=== PATIENT | female | born 1950 | race Caucasian/White ===

== ENCOUNTER → 2017-03-29 09:12 | Outpatient (CLI) | payer BC, SELFPAY ==
--- NOTE | 2017-03-29 09:18 | VDLE_ITS ---
Reason For Study: LEG PAIN, SWELLING RIGHT LEFT CFV is compressible, spontaneous, phasic, CFV is compressible, spontaneous, phasic, competent and demonstrates normal competent, and demonstrates normal augmentation. augmentation. FV is compressible, spontaneous, phasic, FV is compressible, spontaneous, phasic, competent and demonstrates normal competent and demonstrates normal augmentation. augmentation. POP V is compressible, spontaneous, phasic, POP V is compressible, spontaneous, phasic, competent and demonstrates normal competent and demonstrates normal augmentation. augmentation. T/P Trunk is compressible. T/P Trunk is compressible. PTV is compressible. PTV is compressible. RT PerV is compressible. LT PerV is compressible. RT GSV is INCOMPETENT at the SFJ for greater Left GSV is competent. than .5 sec. Left SSV is competent. RT GSV is competent throughout the remainder of vessel. RT SSV is competent. Procedure Exam performed in department. Interpretation Summary Deep veins of the lower extremities are bilaterally patent and compressible segmentally. There is no evidence of deep vein thrombosis on either side. Valvular competence appears intact within the proximal deep venous systems bilaterally. The greater saphenous veins appear bilaterally patent and compressible segmentally. The right sapheno-femoral junction is incompetent . Valvular competence appears to be intact segmentally within the greater saphenous veins bilaterally. Small saphenous veins are patent and competent bilaterally. Ordering Physician: Klaus Cruz Referring Physician: SHARITA COPELAND Performed By: Vee Castillo, DAVID, RVT
--- NOTE | 2017-04-05 21:55 | LEAS_ITS ---
Arterial Study - Arterial Study Arterial Study: This is a 66-year-old female with a history of hyperlipidemia. Suspecting the presence of atherosclerotic peripheral arterial occlusive disease, the patient was brought to the noninvasive vascular laboratory at this time for the purpose of bilateral noninvasive lower extremity arterial assessment. Doppler signal assessment was used to evaluate the pulses at ankle level bilaterally. The posterior tibial and dorsalis pedis pulses were triphasic bilaterally. Segmental limb pressures were obtained at ankle level bilaterally. The right ankle pressure, as determined by posterior tibial pulse, was measured at 168 mmHg. The right ankle pressure, as determined by dorsalis pedis pulse, was measured at 179 mmHg. The left ankle pressure, as determined by posterior tibial pulse, was measured at 170 mmHg. The left ankle pressure, as determined by dorsalis pedis pulse, was measured at 162 mmHg. Resting ankle-brachial indices were calculated bilaterally. The resting right ankle-brachial index was calculated to be 1.27. The resting left ankle- brachial index was calculated to be 1.21. Impression: Based upon the findings of this resting noninvasive lower extremity arterial study, there is no evidence of significant atherosclerotic peripheral arterial occlusive disease in the lower extremities bilaterally. Triphasic waveforms were noted at ankle level bilaterally. Resting ankle-brachial indices were bilaterally normal. In summary, this represents a normal resting noninvasive lower extremity arterial study bilaterally.
== END ==
PROVIDERS: Family Provider Family Medicine; PCP Family Medicine; Visit Provider Surgery
DX: I73.9 Peripheral vascular disease, unspecified (principal); M79.89 Other specified soft tissue disorders; I87.2 Venous insufficiency (chronic) (peripheral)
CPT/HCPCS: 93922; 93970

== ENCOUNTER 2017-04-12 10:30 | Outpatient (RCR) | payer BC, SELFPAY ==
--- NOTE | 2017-04-04 09:59 | PCM.WC.HP ---
(1) Leg swelling Status: Chronic Current Visit: Yes Code(s): M79.89 - Other specified soft tissue disorders (2) Edema of both legs Status: Chronic Current Visit: Yes Code(s): R60.0 - Localized edema (3) Pain in left leg Status: Chronic Current Visit: Yes Code(s): M79.605 - Pain in left leg (4) Pain in right leg Status: Chronic Current Visit: Yes Code(s): M79.604 - Pain in right leg (5) Obesity (BMI 30-39.9) Status: Chronic Current Visit: No Code(s): E66.9 - Obesity, unspecified (6) Hyperlipidemia Status: Acute Current Visit: No Code(s): E78.5 - Hyperlipidemia, unspecified (7) Hallux valgus Status: Chronic Current Visit: No Qualifiers: Laterality: unspecified laterality Qualified Code(s): M20.10 - Hallux valgus (acquired), unspecified foot Code(s): M20.10 - Hallux valgus (acquired), unspecified foot (8) Arthritis Status: Chronic Current Visit: No Code(s): M19.90 - Unspecified osteoarthritis, unspecified site (9) Chronic venous insufficiency Status: Chronic Current Visit: Yes Code(s): I87.2 - Venous insufficiency (chronic) (peripheral) (10) Dependent edema Status: Chronic Current Visit: Yes Code(s): R60.9 - Edema, unspecified (11) GERD (gastroesophageal reflux disease) Status: Chronic Current Visit: No Code(s): K21.9 - Gastro-esophageal reflux disease without esophagitis History of Present Illness Date of Service: 04/04/17 Chief Complaint: Chronic swelling, edema, and discomfort in the lower extremities bilaterally. History of Wound: The patient presents complaining of pain, swelling, and edema in her lower extremities bilaterally. Her primary concern is that of the swelling and edema which has been present for over one year. It is associated with aching, discomfort, and pain. The symptoms and manifestations affect both lower extremities. The patient claims to sleep on a flat mattress at night. She denies a history of thrombophlebitis. She has undergone no vein procedures in the past. Since her initial office visit, several weeks ago, we have implemented leg elevation, avoidance of idle standing and sitting, enhanced activity, etc. Nonsteroidal anti-inflammatory medications have been recommended as necessary. Weight loss has been also advised. Patient was referred to the wound center setting for the initiation of compression by means of compression wraps to the lower extremities, as a prelude to anticipated graduated compression stockings of at least 20-30 mmHg compression. The patient states that her swelling is worse at the end of the day. The patient admits that her lifestyle is relatively inactive. She stands for long hours each day at work, and traditionally sits for long hours at home idlely. Past Medical History Past Medical History: Chronic Problems Leg swelling (Chronic) Edema of both legs (Chronic) Pain in left leg (Chronic) Pain in right leg (Chronic) Obesity (BMI 30-39.9) (Chronic) Hallux valgus (Chronic) Arthritis (Chronic) Chronic venous insufficiency (Chronic) Dependent edema (Chronic) GERD (gastroesophageal reflux disease) (Chronic) Past Medical History: Patient has a history of arthritis in her feet, hallux valgus deformity, and hyperlipidemia. She also suffers from gastroesophageal reflux disease. The patient's history is negative for myocardial infarction, congestive heart failure, hypertension, diabetes mellitus, cerebrovascular accident, cancer, renal disease, pulmonary disease, and thyroid disease. Surgical History: - - She underwent right total hip replacement in 2014. The patient is a Ab0. Allergies/Adverse Reactions: Allergies No Known Allergies Allergy (Verified 01/22/15 15:06) Home Medications: Ambulatory Orders Medication Instructions Recorded Cholecalciferol (VIT D3) [Vitamin 1,000 unit PO DAILY 01/22/15 D3] Meloxicam 15 mg PO DAILY 01/22/15 Pravastatin Sodium 40 mg PO QHS 01/22/15 Aspirin 325 mg PO BIDCM #60 tablet 02/11/15 Hydrocodone Bitart/Apap 5-325 1 - 2 tablet PO Q4H PRN PRN #120 02/11/15 [[place] 5/325] tablet - Family History Maternal - - The patient's father at the age of 65 with a history of heart disease. Patient's mother at the age of 81 with a history of heart disease, rheumatoid arthritis, and emphysema. Lives: Spouse/ Significant Other Smoking Status: Never smoker Tobacco Use: Non-smoker Alcohol: None Drugs: None Review of Systems Constitutional: Denies: Chills, Fever, Weight Change Eyes: Denies: Pain, Vision Change HEENT: Denies: Difficulty Hearing, Difficulty Swallowing, Sinus Congestion Cardiovascular: Denies: Chest Pain, Palpitations Respiratory: Denies: Cough, Shortness of Breath Gastrointestinal: Denies: Diarrhea, Nausea, Vomiting Genitourinary: Denies: Dysuria, Hematuria Endocrine: Denies: Heat/ Cold Intolerance, Polydipsia, Polyuria Hematologic/ Lymphatic: Denies: Easy Bruising, Easy Bleeding - Physical Exam General: Alert, Oriented x3, Cooperative, No apparent distress, Well developed, Well nourished, - - The patient appears morbidly obese. HEENT: Atraumatic, PERRLA, EOMI, Normocephalic Oral: Moist Mucosa, No Gingival or Mucosal Lesions/ Ulcerations Neck: Supple, No JVD, Negative Carotid Bruits, Negative Hepatojugular Reflux, No Nuchal Rigidity, Trachea Midline Lungs: Clear to auscultation, Normal air movement, No rhonchi, No wheeze, No rales Cardiovascular: Regular rate, Regular Rhythm, Normal S1, Normal S2, No murmurs, No Ectopic Activity Abdomen: Bowel Sounds Present, Soft, Non Tender, Non-Distended, Obese Extremities: No clubbing, No cyanosis, No Calf Tenderness, Edema, - - Bilateral lower extremity swelling and edema is noted. There are no significant skin changes in the lower extremities bilaterally. There are no open wounds or ulcerations. No sign of infection or cellulitis. Circumference measurements are documented elsewhere. Skin: No rashes, No breakdown Musculoskeletal: No Muscle Wasting Neurological: Cranial nerves II-XII grossly intact, Neuro grossly intact Psych/Mental Status: Normal Affect, Appropriate, Alert and oriented to time, place, person, mood and affect Debridement Note No debridement was completed today Assessment/Plan Active Problems Leg swelling (Chronic) Edema of both legs (Chronic) Pain in left leg (Chronic) Pain in right leg (Chronic) Chronic venous insufficiency (Chronic) Dependent edema (Chronic) Assessment: This is a 66-year-old female who presents with swelling, edema, and discomfort in her lower extremities. She is also morbidly obese. It appears as though the swelling and edema in her lower extremities is related to her lifestyle issues, including immobility, prolonged sitting and standing, failure of leg elevation, obesity, etc. The patient has undergone a recent venous duplex examination, revealing incompetence at the level of the right saphenofemoral junction. However, the great and small saphenous veins are otherwise bilaterally patent and competent. Noninvasive lower extremity arterial study is normal, with triphasic waveforms at ankle level bilaterally, and normal ankle-brachial indices bilaterally. Plan: The patient has been previously educated as to the appropriate conservative treatment measures relative to the swelling and edema in her lower extremities. These measures included leg elevation, avoidance of idle standing and sitting, enhanced activity, weight loss measures, etc. Nonsteroidal anti-inflammatory medications are to be used as necessary. We are to implement the use of compression wraps to the lower extremities at this time, using SurePress wraps, which will be applied by the patient on a daily basis. She is to be educated in the appropriate means of application. It is anticipated that we will ultimately transition to the use of graduated compression stockings within the next several weeks, of at least 20-30 mmHg compression, once the swelling and edema in the lower extremities has been minimized. The patient is return to the wound healing center in 1 week for reassessment. The patient is not a smoker. Influenza vaccine was not administered today. Patient weighs 185 pounds. She stands 5 feet 0 inches tall. Her BMI is 36.1, which places her in a class II category. Weight loss has been recommended, and the patient has been advised to collaborate with her primary care physician in this regard.
[2017-04-04 10:28] VITALS: BP 147/95; PULSE 87; RESP 18; TEMP 37.6; BMI 36.1
[2017-04-12 10:57] VITALS: BP 138/82; PULSE 80; RESP 16; TEMP 35; BMI 36.1
--- NOTE | 2017-04-12 17:28 | PCM.WC.PN ---
(1) Chronic venous insufficiency Status: Chronic Code(s): I87.2 - Venous insufficiency (chronic) (peripheral) (2) Dependent edema Status: Chronic Code(s): R60.9 - Edema, unspecified (3) Edema of both legs Status: Chronic Code(s): R60.0 - Localized edema Type of Wound Date of Service: 04/12/17 Chief Complaint: Chronic swelling, edema, and discomfort in the lower extremities bilaterally. History of Wound: The patient presents complaining of pain, swelling, and edema in her lower extremities bilaterally. Her primary concern is that of the swelling and edema which has been present for over one year. It is associated with aching, discomfort, and pain. The symptoms and manifestations affect both lower extremities. The patient claims to sleep on a flat mattress at night. She denies a history of thrombophlebitis. She has undergone no vein procedures in the past. Since her initial office visit, several weeks ago, we have implemented leg elevation, avoidance of idle standing and sitting, enhanced activity, etc. Nonsteroidal anti-inflammatory medications have been recommended as necessary. Weight loss has been also advised. Patient was referred to the wound center setting for the initiation of compression by means of compression wraps to the lower extremities, as a prelude to anticipated graduated compression stockings of at least 20-30 mmHg compression. The patient states that her swelling is worse at the end of the day. The patient admits that her lifestyle is relatively inactive. She stands for long hours each day at work, and traditionally sits for long hours at home idlely. Progress of Wound: Ms. Campos was previously seen by Dr. Cruz for the management of her chronic lower extremity edema however would now like to transfer care due to her work schedule. She has had investigations done recently which were not suggestive of incompetence of the right saphenofemoral junction but otherwise normal venous and arterial problems. She has daily lower extremity compression with surepress with significant improvement of the swelling. Plan was for compression stocking subseqeuntly. She doing well today and is hoping she can be prescribed her compression stockings today. She denies any problems at this time. She is trying to increase her physical activity however, is limited due to the nature of her job. - Physical Exam Vital Signs Temp Pulse Resp BP 95.0 F L 80 16 138/82 H 04/12/17 10:57 04/12/17 10:57 04/12/17 10:57 04/12/17 10:57 General: Alert, Oriented x3, Cooperative, No apparent distress HEENT: Atraumatic, Normocephalic Oral: Moist Mucosa Neck: Supple Lungs: Normal air movement Cardiovascular: Regular rate Extremities: No clubbing, No cyanosis, Edema Wound Measurements and Assessment WC - Nurse 1 - General Ulcer Measurement Start: 04/04/17 09:43 Freq: Status: Active Protocol: Activity Type Activity Date Activity User E-Sign Co-Sign Detail Recorded Client Recorded Date Recorded By Document 04/12/17 10:57 MW [id number] 04/12/17 10:59 MW 04/12/17 10:57 Wound Center Nurse 1 [Ulcer Assessment] #1 Bilateral Edema -Combined with other wound No [Edema Assessment] -Lower Limb Edema Present Yes -Right Calf (cm) 40.5 -Right Ankle (cm) 22.6 -Left Calf (cm) 42.5 -Left Ankle (cm) 22.7 Musculoskeletal: No Muscle Wasting Neurological: Cranial nerves II-XII grossly intact Psych/Mental Status: Normal Affect Debridement Note No debridement was completed today Assessment/Plan Assessment: This is a 66-year-old female who presents with swelling, edema, and discomfort in her lower extremities. She is also morbidly obese. It appears as though the swelling and edema in her lower extremities is related to her lifestyle issues, including immobility, prolonged sitting and standing, failure of leg elevation, obesity, etc. The patient has undergone a recent venous duplex examination, revealing incompetence at the level of the right saphenofemoral junction. However, the great and small saphenous veins are otherwise bilaterally patent and competent. Noninvasive lower extremity arterial study is normal, with triphasic waveforms at ankle level bilaterally, and normal ankle-brachial indices bilaterally. Plan: Significant improvemnt of her bilateral lower extremity edema with Sure Press. I believe it is now okay to transition to compression stockings. Prescription for Knee high compression stockings 20 - 30 mmHg given. Advised to wear this daily. Continue exercise as tolerated. Avoid Idle standing. Elevate lower extremity when sitted. Follow up in 1 - 2 weeks and possibly discharge from the wound center then. Advised to call with any questions or concerns.
== END 2017-04-12 23:59 ==
LOC: WC 10:30
PROVIDERS: Family Provider Family Medicine; PCP Family Medicine; Visit Provider Internal Medicine
DX: I87.2 Venous insufficiency (chronic) (peripheral) (principal); R60.0 Localized edema; M79.89 Other specified soft tissue disorders; E66.01 Morbid (severe) obesity due to excess calories; Z68.36 Body mass index [BMI] 36.0-36.9, adult; Z71.3 Dietary counseling and surveillance; M79.604 Pain in right leg; M79.605 Pain in left leg; E78.5 Hyperlipidemia, unspecified; M20.10 Hallux valgus (acquired), unspecified foot; M19.90 Unspecified osteoarthritis, unspecified site; K21.9 Gastro-esophageal reflux disease without esophagitis; Z79.899 Other long term (current) drug therapy; Z79.82 Long term (current) use of aspirin
CPT/HCPCS: 99212; 99213; G0463

== ENCOUNTER 2017-04-26 08:25 | Outpatient (RCR) | payer BC, SELFPAY ==
[2017-04-13 01:13] VITALS: PULSE 80; RESP 16; TEMP 35
[2017-04-26 09:08] VITALS: BP 155/82; PULSE 93; RESP 18; TEMP 37.2
--- NOTE | 2017-04-26 10:34 | PN.PCM_ITS ---
(1) Chronic venous insufficiency Status: Chronic Current Visit: Yes Code(s): I87.2 - Venous insufficiency ( chronic) (peripheral) (2) Dependent edema Status: Chronic Current Visit: Yes Code(s): R60.9 - Edema, unspecified Type of Wound Date of Service: 04/26/17 Chief Complaint: Chronic swelling, edema, and discomfort in the lower extremities bilaterally. History of Wound: The patient presents complaining of pain, swelling, and edema in her lower extremities bilaterally. Her primary concern is that of the swelling and edema which has been present for over one year. It is associated with aching, discomfort, and pain. The symptoms and manifestations affect both lower extremities. The patient claims to sleep on a flat mattress at night. She denies a history of thrombophlebitis. She has undergone no vein procedures in the past. Since her initial office visit, several weeks ago, we have implemented leg elevation, avoidance of idle standing and sitting, enhanced activity, etc. Nonsteroidal anti-inflammatory medications have been recommended as necessary. Weight loss has been also advised. Patient was referred to the wound center setting for the initiation of compression by means of compression wraps to the lower extremities, as a prelude to anticipated graduated compression stockings of at least 20-30 mmHg compression. The patient states that her swelling is worse at the end of the day. The patient admits that her lifestyle is relatively inactive. She stands for long hours each day at work, and traditionally sits for long hours at home idlely. Progress of Wound: Stable. - Physical Exam Vital Signs Temp Pulse Resp BP 99 F 93 18 155/82 H 04/26/17 09:08 04/26/17 09:08 04/26/17 09:08 04/26/17 09:08 General: Alert, Oriented x3, Cooperative, No apparent distress HEENT: Atraumatic, Normocephalic Oral: Moist Mucosa Neck: Supple Lungs: Normal air movement Cardiovascular: Regular rate Extremities: Edema Wound Measurements and Assessment WC - Nurse 1 - General Ulcer Measurement Start: 04/26/17 09:08 Freq: Status: Active Protocol: Activity Type Activity Date Activity User E-Sign Co-Sign Detail Recorded Client Recorded Date Recorded By Document 04/26/17 09:08 RB [id number] 04/26/17 09:10 RB 04/26/17 09:08 Wound Center Nurse 1 [Edema Assessment] -Lower Limb Edema Present Yes -Right Calf (cm) 41 -Right Ankle (cm) 23.5 -Left Calf (cm) 41.8 -Left Ankle (cm) 24 Musculoskeletal: No Muscle Wasting Neurological: Cranial nerves II-XII grossly intact Psych/Mental Status: Normal Affect Debridement Note No debridement was completed today Assessment/Plan Active Problems Chronic venous insufficiency (Chronic) Dependent edema (Chronic) Assessment: This is a 66-year-old female who presents with swelling, edema, and discomfort in her lower extremities. She is also morbidly obese. It appears as though the swelling and edema in her lower extremities is related to her lifestyle issues, including immobility, prolonged sitting and standing, failure of leg elevation, obesity, etc. The patient has undergone a recent venous duplex examination, revealing incompetence at the level of the right saphenofemoral junction. However, the great and small saphenous veins are otherwise bilaterally patent and competent. Noninvasive lower extremity arterial study is normal, with triphasic waveforms at ankle level bilaterally, and normal ankle-brachial indices bilaterally. Plan: Patient is doing well. Tolerating the compression stocking well apart from some minor issues. Patient educated on appropriate use and readjusting. Avoid Idle standing. Elevate lower extremity when sitted. Discharged from the wound center. This note was generated with [employer] dictation software. It may contain incorrect words, spelling, and punctuation that were not noted in checking the note before signing.
== END 2017-05-13 23:59 ==
LOC: WC 08:25
PROVIDERS: Family Provider Family Medicine; PCP Family Medicine; Visit Provider Internal Medicine
DX: I87.2 Venous insufficiency (chronic) (peripheral) (principal); R60.0 Localized edema; M79.89 Other specified soft tissue disorders; E66.01 Morbid (severe) obesity due to excess calories; Z68.36 Body mass index [BMI] 36.0-36.9, adult; Z71.3 Dietary counseling and surveillance
CPT/HCPCS: 99212; G0463

== ENCOUNTER → 2020-04-06 13:02 | Outpatient (CLI) | payer BC, SELFPAY ==
--- NOTE | 2020-04-06 13:37 | EKG12_ITS ---
Test Reason : PREOP Blood Pressure : / mmHG Vent. Rate : 089 BPM Atrial Rate : 089 BPM P-R Int : 160 ms QRS Dur : 086 ms QT Int : 344 ms P-R-T Axes : 054 046 058 degrees QTc Int : 418 ms Normal sinus rhythm Normal ECG Confirmed by ABHIJIT OLMEDO, ALEK ([id number]), video effects editor PIETER BROWN ([id number]) on 04/07/2020 11:20:57 AM Referred By: Omari Gamez Confirmed By:ALEK LACEY MD
[2020-04-06 14:00] LABS: Hematocrit 37.8 % (37-47); Hemoglobin 11.4 g/dL (12.0-15.0); Mean Corp Hgb Conc 30.2 g/dL (32-36); Mean Corpuscular Hgb 29.2 pg (27.0-32.0); Mean Corpuscular Volume 96.9 fL (81-99); Mean Platelet Vol. 8.5 fl (6.2-12.0); Platelet Count 357 K/mm3 (150-450); RBC Distribution Width CV 14.4 % (11.6-14.6); RBC Distribution Width SD 51.8 fl (35.1-43.9); White Blood Count 5.3 K/mm3 (4.4-11.0)
[2020-04-06 14:23] LABS: Anion Gap 7 (5-15); BUN 17 mg/dL (7-18); BUN/Creat Ratio 20.2 RATIO (10-20); Calcium,Total 9.2 mg/dL (8.5-10.1); Chloride 103 mmol/L (98-107); Creatinine, Serum 0.84 mg/dL (0.55-1.02); EST Glomerular Filtration Rate 72 mL/min (>60); Est Glom Filt Rate - Afr Amer 87 mL/min (>60); Glucose 197 mg/dL (74-106); Potassium 3.6 mmol/L (3.5-5.1); Sodium Level 138 mmol/L (136-145)
== END ==
PROVIDERS: Physician Assistant; PCP Family Medicine; Referring Provider Orthopaedic Surgery; Visit Provider Orthopaedic Surgery
DX: Z11.59 Encounter for screening for other viral diseases (principal); Z01.818 Encounter for other preprocedural examination; Z01.810 Encounter for preprocedural cardiovascular examination
CPT/HCPCS: 36415; 80048; 85027; 87635; 93005; C9803; U0005; U0003

== ENCOUNTER → 2020-04-15 15:10 | Outpatient (CLI) | payer BC, SELFPAY ==
--- NOTE | 2020-04-15 08:30 | BON_PTH ---
PATIENT: INESSA SARAH LOC: [facility] U#:[id number] AGE/SX: 74/F ROOM: RE04/15/[address]: Dr. Omari Gamez DO : 1950 BED: DIS: SPEC #: [id number] RECD: 04/15/20 15:02 STATUS: SHAINA SHAISTA #: [id number] POLLO: 04/15/20 08:[address]: Omari Gamez DEPT: SURGICAL PATHOLOGY RECD BY: Jeannette Muñoz ENTERED: 04/16/20 08:09 SP TYPE: Bone OTHR DR: Dr. Gary Herrera MD [facility] Tissues: Hip, NOS Procedures: Decalcification bone/plaque Surgery Specimen Level IV HEADER OPERATION: Right total hip arthroplasty PRE-OP DIAGNOSIS: Primary osteoarthritis right hip TISSUE SUBMITTED: Bone right hip MICROSCOPIC DIAGNOSIS Bone right hip, total hip replacement/resection: Femoral head with degenerative osteoarthritic changes. Fragments of fibroadipose tissue, fibroconnective tissue and skeletal muscle tissue. SARAH:ron 04/22/2020 MICROSCOPIC DESCRIPTION Slides are reviewed. GROSS DESCRIPTION Received is one container labeled with the patient's name and designated bone right hip. The specimen consists of a kyle femoral head with portion of femoral neck. The femoral head measures 3.5 x 4 x 4.5 cm. A portion of femoral neck measures up to 2 cm in length. Also present in the container is a detached piece of bone measuring 1.5 x 1.5 x 1 cm. The articular surface displays prominent osteophyte formation, eburnation and bone erosion. Also present in the container are three variable sized pieces of soft tissue measuring in aggregate 4.5 x 4.5 x 1 cm. [employer] sections are submitted in two cassettes as follows: 1 - soft tissue, 2 - bone after decalcification. / SARAH:ron 04/16/2020 TC:5 CPT: 75843, [id number]
== END ==
PROVIDERS: PCP Family Medicine; Referring Provider Orthopaedic Surgery; Visit Provider Orthopaedic Surgery
DX: M16.11 Unilateral primary osteoarthritis, right hip (principal)
CPT/HCPCS: 88305; 88311

== ENCOUNTER 2020-08-26 21:46 | Inpatient (IN) | payer BC, MEDICARE, SELFPAY ==
[2020-08-26] VITALS (7 sets, daily range): BP systolic 118–157; BP diastolic 70–96; PULSE 114–129; RESP 21–31; TEMP 38.2–39.1; O2SAT 94–99; BMI 33.4
--- NOTE | 2020-08-26 22:07 | CT_ITS ---
STUDY: CT ABDOMEN AND PELVIS WITH CONTRAST REASON FOR EXAM: Female, 70 years old. Abd pain RADIATION DOSAGE (If Supplied By Facility): CTDIvol = ( 19.18 ) mGy, DLP = ( 2094.22 ) mGycm TECHNIQUE: Transaxial images were obtained from the dome of the diaphragm to the symphysis pubis without oral contrast. IV 100mL Isovue-370 was administered. Sagittal and coronal images were reconstructed. Individualized dose optimization techniques were used for this CT. COMPARISON: None. FINDINGS: The visualized lung bases are unremarkable. The visualized portions of the heart are within normal limits. Normal liver. Normal gallbladder and extrahepatic biliary system. Normal spleen. Normal pancreas. Normal bilateral adrenal glands. Normal right kidney. There is mild hydronephrosis with perinephric stranding of the left kidney. There is mild dilatation of the left ureter. Normal visualized stomach. Normal small intestine. There are multiple colonic diverticula consistent with diverticulosis. The appendix is visualized and appears normal. There is diffuse atherosclerotic calcification of the abdominal aorta, without a demonstrated aneurysm. Normal inferior vena cava. Normal retroperitoneum. There is wall thickening of the urinary bladder. There is atrophy of the uterus. There is no free fluid in the abdomen or pelvis. Normal abdominal wall. There is scoliosis and degenerative change of the spine. There is right hip replacement. CT/Abdomen/Pelvis W IV Cont ONLY IMPRESSION: Left hydroureteronephrosis. Wall thickening of the urinary bladder. No stones are seen. Colonic diverticulosis. No obstruction or abscess. Electronically Signed: Baudilio Travis MD at 23:20 EDT , Service support ,
--- NOTE | 2020-08-26 22:08 | EKG12_ITS ---
Test Reason : DYSRHYTHMIA Blood Pressure : / mmHG Vent. Rate : 131 BPM Atrial Rate : 131 BPM P-R Int : 132 ms QRS Dur : 072 ms QT Int : 284 ms P-R-T Axes : 081 057 044 degrees QTc Int : 419 ms Sinus tachycardia Nonspecific ST abnormality Abnormal ECG Confirmed by TREVON OLMEDO, CHRISTEN ([id number]), technical editor PIETER BROWN ([id number]) on 08/28/2020 9:25:52 AM Referred By: TERESE Confirmed By:JACQUELIN LESTER MD
--- NOTE | 2020-08-26 22:10 | EX.ED.DYSGE1 ---
HPI History of Present Illness Chief Complaint: Complaint Informant: patient and spouse/S.O. Limited: other Onset/Context/Timing Onset: Yesterday Context: Gradual Onset Timing: Continuous Current Severity: Mild Maximum Severity: Moderate Narrative Narrative: 70-year-old female. Limited past medical history per her . Prior knee and hip replacement. Patient is a limited informant due to her current medical condition. states yesterday she started not feeling well. Today she has had a fever with limited intake. Prior to that was complaining of dysuria and abdominal pain. He denies any vomiting or diarrhea. No cough or shortness of breath. She has been vaccinated for Covid. Prior similar symptoms: No Recent Illness/Hospitalization: No PFSH PFSH Medical History FH: total knee replacement Home Medications meloxicam 15 mg PO DAILY 01/22/15 [History Last Taken Unknown] aspirin 81 mg PO DAILY 08/26/20 [History Last Taken Unknown] ergocalciferol (vitamin D2) 50,000 unit PO QWEEK 08/26/20 [History Last Taken Unknown] sertraline 25 mg PO DAILY 08/26/20 [History Last Taken Unknown] Allergy/AdvReac Type Severity Reaction Status Date / Time latex Allergy PT UNABLE Verified 08/26/20 21:53 TO RESPOND-NEEDS F/U Surgical History S/P hip replacement Social History Smoking Status: Never smoker ROS ROS ED ROS Narrative Fever, dysuria and abdominal pain. Review of Systems ROS Unobtainable: due to mental status Constitutional Constitutional ED: Reports fever(s) Eyes Eyes: Denies change in vision ENT ENT ED: Denies ear pain or sore throat Cardiovascular Cardiovascular: Denies chest pain Respiratory/Chest Respiratory/Chest: Denies cough or dyspnea Gastrointestinal Gastrointestinal: Reports abdominal pain; Denies diarrhea, nausea or vomiting Genitourinary Genitourinary ED: Reports dysuria and urinary frequency; Denies hematuria Musculoskeletal Musculoskeletal: Denies myalgias Integumentary Denies rash Neurologic Neurologic: Denies headache(s) Psychiatric Psychiatric: Denies depression Endocrine Endocrinology: Denies polyuria Allergic/Immunologic Allergic/Immunologic ED: Denies urticaria EXAM Physical Exam Narrative Exam Narrative: Older female febrile. Initial blood pressure 118/70. Initial temperature 102.3. She does look septic. Most likely dehydrated. HEENT exam unremarkable except dry mucous membranes.. No trauma. Neck nontender no lymphadenopathy. No meningismus. Lungs clear to auscultation bilaterally. Heart tachycardic rate about 130 no murmur. Abdomen diffusely tender no peritoneal signs. Nondistended. Patient moving all 4 extremities. No cellulitis seen. No hot or swollen joints. Skin is warm to touch. Neurologically her eyes are open she is awake she is very limited informant. She has a decreased mental status. Const Vital Signs: 08/26/20 21:47 08/26/20 21:53 08/26/20 22:11 Temperature 102.3 F H 102.3 F H 102 F H Temperature Source Temporal Temporal Temporal Pulse Rate 129 H 129 H Respiratory Rate 30 H 30 H Blood Pressure 118/70 118/70 Blood Pressure Mean 86 86 Pulse Ox 94 94 99 Oxygen Delivery Method Room Air Room Air Room Air 08/26/20 22:17 Temperature Temperature Source Pulse Rate 126 H Respiratory Rate 31 H Blood Pressure 157/96 H Blood Pressure Mean 116 Pulse Ox 94 Oxygen Delivery Method Positive well nourished and well developed; Negative for unkempt General Appearance ED: well developed; Negative for unkempt HEENT Negative for trauma or tenderness Eyes PERRL Neck no lymphadenopathy, supple and no JVD General: Negative for tenderness Chest Wall inspection of chest normal and palpation of chest normal Resp normal respiratory effort and clear to auscultation bilaterally Cardio regular rhythm, S1 normal heart sound, S2 normal heart sound and no murmurs GI normal to inspection, nondistended, normoactive bowel sounds and no masses; Negative for non-tender or non-distended Auscultation: normoactive bowel sounds Palpation: soft and tender Back/Spine no CVA tenderness Neuro Neuro Narrative: Patient is awake and eyes are open she does not follow any commands. She is not interacting or speaking with me to give me much of any history. Sensorium / Orientation: alert, lethargic and stuporous Psych Appearance: Negative for unkempt Mood & Affect: depressed Skin no rashes or lesions noted and no wounds MDM MDM MDM Narrative Medical decision making narrative: Elderly female clinically appears ill. Vital signs are stable she is febrile and tachycardic. She will undergo a septic work-up. She will be treated with IV fluids and Tylenol. She will be admitted. I will get her started on empiric IV antibiotics. Labs are consistent with a UTI and concern for urosepsis with her fever and her presentation. She will be started on IV Rocephin. Hospitalist will be paged for admission. Repeat exam patient looks much better at 11:40 PM. After IV fluids she is looking much better. She is also already been started on IV Rocephin. I spoke to the hospitalist patient will be admitted to the PCU. Lab Data Attestation: I reviewed the patient's lab results. Lab results narrative: CBC shows a white count 1.5. Hemoglobin 10.9. Electrolytes unremarkable gap of 10. Creatinine is elevated at 1.82. Liver enzymes are normal. Lactic acid is 1.4. Urinalysis is consistent with an infection with greater than 100 red cells. Greater to 100 white cells 2+ bacteria. No nitrites. Blood and urine cultures are pending. Chest x-ray portable 1 view interpreted by myself no acute abnormality. CT as read by the radiologist and I reviewed. Labs: Laboratory Results - last 24 hr 08/26/20 08/26/20 08/26/20 21:50 21:50 21:50 WBC 11.5 H RBC 4.03 L Hgb 10.9 L Hct 36.2 L MCV 89.8 MCH 27.0 MCHC 30.1 L RDW Std Deviation 57.2 H RDW Coeff of Meka 17.5 H Plt Count 361 MPV 9.0 Immature Gran % (Auto) 1.200 H Neut % (Auto) 78.5 H Lymph % (Auto) 10.6 L [place] % (Auto) 8.9 Eos % (Auto) 0.2 Baso % (Auto) 0.6 Absolute Neuts (auto) 9.0 H Absolute Lymphs (auto) 1.22 Nucleated RBC % 0 PT INR APTT Sodium 135 L Potassium 4.1 Chloride 100 Carbon Dioxide 25.0 Anion Gap 10 BUN 23 H Creatinine 1.82 H Estim Creat Clear Calc 23.40 Est GFR (MDRD) Af Amer 36 L Est GFR (MDRD) Non-Af 29 L BUN/Creatinine Ratio 12.6 Glucose 153 H Lactic Acid 1.4 Calcium 8.6 Total Bilirubin 0.50 AST 21 ALT 18 Alkaline Phosphatase 97 Total Protein 8.2 Albumin 3.2 Globulin 5.0 H Albumin/Globulin Ratio 0.6 L Urine Color Urine Clarity Urine pH Ur Specific [place] Urine Protein Urine Glucose (UA) Urine Ketones Urine Occult Blood Urine Nitrite Urine Bilirubin Urine Urobilinogen Ur Leukocyte Esterase Urine RBC Urine WBC Ur Squamous Epith Cells Amorphous Sediment Urine Bacteria Urine Mucus 08/26/20 08/26/20 22:05 22:25 WBC RBC Hgb Hct MCV MCH MCHC RDW Std Deviation RDW Coeff of Meka Plt Count MPV Immature Gran % (Auto) Neut % (Auto) Lymph % (Auto) [place] % (Auto) Eos % (Auto) Baso % (Auto) Absolute Neuts (auto) Absolute Lymphs (auto) Nucleated RBC % PT 15.0 H INR 1.3 APTT 30.7 Sodium Potassium Chloride Carbon Dioxide Anion Gap BUN Creatinine Estim Creat Clear Calc Est GFR (MDRD) Af Amer Est GFR (MDRD) Non-Af BUN/Creatinine Ratio Glucose Lactic Acid Calcium Total Bilirubin AST ALT Alkaline Phosphatase Total Protein Albumin Globulin Albumin/Globulin Ratio Urine Color Yellow Urine Clarity Turbid Urine pH 6.0 Ur Specific [place] 1.010 Urine Protein 100 H Urine Glucose (UA) Normal Urine Ketones 5 H Urine Occult Blood 250 H Urine Nitrite Negative Urine Bilirubin Negative Urine Urobilinogen Normal Ur Leukocyte Esterase 500 H Urine RBC > 100 SEEN Urine WBC >100 SEEN Ur Squamous Epith Cells 0-5 SEEN Amorphous Sediment 1+ Urine Bacteria 2+ Urine Mucus 0 SEEN Radiography Chest X-Ray - ED: 1 View, Read by ED Physician, Read by Radiologist, Heart, Lungs, Mediastinum and Bony Structures Diagnostic Testing: Radiology Impression Abdomen/Pelvis CT 08/26/20 22:07 IMPRESSION: Left hydroureteronephrosis. Wall thickening of the urinary bladder. No stones are seen. Colonic diverticulosis. No obstruction or abscess. Electronically Signed: Baudilio Travis MD at 23:20 EDT , Service support , Chest X-Ray 08/26/20 22:29 IMPRESSION: Degenerative changes, as described above. No demonstrated acute cardiopulmonary process. Electronically Signed: Baudilio Travis MD at 23:07 EDT , Service support , Rhythm Strip Rhythm Strip: Sinus Rhythm Rate: 131 Ectopy: None EKG Initial EKG: Attestation: I personally reviewed and interpreted this EKG as follows: Interpretation: Sinus Rhythm, No Acute Injury Pattern and Sinus Tachycardia Comments: Sinus tachycardia rate of 131 with no acute signs of OH or ischemia. Currently no old EKG available for comparison. Critical Care Time Critical Care Time: Yes Critical care time (excluding procedures): 30-74 minutes, Including time spent:, Discussing w/Patient &/or Family/Colorer Machine, Discussing w/Consultants, Arranging Admission or Transfer and Performing Direct Patient Care at Bedside Discharge Plan Dx/Rx/DC Orders Clinical Impression: Sepsis, Acute UTI, Fever, Acute kidney injury Disposition Disposition: [facility]
--- NOTE | 2020-08-26 22:16 | ED.RN ---
Madiwick placed. Pt tolerated well.
[2020-08-26 22:19] LABS: Mucous, Urine 0 SEEN /hpf (<or=2+)
[2020-08-26] MEDS: 0.9% Normal Saline 1,000 ML 999 ML IV (22:20)
[2020-08-26] MEDS: Acetaminophen 500 MG Tablet 1000 MG PO (22:20)
--- NOTE | 2020-08-26 22:29 | RAD_ITS ---
STUDY: X-RAY CHEST REASON FOR EXAM: Female, 70 years old. fever TECHNIQUE: AP portable view of the chest. COMPARISON: None. FINDINGS: There are monitoring devices. There is lower lung atelectasis. There is no demonstrated pleural abnormality. There is mild cardiac enlargement. Normal mediastinum and dal[place]. Normal visualized pulmonary arteries. Normal visualized aortic arch and descending thoracic aorta. There are diffuse degenerative changes of the visualized thoracic spine. There is degenerative osteoarthritis of the bilateral shoulders. There is no demonstrated abnormality of the visualized soft tissue structures of the upper abdomen. RAD/Chest 1 View (Portable) IMPRESSION: Degenerative changes, as described above. No demonstrated acute cardiopulmonary process. Electronically Signed: Baudilio Travis MD at 23:07 EDT , Service support ,
[2020-08-26 22:33] LABS: ALB/GLOB Ratio 0.6 RATIO (0.9-2.4); AST(SGOT) 21 U/L (15-37); Absolute Lymphocyte Count 1.22 X10^3/uL (0.83-4.51); Alanine Aminotransfer ALT/SGPT 18 U/L (13-56); Albumin, Serum 3.2 g/dL (3.2-5.0); Alkaline Phosphatase 97 U/L (45-117); Anion Gap 10 (5-15); BUN 23 mg/dL (7-18); BUN/Creat Ratio 12.6 RATIO (10-20); Basophil# 0.07 X10^3/uL; Basophil% 0.6 % (0-1); Calcium,Total 8.6 mg/dL (8.5-10.1); Chloride 100 mmol/L (98-107); Creatinine, Serum 1.82 mg/dL (0.55-1.02); EST Glomerular Filtration Rate 29 mL/min (>60); Eosinophil# 0.02 X10^3/uL; Eosinophils% 0.2 % (0-5); Est Glom Filt Rate - Afr Amer 36 mL/min (>60); Glucose 153 mg/dL (74-106); Hematocrit 36.2 % (37-47); Hemoglobin 10.9 g/dL (12.0-15.0); Lactic Acid 1.4 mmol/L (0.4-1.9); Lymphocyte # 1.22 X10^3/ul (0.83-4.51); Lymphocyte % 10.6 % (19-41); Mean Corp Hgb Conc 30.1 g/dL (32-36); Mean Corpuscular Volume 89.8 fL (81-99); Monocyte# 1.02 X10^3/uL; Monocyte% 8.9 % (0-10); NRBC Flagged by Analyzer 0 % (0-5); Neutrophil # 8.99 X10^3/uL (2.7-7.7); Neutrophil % 78.5 % (47-70); Platelet Count 361 K/mm3 (150-450); Potassium 4.1 mmol/L (3.5-5.1); Protein, Total 8.2 g/dL (6.4-8.2); RBC Distribution Width CV 17.5 % (11.6-14.6); RBC Distribution Width SD 57.2 fl (35.1-43.9); Red Blood Count 4.03 M/mm3 (4.2-5.4); Sodium Level 135 mmol/L (136-145); White Blood Count 11.5 K/mm3 (4.4-11.0)
[2020-08-26 22:34] LABS: Color, Urine Yellow (Yellow); Glucose, Dipstick Normal (Normal); Ketone-Dipstick 5 mg/dl (Negative); Leukocyte Esterase-Dipstick 500 /ul (Negative); Nitrite-Dipstick Negative (Negative); Occult Blood-Urine 250 /ul (Negative); Protein-Dipstick 100 mg/dl (Negative); Urine Bilirubin Dipstick Negative (Negative); Urine Clarity Turbid (Clear); Urine Urobilinogen Normal (Normal)
[2020-08-26 22:41] LABS: International Normalized Ratio 1.3
[2020-08-26 22:41] LABS: Red Blood Cells-Urine > 100 SEEN /hpf (0-5); Squamous Epithelial Cells - UA 0-5 SEEN /hpf (5-10); White Blood Cells >100 SEEN /hpf (0-5)
[2020-08-26 22:42] LABS: Partial Thromboplast Time 30.7 Seconds (24.1-36.2)
[2020-08-26 22:42] LABS: Amorphous Sediment 1+; Bacteria 2+ /hpf (None Seen)
[2020-08-26] MEDS: Ceftriaxone 1 GM/50 ML BAG IV (23:32)
--- NOTE | 2020-08-26 23:48 | HP.PCM.HOS_ITS ---
HPI - General General Date of Admission: 08/27/20 HPI Narrative INESSA SARAH, is a 70 F with a PMH as outlined who presents via the ED on 08/26/2020 with a complaint of altered mental status and general malaise. She had an associated fever, abdominal pain and fever. She had not been eating and drinking well. Symptoms started 1-2 days ago. She had fever of 102F in the ED. Review of systems was otherwise negative. Vitals showed BP of 157/96, [place] of 126, RR of 31 and she was saturating at 94% on room air. CBC showed wnc of 11.5 and Hb of 10.9 as well as platelets of 361. Chemistry showed sodium of 135 with Cr of 1.[address] of 25. CT of the abdomen done o/a of complaints of abdominal pain showed left hydrouerteronephrosis with wall thickening of hte urinary bladder but no stones seen. Urinalysis showed evidence of UTI. SH eis being admitted to be managed for sepsis due to UTI PFSH Medical History Cataract FH: total knee replacement Hydronephrosis Home Medications meloxicam 15 mg PO DAILY 01/22/15 [History Last Taken Unknown] aspirin 81 mg PO DAILY 08/26/20 [History Last Taken Unknown] ergocalciferol (vitamin D2) 50,000 unit PO QWEEK 08/26/20 [History Last Taken Unknown] sertraline 25 mg PO DAILY 08/26/20 [History Last Taken Unknown] Allergy/AdvReac Type Severity Reaction Status Date / Time latex Allergy PT UNABLE Verified 08/26/20 21:53 TO RESPOND-NEEDS F/U Surgical History S/P hip replacement Social History Smoking Status: Never smoker ROS Constitutional Constitutional: Reports anorexia, chills, fatigue, fever(s), malaise and weakness; Denies change in weight Eyes Eyes: Reports double vision ENT HEENT: Denies headache(s), nasal congestion or nasal discharge Cardiovascular Cardiovascular: Reports palpitations and rapid heart rate; Denies chest pain, edema, lightheadedness, orthopnea or paroxysmal nocturnal dyspnea Respiratory/Chest Respiratory/Chest: Denies cough, dyspnea, productive cough, shortness of breath at rest, shortness of breath with exertion or wheezing Gastrointestinal Gastrointestinal: Reports abdominal pain; Denies constipation, diarrhea, dyspepsia, nausea or vomiting Genitourinary Genitourinary: Reports burning urination and urinary frequency; Denies difficulty urinating, dysuria, hematuria or urinary incontinence Musculoskeletal Musculoskeletal: Denies arthralgias, back pain or joint swelling Neurologic Neurologic: Denies dizziness, focal weakness, seizures or syncope Psychiatric Psychiatric: Denies anxiety or depression Hematologic/Lymphatic Hematologic/Lymphatic: Denies anemia Vital Signs Vital Signs Vital Signs: 08/26/20 21:47 08/26/20 21:53 08/26/20 22:11 Temperature 102.3 F H 102.3 F H 102 F H Temperature Source Temporal Temporal Temporal Pulse Rate 129 H 129 H Respiratory Rate 30 H 30 H Blood Pressure 118/70 118/70 Blood Pressure Mean 86 86 Pulse Ox 94 94 99 Oxygen Delivery Method Room Air Room Air Room Air 08/26/20 22:17 Temperature Temperature Source Pulse Rate 126 H Respiratory Rate 31 H Blood Pressure 157/96 H Blood Pressure Mean 116 Pulse Ox 94 Oxygen Delivery Method Weight Weight: 182 lb 12.211 oz Body Mass Index (BMI) 33.4 Physical Exam Const alert and oriented x3 General Appearance: cooperative Orientation / Consciousness: lethargic HEENT normocephalic, head/scalp atraumatic and hearing grossly normal bilaterally HEENT Narrative: dry mucous membranes Eyes PERRL, EOMs intact bilaterally and conjunctivae normal Neck no lymphadenopathy, supple, no JVD and no carotid bruits Resp normal respiratory effort, no retractions, no use of accessory muscles and clear to auscultation bilaterally Resp Narrative: tachypneic Cardio regular rhythm, S1 normal heart sound, S2 normal heart sound and no murmurs Cardio Narrative: tachycardic GI normal to inspection, nondistended, normoactive bowel sounds, soft to palpation, non-tender and non-distended Extremity normal to inspection, full ROM and no clubbing, cyanosis or edema Peripheral Pulses: Yes pulses 2+ throughout Skin no rashes or lesions noted Neuro oriented x3 and moves all extremities Sensorium / Orientation: awake and alert Psych affect normal Results Lab / Micro Data Result Diagrams: 08/27/20 06:10 08/27/20 06:10 Labs: Laboratory Results - last 24 hr 08/26/20 21:50: WBC 11.5 H, RBC 4.03 L, Hgb 10.9 L, Hct 36.2 L, MCV 89.8, MCH 27.0, MCHC 30.1 L, RDW Std Deviation 57.2 H, RDW Coeff of Meka 17.5 H, Plt Count 361, MPV 9.0, Immature Gran % (Auto) 1.200 H, Neut % (Auto) 78.5 H, Lymph % (Auto) 10.6 L, [place] % (Auto) 8.9, Eos % (Auto) 0.2, Baso % (Auto) 0.6, Absolute Neuts (auto) 9.0 H, Absolute Lymphs (auto) 1.22, Nucleated RBC % 0 08/26/20 21:50: Sodium 135 L, Potassium 4.1, Chloride 100, Carbon Dioxide 25.0, Anion Gap 10, BUN 23 H, Creatinine 1.82 H, Estim Creat Clear Calc 23.40, Est GFR (MDRD) Af Amer 36 L, Est GFR (MDRD) Non-Af 29 L, BUN/Creatinine Ratio 12.6, G lucose 153 H, Calcium 8.6, Total Bilirubin 0.50, AST 21, ALT 18, Alkaline Phosphatase 97, Total Protein 8.2, Albumin 3.2, Globulin 5.0 H, Albumin/Globulin Ratio 0.6 L 08/26/20 21:50: Lactic Acid 1.4 08/26/20 22:05: Urine Color Yellow, Urine Clarity Turbid, Urine pH 6.0, Ur Specific [place] 1.010, Urine Protein 100 H, Urine Glucose (UA) Normal, Urine Ketones 5 H, Urine Occult Blood 250 H, Urine Nitrite Negative, Urine Bilirubin Negative, Urine Urobilinogen Normal, Ur Leukocyte Esterase 500 H, Urine RBC > 100 SEEN, Urine WBC >100 SEEN, Ur Squamous Epith Cells 0-5 SEEN, Amorphous Sediment 1+, Urine Bacteria 2+, Urine Mucus 0 SEEN 08/26/20 22:25: PT 15.0 H, INR 1.3, APTT 30.7 Micro: Microbiology 08/26/20 22:14 Mucosa - Nose SARS-CoV-2 Antigen (Rapid) - Final Radiology Impression Abdomen/Pelvis CT 08/26/20 22:07 IMPRESSION: Left hydroureteronephrosis. Wall thickening of the urinary bladder. No stones are seen. Colonic diverticulosis. No obstruction or abscess. Electronically Signed: Baudilio Travis MD at 23:20 EDT , Service support , Chest X-Ray 08/26/20 22:29 IMPRESSION: Degenerative changes, as described above. No demonstrated acute cardiopulmonary process. Electronically Signed: Baudilio Travis MD at 23:07 EDT , Service support , Assessment & Plan Assessment/Plan (1) Sepsis: (2) Acute UTI: (3) Acute kidney injury: PLAN: #Sepsis due to UTI * admit to PCU with telemetry * hydrate with IVF * started on IV ceftriaxone, will continue * get blood and urine cultures * tylenol for fever and pain * CT of the abdomen showed left hydroureteronephrosis, but was negative for stones * #UTI: as above #Left hydroureteronephrosis * etiology is unclear as there were no stones seen on imaging. * CT showed wall thickening of urinary bladder * get urology consult * #Hyperlipidemia: on statin #ELÍAS * CR is 1.82, with baseline of 0.84 * likely due to reduced intake and dehydration * hydrate gently with IVF; expect that it will improve with hydration * #DVT prophylaxis: lovenox, renally dosed Charges/Coding Visit Charges Inpatient E&M: 23269 Init Hosp L3
[2020-08-27] VITALS (41 sets, daily range): BP systolic 76–148; BP diastolic 39–98; PULSE 72–141; RESP 19–117; TEMP 36.3–41; O2SAT 3–129; BMI 34.0
[2020-08-27] MEDS: Acetaminophen 325 MG Tablet 650 MG PO ×4 (00:47→17:36)
[2020-08-27] MEDS: 0.9% Normal Saline 1,000 ML 150 ML IV ×3 (00:47→11:33)
[2020-08-27] MEDS: Metoprolol Tartrate 5 MG/5 ML Vial IV (02:06)
--- NOTE | 2020-08-27 05:54 | EKG12_ITS ---
Test Reason : TACHY Blood Pressure : / mmHG Vent. Rate : 118 BPM Atrial Rate : 118 BPM P-R Int : 152 ms QRS Dur : 086 ms QT Int : 302 ms P-R-T Axes : 078 051 039 degrees QTc Int : 423 ms Sinus tachycardia Otherwise normal ECG When compared with ECG of 26-AUG-2020 22:21, MANUAL COMPARISON REQUIRED, DATA IS UNCONFIRMED Confirmed by TREVON OLMEDO, CHRISTEN ([id number]), news assignment editor PIETER BROWN ([id number]) on 08/28/2020 9:34:01 AM Referred By: KARISSA Confirmed By:JACQUELIN LESTER MD
[2020-08-27] MEDS: 0.9% Normal Saline 1,000 ML 999 ML IV ×4 (05:58→10:28)
[2020-08-27 06:56] LABS: Absolute Lymphocyte Count 0.91 X10^3/uL (0.83-4.51); Absolute Neutrophil Count 12.5 X10^3/uL (2.0-7.7); Basophil# 0.05 X10^3/uL; Basophil% 0.3 % (0-1); Eosinophil# 0.02 X10^3/uL; Eosinophils% 0.1 % (0-5); Hematocrit 32.7 % (37-47); Hemoglobin 9.4 g/dL (12.0-15.0); Lymphocyte # 0.91 X10^3/ul (0.83-4.51); Lymphocyte % 6.2 % (19-41); Mean Corp Hgb Conc 28.7 g/dL (32-36); Mean Corpuscular Hgb 26.6 pg (27.0-32.0); Mean Corpuscular Volume 92.6 fL (81-99); Mean Platelet Vol. 9.3 fl (6.2-12.0); Monocyte# 1.04 X10^3/uL; Monocyte% 7.1 % (0-10); NRBC Flagged by Analyzer 0 % (0-5); Neutrophil # 12.53 X10^3/uL (2.7-7.7); Neutrophil % 85.2 % (47-70); POSITIVE MORPHOLOGY YES; Platelet Count 287 K/mm3 (150-450); RBC Distribution Width CV 17.9 % (11.6-14.6); RBC Distribution Width SD 60.4 fl (35.1-43.9); Red Blood Count 3.53 M/mm3 (4.2-5.4); White Blood Count 14.7 K/mm3 (4.4-11.0)
[2020-08-27 06:57] LABS: Differential Indicated SCAN CRITERIA MET
[2020-08-27 07:19] LABS: Anion Gap 10 (5-15); BUN 20 mg/dL (7-18); Chloride 106 mmol/L (98-107); Creatinine, Serum 1.54 mg/dL (0.55-1.02); EST Glomerular Filtration Rate 36 mL/min (>60); Est Glom Filt Rate - Afr Amer 43 mL/min (>60); Estimated Creatinine Clearance 26.38 ml/min; Glucose 110 mg/dL (74-106); Potassium 3.4 mmol/L (3.5-5.1); Sodium Level 137 mmol/L (136-145)
--- NOTE | 2020-08-27 09:41 | EX.PCM.CONCC ---
Assessment & Plan Assessment/Plan (1) Severe sepsis: PLAN: RECOMMENDATIONS: 1. Fluid resuscitation at 30 cc/kg as ordered. 2. Check lactate. 3. Continue empiric antimicrobials. 4. Initiate vasopressor support, if the patient remains hemodynamically unstable despite fluid resuscitation. 5. Continue appropriate DVT prophylaxis. 6. Potassium repletion as ordered. 7. Urology consultation placed. IMPRESSIONS: 1. Severe sepsis The patient initially presented to the hospital with concerns for potential urinary tract source of infection. She was febrile, tachycardic and tachypneic. However, the patient was initially hemodynamically stable. Overnight, the patient has decompensated from a hemodynamic perspective. Given that her systolic blood pressures are now less than 90 mmHg, she would technically be considered severe sepsis. Plan to aggressively fluid resuscitate with 30 cc/kg. Repeat lactate is pending. Cultures have already been obtained. Antimicrobials will be continued. If the patient remains in a state of fluid refractory hypotension, will initiate vasopressor support. Given that the patient had evidence of left hydroureteronephrosis on CT imaging, will obtain urology consultation. 2. Acute kidney injury Likely prerenal in etiology in the setting of #1. Continue aggressive volume resuscitation as noted above. We will continue to monitor urine output for now. No current indication for renal replacement therapy. 3. Hypokalemia Electrolyte repletion as ordered. Recheck levels in the morning. This note was generated with [employer] dictation software. It may contain incorrect words, spelling, and punctuation that were not noted in checking the note before signing. HPI Consult Data Date of Consult: 08/27/20 HPI Narrative Reason for Consultation: Severe sepsis HPI Narrative: The patient is a 70-year-old female, with a history as outlined below, who presented to the emergency department on August 26 due to generalized malaise, decreased p.o. intake, fever, dysuria and abdominal pain. On presentation to the emergency department, the patient was noted to be febrile with a temperature of 102.3 ?F. She was also tachycardic and tachypneic. The patient was initially hemodynamically stable. Initial laboratory evaluation revealed a white blood cell count of 11,000. Coagulation profile revealed an INR of 1.3. Chemistry profile was notable for a creatinine of 1.82. Lactate was normal at 1.4. Urinalysis was positive for leukocyte esterase and 2+ urine bacteria. CT abdomen/pelvis revealed left hydroureteronephrosis and wall thickening of the urinary bladder. No stones were seen. Chest x-ray demonstrated no acute cardiopulmonary process. The patient was placed on antimicrobials and admitted to the progressive care unit. Overnight, the patient has continued to decompensate from a clinical perspective with high-grade fevers, rigors and hemodynamic instability. This morning, the patient was noted to be hypotensive, for which IV fluids were ordered. Despite initial fluid resuscitation, the patient remained hypotensive and therefore required transfer to the medical intensive care unit. [facility] Medical History Cataract FH: total knee replacement Hydronephrosis Home Medications meloxicam 15 mg PO DAILY 01/22/15 [History Last Taken Unknown] aspirin 81 mg PO DAILY 08/26/20 [History Last Taken Unknown] ergocalciferol (vitamin D2) 50,000 unit PO QWEEK 08/26/20 [History Last Taken Unknown] sertraline 25 mg PO DAILY 08/26/20 [History Last Taken Unknown] Allergy/AdvReac Type Severity Reaction Status Date / Time latex Allergy PT UNABLE Verified 08/26/20 21:53 TO RESPOND-NEEDS F/U Surgical History S/P hip replacement Social History Smoking Status: Never smoker ROS Constitutional Constitutional: Reports chills, fatigue, fever(s) and malaise Eyes Eyes: Denies blurry vision or change in vision ENT HEENT: Denies dizziness or headache(s) Cardiovascular Cardiovascular: Denies chest pain, dizziness or dyspnea Respiratory/Chest Respiratory/Chest: Denies cough, dyspnea or hemoptysis Gastrointestinal Gastrointestinal: Reports abdominal pain; Denies diarrhea, nausea or vomiting Genitourinary Genitourinary: Reports dysuria Musculoskeletal Musculoskeletal: Denies arthralgias or back pain Integumentary Integumentary: Denies lesions, rash or skin ulcer Neurologic Neurologic: Denies abnormal gait or abnormal speech Psychiatric Psychiatric: Reports depression Endocrine Endocrinology: Reports fatigue Hematologic/Lymphatic Hematologic/Lymphatic: Denies easy bleeding or easy bruising Physical Exam Narrative Rigors present Const alert General Appearance: cooperative and ill appearing Positive for acutely HEENT normocephalic and head/scalp atraumatic Eyes PERRL, EOMs intact bilaterally and conjunctivae normal Neck supple General: trachea midline Resp no use of accessory muscles Effort and Inspection: tachypneic Auscultation: Negative for rales, rhonchi or wheezes Cardio S1 normal heart sound and S2 normal heart sound Rate: tachycardic GI normal to inspection, nondistended, normoactive bowel sounds Extremity no clubbing, cyanosis or edema Skin no rashes or lesions noted Neuro CN's II-XII intact bilaterally, moves all extremities and no focal motor deficits Psych cooperative and affect normal Lab / Micro Data Result Diagrams: 08/27/20 06:10 08/27/20 06:10 Labs: Laboratory Results - last 24 hr 08/26/20 21:50: WBC 11.5 H, RBC 4.03 L, Hgb 10.9 L, Hct 36.2 L, MCV 89.8, MCH 27.0, MCHC 30.1 L, RDW Std Deviation 57.2 H, RDW Coeff of [place]ek[place] 17.5 H, Plt Count 361, MPV 9.0, Immature Gran % (Auto) 1.200 H, Neut % (Auto) 78.5 H, Lymph % (Auto) 10.6 L, [place] % (Auto) 8.9, Eos % (Auto) 0.2, Baso % (Auto) 0.6, Absolute Neuts (auto) 9.0 H, Absolute Lymphs (auto) 1.22, Nucleated RBC % 0 08/26/20 21:50: Sodium 135 L, Potassium 4.1, Chloride 100, Carbon Dioxide 25.0, Anion Gap 10, BUN 23 H, Creatinine 1.82 H, Estim Creat Clear Calc 23.40, Est GFR (MDRD) Af Amer 36 L, Est GFR (MDRD) Non-Af 29 L, BUN/Creatinine Ratio 12.6, Glucose 153 H, Calcium 8.6, Total Bilirubin 0.50, AST 21, ALT 18, Alkaline Phosphatase 97, Total Protein 8.2, Albumin 3.2, Globulin 5.0 H, Albumin/Globulin Ratio 0.6 L 08/26/20 21:50: Lactic Acid 1.4 08/26/20 22:05: Urine Color Yellow, Urine Clarity Turbid, Urine pH 6.0, Ur Specific [place] 1.010, Urine Protein 100 H, Urine Glucose (UA) Normal, Urine Ketones 5 H, Urine Occult Blood 250 H, Urine Nitrite Negative, Urine Bilirubin Negative, Urine Urobilinogen Normal, Ur Leukocyte Esterase 500 H, Urine RBC > 100 SEEN, Urine WBC >100 SEEN, Ur Squamous Epith Cells 0-5 SEEN, Amorphous Sediment 1+, Urine Bacteria 2+, Urine Mucus 0 SEEN 08/26/20 22:25: PT 15.0 H, INR 1.3, APTT 30.7 08/27/20 06:10: WBC 14.7 H, RBC 3.53 L, Hgb 9.4 L, Hct 32.7 L, MCV 92.6, MCH 26.6 L, MCHC 28.7 L, RDW Std Deviation 60.4 H, RDW Coeff of [place] 17.9 H, Plt Count 287, MPV 9.3, Immature Gran % (Auto) 1.100 H, Neut % (Auto) 85.2 H, Lymph % (Auto) 6.2 L, [place] % (Auto) 7.1, Eos % (Auto) 0.1, Baso % (Auto) 0.3, Absolute Neuts (auto) 12.5 H, Absolute Lymphs (auto) 0.91, Nucleated RBC % 0 08/27/20 06:10: Sodium 137, Potassium 3.4 L, Chloride 106, Carbon Dioxide 21.0, Anion Gap 10, BUN 20 H, Creatinine 1.54 H, Estim Creat Clear Calc 26.38, Est GFR (MDRD) Af Amer 43 L, Est GFR (MDRD) Non-Af 36 L, BUN/Creatinine Ratio 13.0, Glucose 110 H, Calcium 8.0 L Micro: Microbiology 08/26/20 22:14 Mucosa - Nose SARS-CoV-2 Antigen (Rapid) - Final Rhythm Strip Rhythm Strip: Sinus Rhythm Rate: 131 Ectopy: None Radiology Impression Abdomen/Pelvis CT 08/26/20 22:07 IMPRESSION: Left hydroureteronephrosis. Wall thickening of the urinary bladder. No stones are seen. Colonic diverticulosis. No obstruction or abscess. Electronically Signed: Baudilio Travis MD at 23:20 EDT , Service support , Chest X-Ray 08/26/20 22:29 IMPRESSION: Degenerative changes, as described above. No demonstrated acute cardiopulmonary process. Electronically Signed: Baudilio Travis MD at 23:07 EDT , Service support , Charges/Coding Visit Charges Inpatient E&M: 12234 Init Hosp L3
[2020-08-27 10:46] LABS: Lactic Acid 1.9 mmol/L (0.4-1.9)
--- NOTE | 2020-08-27 11:20 | PCM.CONS.GEN ---
Assessment & Plan Assessment/Plan (1) Severe sepsis: (2) Acute UTI: (3) Hydronephrosis: PLAN: to surgery for cystoscopy and left ureteral stent insertion. Informed consent was obtained from the Surendra on the phone. HPI Consult Data Date of Consult: 08/27/20 HPI Narrative HPI Narrative: INESSA SARAH, is a 70 F who was admitted with urinary tract infection and transferred to the ICU overnight with severe sepsis. CT scan shows left hydroureteronephrosis. Patient is confused, no family at bedside. I spoke with nurse and . [facility] Medical History Cataract FH: total knee replacement Hydronephrosis Home Medications meloxicam 15 mg PO DAILY 01/22/15 [History Last Taken Unknown] aspirin 81 mg PO DAILY 08/26/20 [History Last Taken Unknown] ergocalciferol (vitamin D2) 50,000 unit PO QWEEK 08/26/20 [History Last Taken Unknown] sertraline 25 mg PO DAILY 08/26/20 [History Last Taken Unknown] Allergy/AdvReac Type Severity Reaction Status Date / Time latex Allergy PT UNABLE Verified 08/26/20 21:53 TO RESPOND-NEEDS F/U Surgical History S/P hip replacement Social History Smoking Status: Never smoker ROS Review of Systems ROS Unobtainable: due to mental status Physical Exam Narrative Patient is not alert, not able to have a conversation and is breathing heavily. HEENT normocephalic, head/scalp atraumatic, external ears normal and external nose normal Eyes conjunctivae normal and no scleral icterus Neck supple General: trachea midline Lymph Lymphatic: no lymphedema noted Chest inspection of chest normal Chest: symmetrical chest wall rise Resp Effort and Inspection: tachypneic and labored Cardio Rate: tachycardic GI soft to palpation and non-distended Bimanual Exam - Adnexa, Other: cystocele Extremity normal to inspection Skin no rashes or lesions noted, no wounds, no jaundice, no petechiae and no mottling Neuro Sensorium / Orientation: awake Lab / Micro Data Result Diagrams: 08/27/20 06:10 07/15/21 06:10 Labs: Laboratory Results - last 24 hr 08/26/20 21:50: WBC 11.5 H, RBC 4.03 L, Hgb 10.9 L, Hct 36.2 L, MCV 89.8, MCH 27.0, MCHC 30.1 L, RDW Std Deviation 57.2 H, RDW Coeff of [place]ek[place] 17.5 H, Plt Count 361, MPV 9.0, Immature Gran % (Auto) 1.200 H, Neut % (Auto) 78.5 H, Lymph % (Auto) 10.6 L, [place] % (Auto) 8.9, Eos % (Auto) 0.2, Baso % (Auto) 0.6, Absolute Neuts (auto) 9.0 H, Absolute Lymphs (auto) 1.22, Nucleated RBC % 0 08/26/20 21:50: Sodium 135 L, Potassium 4.1, Chloride 100, Carbon Dioxide 25.0, Anion Gap 10, BUN 23 H, Creatinine 1.82 H, Estim Creat Clear Calc 23.40, Est GFR (MDRD) Af Amer 36 L, Est GFR (MDRD) Non-Af 29 L, BUN/Creatinine Ratio 12.6, Glucose 153 H, Calcium 8.6, Total Bilirubin 0.50, AST 21, ALT 18, Alkaline Phosphatase 97, Total Protein 8.2, Albumin 3.2, Globulin 5.0 H, Albumin/Globulin Ratio 0.6 L 08/26/20 21:50: Lactic Acid 1.4 08/26/20 22:05: Urine Color Yellow, Urine Clarity Turbid, Urine pH 6.0, Ur Specific [place] 1.010, Urine Protein 100 H, Urine Glucose (UA) Normal, Urine Ketones 5 H, Urine Occult Blood 250 H, Urine Nitrite Negative, Urine Bilirubin Negative, Urine Urobilinogen Normal, Ur Leukocyte Esterase 500 H, Urine RBC > 100 SEEN, Urine WBC >100 SEEN, Ur Squamous Epith Cells 0-5 SEEN, Amorphous Sediment 1+, Urine Bacteria 2+, Urine Mucus 0 SEEN 08/26/20 22:25: PT 15.0 H, INR 1.3, APTT 30.7 08/27/20 06:10: WBC 14.7 H, RBC 3.53 L, Hgb 9.4 L, Hct 32.7 L, MCV 92.6, MCH 26.6 L, MCHC 28.7 L, RDW Std Deviation 60.4 H, RDW Coeff of [place]ek[place] 17.9 H, Plt Count 287, MPV 9.3, Immature Gran % (Auto) 1.100 H, Neut % (Auto) 85.2 H, Lymph % (Auto) 6.2 L, [place] % (Auto) 7.1, Eos % (Auto) 0.1, Baso % (Auto) 0.3, Absolute Neuts (auto) 12.5 H, Absolute Lymphs (auto) 0.91, Nucleated RBC % 0 08/27/20 06:10: Sodium 137, Potassium 3.4 L, Chloride 106, Carbon Dioxide 21.0, Anion Gap 10, BUN 20 H, Creatinine 1.54 H, Estim Creat Clear Calc 26.38, Est GFR (MDRD) Af Amer 43 L, Est GFR (MDRD) Non-Af 36 L, BUN/Creatinine Ratio 13.0, Glucose 110 H, Calcium 8.0 L 08/27/20 10:05: Lactic Acid 1.9 Micro: Microbiology 08/26/20 22:05 Urine, Catheterized Urine Culture - Preliminary GNR lactose product coordinator 08/26/20 22:14 Mucosa - Nose SARS-CoV-2 Antigen (Rapid) - Final Rhythm Strip Rhythm Strip: Sinus Rhythm Rate: 131 Ectopy: None Radiology Impression Abdomen/Pelvis CT 08/26/20 22:07 IMPRESSION: Left hydroureteronephrosis. Wall thickening of the urinary bladder. No stones are seen. Colonic diverticulosis. No obstruction or abscess. Electronically Signed: Baudilio Travis MD at 23:20 EDT , Service support , Chest X-Ray 08/26/20 22:29 IMPRESSION: Degenerative changes, as described above. No demonstrated acute cardiopulmonary process. Electronically Signed: Baudilio Travis MD at 23:07 EDT , Service support ,
--- NOTE | 2020-08-27 12:14 | PCM.OPRPT ---
Problems Associated Problem List Diagnoses (1) Hydronephrosis: (2) Severe sepsis: (3) Acute UTI: Report of Operation Date of Procedure: 08/27/20 Pre-Operative Diagnosis: left hydronephrosis, urinary tract infection, severe sepsis Post-Operative Diagnosis: same Surgery/Procedure Performed:: cystoscopy with left ureteral stent insertion Surgeon: Tiesha Gandhi Type of Anesthesia: MAC Description of Procedure: The patient is a 70-year-old female who was admitted last night for urinary tract infection, over the night she was transferred to the ICU with severe sepsis. I was consulted for left hydronephrosis. I have discussed with the family and we will be proceeding with cystoscopy and left ureteral stent insertion. The patient was brought to the operating room and placed on the operating room table. Anesthesia monitored the head, neck, airway, IV access and vital signs throughout the case. Once anesthesia was appropriately ministered, the patient was placed into dorsal lithotomy position and was prepped and draped in usual sterile fashion. The patient was identified as having significant cystocele. The cystoscope was inserted through the urethra under direct visualization into the urinary bladder. At first I was unable to identify the ureteral orifices secondary to the degree of prolapse. The prolapse was then reduced using 4 x 4 gauze. At this time I used a 70 degree lens in order to locate the ureteral orifices. Under fluoroscopic visualization, a 0.035 Glidewire was inserted through the left ureteral orifice with difficulty and apparent J hooking of the left ureter. Eventually access to the renal pelvis was able to be obtained. A 6 [place] 22 cm double-J stent was inserted over the wire, and even with repositioning a curl was unable to be placed in the proximal portion of the stent. It did curl within the urinary bladder. A Kaur catheter was then inserted to straight drain and 10 cc was placed in the balloon. The patient was then awakened and taken to the recovery room in good condition. There were no complications during this procedure. Grafts/Implants Used: 6x22 JJ stent Complications none Admit VTE Documentation VTE Present on Admission: Yes VTE Mechan Device Prophylaxis: SCD's VTE Pharm Prophylaxis ordered?: Yes
[2020-08-27] MEDS: Enoxaparin 30 MG/0.3 ML Syringe SC (17:35)
[2020-08-27] MEDS: Aspirin 81 MG TAB.CHEW PO (17:37)
--- NOTE | 2020-08-27 18:18 | PCM.PN.HOSP ---
Subjective Subjective Called this morning with hypotension. I had ordered a bolus of 30 cc/kg and it was just getting started. Patient states she is feeling very poorly. She has been having rigors and temperature elevations. She is had persistent tachycardia. She states she is been feeling poorly for approximately a week. She is never had anything like this before and does not get UTIs frequently. Objective Data Objective Data Vital Signs: Vital Signs Temp Pulse Resp BP Pulse Ox 100.9 F H 110 H 22 H 109/76 95 08/27/20 18:00 08/27/20 18:00 08/27/20 18:00 08/27/20 18:00 08/27/20 18:00 Oxygen Flow Rate (L/min) 4 Oxygen Delivery Method Nasal Cannula Weight: 81.8 kg Body Mass Index (BMI) 34.0 Intake & Output: Intake and Output for Last 24 Hours 08/25/20 08/26/20 08/27/20 23:59 23:59 23:59 Intake Total 1000 / 1000 4287.5 / 4287.5 Output Total 700 / 700 Balance 1000 / 1000 3587.5 / 3587.5 Lab / Micro Data Result Diagrams: 08/27/20 06:10 08/27/20 06:10 Labs: Laboratory Results - last 24 hr 08/26/20 21:50: WBC 11.5 H, RBC 4.03 L, Hgb 10.9 L, Hct 36.2 L, MCV 89.8, MCH 27.0, MCHC 30.1 L, RDW Std Deviation 57.2 H, RDW Coeff of Meka 17.5 H, Plt Count 361, MPV 9.0, Immature Gran % (Auto) 1.200 H, Neut % (Auto) 78.5 H, Lymph % (Auto) 10.6 L, [place] % (Auto) 8.9, Eos % (Auto) 0.2, Baso % (Auto) 0.6, Absolute Neuts (auto) 9.0 H, Absolute Lymphs (auto) 1.22, Nucleated RBC % 0 08/26/20 21:50: Sodium 135 L, Potassium 4.1, Chloride 100, Carbon Dioxide 25.0, Anion Gap 10, BUN 23 H, Creatinine 1.82 H, Estim Creat Clear Calc 23.40, Est GFR (MDRD) Af Amer 36 L, Est GFR (MDRD) Non-Af 29 L, BUN/Creatinine Ratio 12.6, Glucose 153 H, Calcium 8.6, Total Bilirubin 0.50, AST 21, ALT 18, Alkaline Phosphatase 97, Total Protein 8.2, Albumin 3.2, Globulin 5.0 H, Albumin/Globulin Ratio 0.6 L 08/26/20 21:50: Lactic Acid 1.4 08/26/20 22:05: Urine Color Yellow, Urine Clarity Turbid, Urine pH 6.0, Ur Specific [place] 1.010, Urine Protein 100 H, Urine Glucose (UA) Normal, Urine Ketones 5 H, Urine Occult Blood 250 H, Urine Nitrite Negative, Urine Bilirubin Negative, Urine Urobilinogen Normal, Ur Leukocyte Esterase 500 H, Urine RBC > 100 SEEN, Urine WBC >100 SEEN, Ur Squamous Epith Cells 0-5 SEEN, Amorphous Sediment 1+, Urine Bacteria 2+, Urine Mucus 0 SEEN 08/26/20 22:25: PT 15.0 H, INR 1.3, APTT 30.7 08/27/20 06:10: WBC 14.7 H, RBC 3.53 L, Hgb 9.4 L, Hct 32.7 L, MCV 92.6, MCH 26.6 L, MCHC 28.7 L, RDW Std Deviation 60.4 H, RDW Coeff of Mek[place] 17.9 H, Plt Count 287, MPV 9.3, Immature Gran % (Auto) 1.100 H, Neut % (Auto) 85.2 H, Lymph % (Auto) 6.2 L, [place] % (Auto) 7.1, Eos % (Auto) 0.1, Baso % (Auto) 0.3, Absolute Neuts (auto) 12.5 H, Absolute Lymphs (auto) 0.91, Nucleated RBC % 0 08/27/20 06:10: Sodium 137, Potassium 3.4 L, Chloride 106, Carbon Dioxide 21.0, Anion Gap 10, BUN 20 H, Creatinine 1.54 H, Estim Creat Clear Calc 26.38, Est GFR (MDRD) Af Amer 43 L, Est GFR (MDRD) Non-Af 36 L, BUN/Creatinine Ratio 13.0, Glucose 110 H, Calcium 8.0 L 08/27/20 10:05: Lactic Acid 1.9 Micro: Microbiology 08/26/20 21:50 Blood Culture (Wb) - Anticubital Left Blood Culture - Preliminary 08/26/20 22:05 Urine, Catheterized Urine Culture - Preliminary GNR lactose ophthalmic medical assistant 08/26/20 22:14 Mucosa - Nose SARS-CoV-2 Antigen (Rapid) - Final Radiography Diagnostic Testing: Radiology Impression Abdomen/Pelvis CT 08/26/20 22:07 IMPRESSION: Left hydroureteronephrosis. Wall thickening of the urinary bladder. No stones are seen. Colonic diverticulosis. No obstruction or abscess. Electronically Signed: Baudilio Travis MD at 23:20 EDT , Service support , Chest X-Ray 08/26/20 22:29 IMPRESSION: Degenerative changes, as described above. No demonstrated acute cardiopulmonary process. Electronically Signed: Baudilio Travis MD at 23:07 EDT , Service support , Rhythm Strip Rhythm Strip: Sinus Rhythm Rate: 131 Ectopy: None Assessment & Plan Assessment/Plan (1) Septic shock: (2) Hydronephrosis: (3) Acute UTI: (4) Acute kidney injury: PLAN: Septic shock secondary to UTI with hydronephrosis -Continue IV antibiotics -Blood cultures are pending -Patient was taken by urology to the OR for stent placement secondary to left [place] ureter nephrosis -Bolused with 30 cc/kg of body weight -Has thus far not required pressors although blood pressures remain soft -Suspect gram-negative sepsis -Appreciate critical care input Hydronephrosis -Stent placed today -Appreciate urology input Acute on chronic anemia-normocytic -Suspect related to sepsis -Likely will be further anemic tomorrow -Check iron studies -Baseline hemoglobin appears to be 11-12 ELÍAS -Baseline serum creatinine is 0.5 2.8 -Continue IV fluids -Suspect will be improved in the next 24 hours with fluid boluses and resolution of hypotension Hypokalemia -40 mEq p.o. potassium x1 dose -Repeat BMP in the a.m. Depression Continues Zoloft Obesity -Complicates treatment, prognosis, and outcomes -Recommend weight loss DVT prophylaxis Continue enoxaparin CODE STATUS -Full code Critical care time greater than 35 minutes excluding procedures Charges/Coding Multi Select Codes Hospitalists' Procedures Procedures: 78201 Critial Care 1st Hr
[2020-08-27] MEDS: Potassium Chloride Oral Tablet 20 MEQ 40 MEQ PO (20:08)
[2020-08-27] MEDS: 0.9% Saline Lock 10 ML Syringe IV (21:09)
[2020-08-28] VITALS (36 sets, daily range): BP systolic 92–156; BP diastolic 50–99; PULSE 92–148; RESP 12–36; TEMP 37–39.8; O2SAT 10–100
[2020-08-28] MEDS: Acetaminophen 325 MG Tablet 650 MG PO ×3 (00:03→22:10)
--- NOTE | 2020-08-28 00:15 | EKG12_ITS ---
Test Reason : EKG CHANGES Blood Pressure : / mmHG Vent. Rate : 137 BPM Atrial Rate : 137 BPM P-R Int : 124 ms QRS Dur : 084 ms QT Int : 278 ms P-R-T Axes : 064 058 -06 degrees QTc Int : [address] & T wave abnormality, consider inferior ischemia Abnormal ECG When compared with ECG of 27-AUG-2020 06:08, MANUAL COMPARISON REQUIRED, DATA IS UNCONFIRMED Confirmed by TREVON OLMEDO, CHRISTEN ([id number]), material expeditor PIETER BROWN ([id number]) on 08/31/2020 9:58:14 AM Referred By: LU Confirmed By:JACQUELIN LESTER MD
--- NOTE | 2020-08-28 00:29 | RAD_ITS ---
STUDY: X-RAY CHEST REASON FOR EXAM: Female, 70 years old. dyspnea/ SOB TECHNIQUE: Single AP portable view of the chest. COMPARISON: None. FINDINGS: The lungs are underexpanded with mild vascular crowding, cannot exclude mild vascular congestion. Minimal left basilar atelectasis. There is no demonstrated pleural abnormality. There is borderline cardiomegaly. Normal mediastinum and [place]. Normal visualized pulmonary arteries. Normal visualized aortic arch and descending thoracic aorta. There are diffuse degenerative changes of the visualized thoracic spine. There is degenerative osteoarthritis of the bilateral shoulders. There is no demonstrated abnormality of the visualized soft tissue structures of the upper abdomen. RAD/Chest 1 View (Portable) IMPRESSION: Decreased inspiratory effort with mild vascular crowding versus vascular congestion, clinical correlation recommended. Minimal left base atelectasis. Electronically Signed: Marsha Hein MD at 1:03 EDT , Service support ,
--- NOTE | 2020-08-28 00:31 | PCM.PN.BLA ---
Progress Note Called to bedside by Erin MATOS for concerns for patient sudden tachypnea and tachycardia. Pt is also noted to have increase work of breathing. Upon review patient received multiple fluid boluses as part of sepsis work up. Pt is currently 5400ml positive as a result of this. Physical Exam Const alert and oriented x3 HEENT normocephalic and head/scalp atraumatic Eyes conjunctivae normal and no scleral icterus Neck full ROM General: trachea midline Chest inspection of chest normal Resp Effort and Inspection: symmetric chest movement and tachypneic Auscultation: wheezes upper bilaterally and anterior Cardio S1 normal heart sound, S2 normal heart sound and peripheral pulses 2+ throughout Rate: tachycardic Rhythm: regular rhythm GI normal to inspection, nondistended, normoactive bowel sounds, soft to palpation and non-tender Extremity normal to inspection, full ROM, normal capillary refill and no clubbing, cyanosis or edema Skin no rashes or lesions noted, no wounds and skin turgor normal Neuro oriented x3, moves all extremities, no focal motor deficits and no sensory deficits noted Psych mental status grossly normal, thought process normal and cooperative Mood & Affect: anxious Assessment & Plan Assessment/Plan (1) Shortness of breath: PLAN: Findings discussed with Dr. Huggins including new onset wheezes, sudden onset tachycardia and tachypnea. CXR, EKG, Metoprolol IV, Lasix IV ordered. Suspicion for flash pulmonary edema discussed due to patient presentation and Fluid balance. Remained at bedside throughout testing. EKG showed sinus tach with nonspecific ST and T wave abnormality consistent with previous exam. Metoprolol effective, heart rate prior to administration 143, post administration 107. Chest x-ray obtained, shows decreased inspiratory effort with mild vascular crowding versus vascular congestion. Upon reevaluation, patient tachypnea improved, resting comfortably in bed.
[2020-08-28] MEDS: 0.9% Saline Lock 10 ML Syringe IV ×2 (00:35→22:11)
[2020-08-28] MEDS: LORazepam 2 MG/ML Syringe 0.5 MG IV (00:35)
[2020-08-28] MEDS: Metoprolol Tartrate 5 MG/5 ML Vial IV (00:38)
[2020-08-28] MEDS: Furosemide 40 MG/4 ML Vial IV ×2 (00:44→06:25)
--- NOTE | 2020-08-28 01:47 | NURSING ---
Patient packed with ice packs to right groin and left armpit. Cooling blanket turned on and set at 4 degrees celsius. Will continue to monitor.
[2020-08-28 03:35] LABS: Absolute Lymphocyte Count 0.93 X10^3/uL (0.83-4.51); Absolute Neutrophil Count 13.8 X10^3/uL (2.0-7.7); Basophil# 0.06 X10^3/uL; Basophil% 0.4 % (0-1); Differential Indicated SCAN CRITERIA MET; Eosinophil# 0.09 X10^3/uL; Eosinophils% 0.6 % (0-5); Hematocrit 30.4 % (37-47); Lymphocyte # 0.93 X10^3/ul (0.83-4.51); Lymphocyte % 5.8 % (19-41); Mean Corp Hgb Conc 29.6 g/dL (32-36); Mean Corpuscular Hgb 27.8 pg (27.0-32.0); Mean Corpuscular Volume 93.8 fL (81-99); Mean Platelet Vol. 9.7 fl (6.2-12.0); Monocyte# 0.69 X10^3/uL; Monocyte% 4.3 % (0-10); NRBC Flagged by Analyzer 0 % (0-5); Neutrophil # 13.75 X10^3/uL (2.7-7.7); Neutrophil % 85.3 % (47-70); POSITIVE MORPHOLOGY YES; Platelet Count 278 K/mm3 (150-450); RBC Distribution Width CV 18.3 % (11.6-14.6); RBC Distribution Width SD 63.2 fl (35.1-43.9); Red Blood Count 3.24 M/mm3 (4.2-5.4); White Blood Count 16.1 K/mm3 (4.4-11.0)
[2020-08-28 04:01] LABS: ALB/GLOB Ratio 0.5 RATIO (0.9-2.4); AST(SGOT) 82 U/L (15-37); Alanine Aminotransfer ALT/SGPT 20 U/L (13-56); Alkaline Phosphatase 69 U/L (45-117); Anion Gap 8 (5-15); BUN 18 mg/dL (7-18); BUN/Creat Ratio 13.8 RATIO (10-20); Calcium,Total 7.4 mg/dL (8.5-10.1); Chloride 112 mmol/L (98-107); EST Glomerular Filtration Rate 43 mL/min (>60); Est Glom Filt Rate - Afr Amer 52 mL/min (>60); Estimated Creatinine Clearance 31.25 ml/min; Glucose 80 mg/dL (74-106); Magnesium 1.9 mg/dL (1.6-2.6); Phosphorus 3.5 mg/dL (2.5-4.9); Potassium 3.7 mmol/L (3.5-5.1); Sodium Level 141 mmol/L (136-145)
[2020-08-28] MEDS: CHLORHEXIDINE GLUC 2% CLOTH 1 EACH TOWELETTE TOPICAL (05:22)
--- NOTE | 2020-08-28 05:45 | PCM.PN.INT ---
Assessment & Plan Assessment/Plan (1) Severe sepsis: PLAN: RECOMMENDATIONS: 1. Place patient on BiPAP for respiratory support. 2. Administer Atrovent aerosol. 3. Administer IV Lasix 40 mg x 1. 4. Discontinue Zosyn and start meropenem. 5. Check BNP and troponin. Obtain echocardiogram. 6. Continue appropriate DVT prophylaxis. IMPRESSIONS: 1. Gram-negative severe sepsis Appears to be secondary to gram-negative urinary tract source of infection with associated hydronephrosis with secondary hematogenous spread. The patient has been adequately volume resuscitated and remains hemodynamically stable. We will continue broad-spectrum antimicrobials. Given concerns for a possible reaction to Zosyn, the patient has been transitioned to meropenem this morning. She is status post cystoscopy and left ureteral stent placement on August 27. We will continue to provide supportive measures. 2. Acute kidney injury Improved. Likely prerenal in etiology in the setting of #1. Creatinine has improved with volume expansion. We will continue to monitor urine output for now. No current indication for renal replacement therapy. 3. Acute hypoxemic respiratory failure Possibly related to hypervolemia. The patient did have notable wheezing on today's examination. IV diuretics have been administered as well as bronchodilator therapy. The patient will be placed on BiPAP for respiratory support. Wean FiO2 to maintain saturations at or above 90%. Check BNP and troponin. Will obtain echocardiogram as well. TIME: 38 minutes of critical care time, independent of procedures, was spent addressing the patient's gram-negative severe sepsis, acute kidney injury, acute hypoxemic respiratory failure, review of all data and collaboration with the care team. ([id number]) Subjective Subjective The patient was seen and examined at the bedside this morning. Events from the last 24 hours have been reviewed. The patient is currently afebrile but did have a fever overnight with a T-max of 103.6 ?F. The patient is currently documented to be overall net +5.8 L for the hospital admission. The patient was taken to the OR yesterday where she underwent cystoscopy with left ureteral stent placement. White count remains elevated at 16,000. Creatinine has improved to 1.3. I was called to the bedside by nursing staff this morning at 0600 hrs. due to the patient being in respiratory distress. The patient was notably tachypneic with audible bilateral wheezes. She denied a history of bronchospastic airway disease. The patient did experience an episode similar to this overnight, for which she received IV Lasix. Chest x-ray obtained overnight did reveal some stigmata of pulmonary vascular congestion. The nursing staff did report that the patient developed these respiratory issues after her Zosyn was administered. Therefore, Zosyn was discontinued and the patient was ordered for meropenem. The patient will receive an additional dose of IV Lasix. Atrovent aerosol will be administered and the patient will be placed on BiPAP for respiratory support. Objective Data Objective Data The patient's most recent lab work, culture data and imaging studies have all been personally reviewed. Both urine and blood cultures were positive for gram-negative rods. Vital Signs: Vital Signs Temp Pulse Resp BP Pulse Ox 99.1 F 92 22 H 100/66 99 08/28/20 04:00 08/28/20 04:00 08/28/20 04:00 08/28/20 04:00 08/28/20 04:00 Oxygen Flow Rate (L/min) 2 Oxygen Delivery Method Nasal Cannula Weight: 85.1 kg Body Mass Index (BMI) 34.0 Intake & Output: Intake and Output for Last 24 Hours 08/26/20 08/27/20 08/28/20 23:59 23:59 23:59 Intake Total 1000 / 1000 6481.25 / 6481.25 50 / 50 Output Total 950 / 950 750 / 750 Balance 1000 / 1000 5531.25 / 5531.25 -700 / -700 Lab / Micro Data Attestation: I reviewed the patient's lab results. Result Diagrams: 08/28/20 03:15 08/28/20 03:15 Labs: Laboratory Results - last 24 hr 08/27/20 06:10: WBC 14.7 H, RBC 3.53 L, Hgb 9.4 L, Hct 32.7 L, MCV 92.6, MCH 26.6 L, MCHC 28.7 L, RDW Std Deviation 60.4 H, RDW Coeff of Meka 17.9 H, Plt Count 287, MPV 9.3, Immature Gran % (Auto) 1.100 H, Neut % (Auto) 85.2 H, Lymph % (Auto) 6.2 L, [place] % (Auto) 7.1, Eos % (Auto) 0.1, Baso % (Auto) 0.3, Absolute Neuts (auto) 12.5 H, Absolute Lymphs (auto) 0.91, Nucleated RBC % 0 08/27/20 06:10: Sodium 137, Potassium 3.4 L, Chloride 106, Carbon Dioxide 21.0, Anion Gap 10, BUN 20 H, Creatinine 1.54 H, Estim Creat Clear Calc 26.38, Est GFR (MDRD) Af Amer 43 L, Est GFR (MDRD) Non-Af 36 L, BUN/Creatinine Ratio 13.0, Glucose 110 H, Calcium 8.0 L 08/27/20 10:05: Lactic Acid 1.9 08/28/20 03:15: WBC 16.1 H, RBC 3.24 L, Hgb 9.0 L, Hct 30.4 L, MCV 93.8, MCH 27.8, MCHC 29.6 L, RDW Std Deviation 63.2 H, RDW Coeff of Meka 18.3 H, Plt Count 278, MPV 9.7, Immature Gran % (Auto) 3.600 H, Neut % (Auto) 85.3 H, Lymph % (Auto) 5.8 L, [place] % (Auto) 4.3, Eos % (Auto) 0.6, Baso % (Auto) 0.4, Absolute Neuts (auto) 13.8 H, Absolute Lymphs (auto) 0.93, Nucleated RBC % 0 08/28/20 03:15: Sodium 141, Potassium 3.7, Chloride 112 H, Carbon Dioxide 21.0, Anion Gap 8, BUN 18, Creatinine 1.30 H, Estim Creat Clear Calc 31.25, Est GFR (MDRD) Af Amer 52 L, Est GFR (MDRD) Non-Af 43 L, BUN/Creatinine Ratio 13.8, Glucose 80, Calcium 7.4 L, Phosphorus 3.5, Magnesium 1.9, Total Bilirubin 0.30, AST 82 H, ALT 20, Alkaline Phosphatase 69, Total Protein 6.0 L, Albumin 2.0 L, Globulin 4.0, Albumin/Globulin Ratio 0.5 L Micro: Microbiology 08/26/20 21:50 Blood Culture (Wb) - Anticubital Left Blood Culture - Preliminary 08/26/20 22:05 Urine, Catheterized Urine Culture - Preliminary GNR lactose respite provider 08/26/20 22:14 Mucosa - Nose SARS-CoV-2 Antigen (Rapid) - Final Radiography Diagnostic Testing: Radiology Impression Chest X-Ray 08/28/20 00:29 IMPRESSION: Decreased inspiratory effort with mild vascular crowding versus vascular congestion, clinical correlation recommended. Minimal left base atelectasis. Electronically Signed: Marsha Hein MD at 1:03 EDT , Service support , Rhythm Strip Rhythm Strip: Sinus Rhythm Rate: 131 Ectopy: None Physical Exam Const alert General Appearance: cooperative, in distress and ill appearing Positive for acutely HEENT normocephalic, head/scalp atraumatic and moist oral mucous membranes Eyes PERRL and EOMs intact bilaterally Neck supple General: trachea midline Resp Effort and Inspection: tachypneic and labored Auscultation: wheezes scattered wheezes Cardio S1 normal heart sound and S2 normal heart sound Rate: tachycardic GI normal to inspection, nondistended, normoactive bowel sounds Extremity no clubbing, cyanosis or edema Skin no rashes or lesions noted Neuro CN's II-XII intact bilaterally, moves all extremities and no focal motor deficits Psych cooperative and affect normal Charges/Coding Procedures Hospitalists Procedures: 42297 Critial Care 1st Hr
[2020-08-28] MEDS: Ipratropium 0.5 MG/2.5 ML SOLUTION INHALATION ×4 (06:09→22:30)
--- NOTE | 2020-08-28 06:25 | ECHOCS_ITS ---
Reason For Study: Dyspnea/SOB Procedure This was a 2D Doppler, Color Flow transthoracic echocardiogram. Technically difficult study due to patients body habitus and BIPAP. Contrast injection was performed. Exam performed portable in ICU/CCU. Left Ventricle Normal LV size. The estimated ejection fraction is 55 %. No evidence for diastolic dysfunction. No regional wall motion abnormalities noted. Right Ventricle Normal RV size. Normal systolic function. Atria Normal left atrium. Normal right atrium. No doppler evidence for ASD. Mitral Valve There is no mitral valve stenosis. No mitral valve insufficiency. Tricuspid Valve There is no tricuspid stenosis. Unable to estimate RV systolic pressure due to inadequate jet, pulmonary artery pressure probably normal. Aortic Valve Trisinus/trileaflet aortic valve. There is no aortic stenosis. No aortic valve insufficiency. Pulmonic Valve There is no pulmonic valvular stenosis. No pulmonic valve insufficiency. Great Vessels Normal aortic root. Pericardium/Pleural No pericardial effusion. Medication Diluted definity 7ml given slow IV push to enhance endocardial definition. MMode/2D Measurements & Calculations LVIDd: 4.1 cm IVSd: 0.83 cm Ao root diam: 3.2 cm LVIDs: 2.9 cm LVPWd: 0.97 cm LA dimension: 3.1 cm FS: 29.8 % LAV(MOD-bp): 31.5 ml LA A4 area: 16.0 cm2 RA A4 area: 13.1 cm2 LAV(MOD-bp) Indexed: 17.2 ml/m2 LAV(MOD-sp2): 22.0 ml LAV(MOD-sp4): 38.2 ml Time Measurements MV dec time: 0.21 sec Doppler Measurements & Calculations MV E max daniel: 59.5 cm/sec Lat Peak E' Daniel: 8.5 cm/sec Med Peak E' Daniel: 6.8 cm/sec MV A max daniel: 73.0 cm/sec E/E' lat: 7.0 E/E' med: 8.8 MV E/A: 0.81 MV V2 max: 79.6 cm/sec MV P1/2t max daniel: 75.3 cm/sec Ao V2 max: 122.0 cm/sec MV max P.5 mmHg MV P1/2t: 52.6 msec Ao max P.0 mmHg MV V2 mean: 53.1 cm/sec MV dec slope: 419.0 cm/sec2 MV mean P.3 mmHg MV V2 VTI: 14.3 cm MVA(P1/2t): 4.2 cm2 LV V1 max: 94.4 cm/sec PA V2 max: 97.3 cm/sec LV V1 max P.6 mmHg ECHO/Echo Complete W/ Contrast Interpretation Summary The estimated ejection fraction is 55 %. No evidence for diastolic dysfunction. Ordering Physician: Martin Sanchez Referring Physician: MD Javier Gary Performed By: Denevr Javed RCS
[2020-08-28 06:35] LABS: Troponin-I HS 79.7 pg/mL (3.0-53.7)
[2020-08-28 08:00] LABS: BNP,B-Type NATRIURETIC PEPTIDE 199.2 pg/mL (0-100)
--- NOTE | 2020-08-28 10:36 | PN.URO_ITS ---
Subjective Subjective The patient is responsive and awake in bed, resting with BiPAP on. Her breathing appears to be improved since I saw her yesterday. When asked if she is doing okay she gave me the thumbs up sign. Objective Data Objective Data Vital Signs: Vital Signs Temp Pulse Resp BP Pulse Ox 98.6 F 114 H 26 H 115/74 100 08/28/20 09:00 08/28/20 10:20 08/28/20 10:20 08/28/20 09:00 08/28/20 10:20 Oxygen Flow Rate (L/min) 2 Oxygen Delivery Method Bi-pap Weight: 85.1 kg Body Mass Index (BMI) 34.0 Intake & Output: Intake and Output for Last 24 Hours 08/26/20 08/27/20 08/28/20 23:59 23:59 23:59 Intake Total 1000 / 1000 6481.25 / 6481.25 317.13 / 317.13 Output Total 950 / 950 750 / 750 Balance 1000 / 1000 5531.25 / 5531.25 -432.87 / -432.87 Lab / Micro Data Result Diagrams: 08/28/20 03:15 08/28/20 03:15 Labs: Laboratory Results - last 24 hr 08/27/20 10:05: Lactic Acid 1.9 08/28/20 03:15: WBC 16.1 H, RBC 3.24 L, Hgb 9.0 L, Hct 30.4 L, MCV 93.8, MCH 27.8, MCHC 29.6 L, RDW Std Deviation 63.2 H, RDW Coeff of Meka 18.3 H, Plt Count 278, MPV 9.7, Immature Gran % (Auto) 3.600 H, Neut % (Auto) 85.3 H, Lymph % (Auto) 5.8 L, [place] % (Auto) 4.3, Eos % (Auto) 0.6, Baso % (Auto) 0.4, Absolute Neuts (auto) 13.8 H, Absolute Lymphs (auto) 0.93, Nucleated RBC % 0 08/28/20 03:15: Sodium 141, Potassium 3.7, Chloride 112 H, Carbon Dioxide 21.0, Anion Gap 8, BUN 18, Creatinine 1.30 H, Estim Creat Clear Calc 31.25, Est GFR (MDRD) Af Amer 52 L, Est GFR (MDRD) Non-Af 43 L, BUN/Creatinine Ratio 13.8, Glucose 80, Calcium 7.4 L, Phosphorus 3.5, Magnesium 1.9, Total Bilirubin 0.30, AST 82 H, ALT 20, Alkaline Phosphatase 69, Total Protein 6.0 L, Albumin 2.0 L, Globulin 4.0, Albumin/Globulin Ratio 0.5 L 08/28/20 03:15: Troponin I High Sens 79.7 H* 08/28/20 03:15: B-Natriuretic Peptide 199.2 H Micro: Microbiology 08/26/20 22:05 Urine, Catheterized Urine Culture - Final Klebsiella pneumoniae sp pneum 08/26/20 21:50 Blood Culture (Wb) - Anticubital Left Blood Culture - Preliminary GNR lactose engagement director 08/26/20 22:14 Mucosa - Nose SARS-CoV-2 Antigen (Rapid) - Final Radiography Diagnostic Testing: Radiology Impression Chest X-Ray 08/28/20 00:29 IMPRESSION: Decreased inspiratory effort with mild vascular crowding versus vascular congestion, clinical correlation recommended. Minimal left base atelectasis. Electronically Signed: Marsha Hein MD at 1:03 EDT , Service support , Rhythm Strip Rhythm Strip: Sinus Rhythm Rate: 131 Ectopy: None Physical Exam Const alert HEENT normocephalic and head/scalp atraumatic Neck supple General: trachea midline Chest Chest: symmetrical chest wall rise GI soft to palpation Narrative: Urine clear yellow in Kaur catheter Skin no rashes or lesions noted, skin turgor normal, no jaundice, no petechiae and no mottling Assessment & Plan Assessment/Plan (1) Hydronephrosis: QUALIFIERS: Hydronephrosis type: unspecified Qualified Code(s): N13.30 - Unspecified hydronephrosis PLAN: Continue ureteral stent and Kaur catheter drainage Continue ICU and supportive care (2) Acute UTI: (3) Sepsis: (4) Cystocele, midline:
[2020-08-28] MEDS: Sertraline 50 MG Tablet 25 MG PO (10:55)
[2020-08-28] MEDS: Aspirin 81 MG TAB.CHEW PO (10:57)
[2020-08-28] MEDS: Enoxaparin 40 MG/0.4 ML Syringe SC (10:58)
--- NOTE | 2020-08-28 13:50 | CASEMGMT ---
SHAWNA MOBLEY Face to Face with patient for initial transition planning/care coordination assessment. RN LEANDRA introduced self and role at [facility]. Patient sitting in chair, alert and oriented. Patient willing to participate in assessment and is able to answer all questions appropriately. Care providers, pharmacy, and demographics verified. Patient wishes to discharge home, will monitor for need for HHC pending progress with therapy. Patient states she has no further needs or concerns at this time. CM to follow for discharge planning needs that may arise. PCP: Javier Specialists: [facility] [place] Preferred Pharmacy: [facility] Insurance: RONDA Edwards only Prescription Benefit: yes Living Will/HPOA: yes, Surendra Campos LNOK: Living Arrangements: Patient lives with in a 2 story house with access for bed and bath on first floor. Patient states she is independent and normally able to ambulate stairs. Transportation: self/ DME/HHC: Patient states she has shower chair, cane, walker at home. No previous HHC or SNF. Patient states she has no preference for DME and would like [employer] if needed. Disposition Plan: Patient to discharge home with family support and follow-up plans in place. Will monitor for need for home oxygen and HHC. Rubina LEO, RN, CM
--- NOTE | 2020-08-28 15:16 | PN.HOSP_ITS ---
Subjective Subjective Patient with some respiratory distress this morning. Placed on noninvasive ventilation in the form of BiPAP and given Lasix. Oxygenation is improving and now has been weaned to 2 L nasal cannula. Feeling better overall. Objective Data Objective Data Vital Signs: Vital Signs Temp Pulse Resp BP Pulse Ox 99.9 F H 107 H 22 H 105/65 97 08/28/20 12:00 08/28/20 13:25 08/28/20 13:25 08/28/20 12:00 08/28/20 13:25 Oxygen Flow Rate (L/min) 2 Oxygen Delivery Method Nasal Cannula Weight: 85.1 kg Body Mass Index (BMI) 34.0 Intake & Output: Intake and Output for Last 24 Hours 08/26/20 08/27/20 08/28/20 23:59 23:59 23:59 Intake Total 1000 / 1000 6481.25 / 6481.25 317.13 / 317.13 Output Total 950 / 950 2550 / 2550 Balance 1000 / 1000 5531.25 / 5531.25 -2232.87 / -2232.87 Lab / Micro Data Result Diagrams: 08/28/20 03:15 08/28/20 03:15 Labs: Laboratory Results - last 24 hr 08/28/20 03:15: WBC 16.1 H, RBC 3.24 L, Hgb 9.0 L, Hct 30.4 L, MCV 93.8, MCH 27.8, MCHC 29.6 L, RDW Std Deviation 63.2 H, RDW Coeff of Meka 18.3 H, Plt Count 278, MPV 9.7, Immature Gran % (Auto) 3.600 H, Neut % (Auto) 85.3 H, Lymph % (Auto) 5.8 L, [place] % (Auto) 4.3, Eos % (Auto) 0.6, Baso % (Auto) 0.4, Absolute Neuts (auto) 13.8 H, Absolute Lymphs (auto) 0.93, Nucleated RBC % 0 08/28/20 03:15: Sodium 141, Potassium 3.7, Chloride 112 H, Carbon Dioxide 21.0, Anion Gap 8, BUN 18, Creatinine 1.30 H, Estim Creat Clear Calc 31.25, Est GFR (MDRD) Af Amer 52 L, Est GFR (MDRD) Non-Af 43 L, BUN/Creatinine Ratio 13.8, Glucose 80, Calcium 7.4 L, Phosphorus 3.5, Magnesium 1.9, Total Bilirubin 0.30, AST 82 H, ALT 20, Alkaline Phosphatase 69, Total Protein 6.0 L, Albumin 2.0 L, Globulin 4.0, Albumin/Globulin Ratio 0.5 L 08/28/20 03:15: Troponin I High Sens 79.7 H* 08/28/20 03:15: B-Natriuretic Peptide 199.2 H Micro: Microbiology 08/26/20 22:05 Urine, Catheterized Urine Culture - Final Klebsiella pneumoniae sp pneum 08/26/20 21:50 Blood Culture (Wb) - Anticubital Left Blood Culture - Preliminary GNR lactose flight inspector 08/26/20 22:14 Mucosa - Nose SARS-CoV-2 Antigen (Rapid) - Final Radiography Diagnostic Testing: Radiology Impression Chest X-Ray 08/28/20 00:29 IMPRESSION: Decreased inspiratory effort with mild vascular crowding versus vascular congestion, clinical correlation recommended. Minimal left base atelectasis. Electronically Signed: Marsha Hein MD at 1:03 EDT , Service support , Rhythm Strip Rhythm Strip: Sinus Rhythm Rate: 131 Ectopy: None Physical Exam Const alert and oriented x3 Constitutional Narrative: Obese upper middle-aged white female lying in bed on noninvasive ventilation, appears fatigued but comfortable, no rigors, warm to touch been nursing at bedside, temp noted to be 102 at this time General Appearance: cooperative Orientation / Consciousness: lethargic HEENT normocephalic, head/scalp atraumatic and hearing grossly normal bilaterally Head and Scalp: normocephalic Mouth: dry mucous membranes Eyes PERRL, EOMs intact bilaterally, conjunctivae normal and no scleral icterus Neck full ROM, no lymphadenopathy, supple and no carotid bruits Neck Narrative: Mild JVD General: trachea midline Chest inspection of chest normal Resp normal respiratory effort, no retractions, no use of accessory muscles and clear to auscultation bilaterally Resp Narrative: tachypneic Effort and Inspection: symmetric chest movement and tachypneic Auscultation: wheezes upper bilaterally and anterior Cardio regular rhythm, S1 normal heart sound, S2 normal heart sound, no murmurs, no rub, no gallops, no clicks and peripheral pulses 2+ throughout Cardio Narrative: tachycardic mild but much improved Rate: tachycardic Rhythm: regular rhythm GI normal to inspection, nondistended, normoactive bowel sounds, soft to palpation, non-tender and non-distended Extremity normal to inspection, full ROM, normal capillary refill and no clubbing, cyanosis or edema Peripheral Pulses: Yes pulses 2+ throughout Skin no rashes or lesions noted, no wounds and skin turgor normal Neuro oriented x3, moves all extremities, no focal motor deficits and no sensory deficits noted Neuro Narrative: Sleepy but awakens easily Psych mental status grossly normal, thought process normal and cooperative Assessment & Plan Assessment/Plan (1) Hydronephrosis: QUALIFIERS: Hydronephrosis type: unspecified Qualified Code(s): N13.30 - Unspecified hydronephrosis (2) Severe sepsis: (3) Acute respiratory failure with hypoxia: PLAN: Severe sepsis secondary to Klebsiella UTI with hydronephrosis -Continue IV antibiotics -Blood cultures remain pending -Urine culture with Klebsiella -Continue meropenem for now but if blood cultures negative for any other orga nisms will switch to ceftriaxone with probable discharge on ciprofloxacin -Patient never required pressors and we were able to stabilize her blood pressure with fluid resuscitation -Stent placed by urology on 08/27/2020 -Appreciate critical care input Acute hypoxic respiratory failure -Pulmonary edema secondary to hypervolemia versus reaction to Zosyn -Antibiotics changed -IV Lasix given -Patient was requiring BiPAP at 35% FiO2 but now has been weaned to 2 L nasal cannula -Echocardiogram pending -BNP is not markedly elevated -Chest x-ray done last night showed vascular congestion Troponin elevation -Mild elevation -Suspect stress-induced ischemia related to sepsis and hypotension -Echo pending Hydronephrosis -Stent placed 08/27/2020 -Appreciate urology input--> note from today reviewed Acute on chronic anemia-normocytic -Suspect related to sepsis -Hemoglobin is relatively stable -Check iron studies -Baseline hemoglobin appears to be 11-12 ELÍAS -Baseline serum creatinine 0.5-1 -Resolving -Discontinued IV fluids last evening with respiratory distress Hypokalemia - resolved we will continue to trend Depression -Continue Zoloft Obesity -Complicates treatment, prognosis, and outcomes -Recommend weight loss DVT prophylaxis Continue enoxaparin CODE STATUS -Full code Charges/Coding Visit Charges Inpatient E&M: 13592 Subs Hosp L2
--- NOTE | 2020-08-28 21:08 | NURSING ---
Kaur management detail: previous charting performed under wrong type of F/C(coretemp), charting amended to plain F/C w/insertion date of cystoscopy procedure.
[2020-08-29] VITALS (16 sets, daily range): BP systolic 83–140; BP diastolic 49–81; PULSE 84–106; RESP 18–29; TEMP 36.4–37.8; O2SAT 95–100
[2020-08-29 04:33] LABS: Absolute Lymphocyte Count 0.78 X10^3/uL (0.83-4.51); Basophil# 0.04 X10^3/uL; Basophil% 0.3 % (0-1); Eosinophil# 0.17 X10^3/uL; Eosinophils% 1.3 % (0-5); Hematocrit 28.8 % (37-47); Hemoglobin 8.8 g/dL (12.0-15.0); Lymphocyte # 0.78 X10^3/ul (0.83-4.51); Lymphocyte % 5.9 % (19-41); Mean Corp Hgb Conc 30.6 g/dL (32-36); Mean Corpuscular Hgb 27.3 pg (27.0-32.0); Mean Corpuscular Volume 89.4 fL (81-99); Mean Platelet Vol. 9.5 fl (6.2-12.0); NRBC Flagged by Analyzer 0 % (0-5); Neutrophil # 10.97 X10^3/uL (2.7-7.7); Neutrophil % 82.7 % (47-70); POSITIVE MORPHOLOGY YES; Platelet Count 273 K/mm3 (150-450); RBC Distribution Width CV 18.3 % (11.6-14.6); RBC Distribution Width SD 60.3 fl (35.1-43.9); RET-HE 22.4 pg (30-35); Red Blood Count 3.22 M/mm3 (4.2-5.4); Reticulocyte Count 0.54 % (0.5-1.5); White Blood Count 13.3 K/mm3 (4.4-11.0)
[2020-08-29] MEDS: Acetaminophen 325 MG Tablet 650 MG PO ×3 (04:34→17:53)
[2020-08-29] MEDS: 0.9% Saline Lock 10 ML Syringe IV (04:34)
[2020-08-29 04:49] LABS: Differential Indicated SCAN CRITERIA MET
[2020-08-29 04:55] LABS: Anion Gap 7 (5-15); BUN 25 mg/dL (7-18); BUN/Creat Ratio 19.7 RATIO (10-20); Calcium,Total 8.2 mg/dL (8.5-10.1); Chloride 109 mmol/L (98-107); Creatinine, Serum 1.27 mg/dL (0.55-1.02); EST Glomerular Filtration Rate 44 mL/min (>60); Est Glom Filt Rate - Afr Amer 54 mL/min (>60); Estimated Creatinine Clearance 31.99 ml/min; Ferritin 348 ng/mL (8-252); Glucose 97 mg/dL (74-106); Iron 15 ug/dL (50-170); Iron Binding Capacity,Total 178 ug/dL (250-450); PERCENT IRON SATURATION 8.4 % (15.0-55.0); Potassium 3.3 mmol/L (3.5-5.1); Sodium Level 139 mmol/L (136-145)
--- NOTE | 2020-08-29 05:27 | PN.CC_ITS ---
Assessment & Plan Assessment/Plan (1) Severe sepsis: PLAN: RECOMMENDATIONS: 1. Wean supplemental oxygen to maintain saturations at or above 90%. 2. Continue as needed bronchodilator therapy. 3. Continue antimicrobials as ordered. 4. Potassium repletion. 5. Encourage incentive spirometer use and mobilize patient as tolerated. 6. Continue appropriate DVT prophylaxis. IMPRESSIONS: 1. Gram-negative severe sepsis Appears to be secondary to gram-negative urinary tract source of infection with associated hydronephrosis with secondary hematogenous spread. The patient has been adequately volume resuscitated and remains hemodynamically stable. We will continue broad-spectrum antimicrobials. Given concerns for a possible reaction to Zosyn, the patient was transitioned to meropenem. She is status post cystoscopy and left ureteral stent placement on August 27. We will continue to provide supportive measures. 2. Acute kidney injury Improved. Likely prerenal in etiology in the setting of #1. Creatinine has improved with volume expansion. We will continue to monitor urine output for now. No current indication for renal replacement therapy. 3. Hypokalemia Electrolyte repletion as ordered. Recheck levels in the morning. 4. Acute hypoxemic respiratory failure Improved. Likely related to hypervolemia. The patient did respond to the lucio sient use of BiPAP along with IV diuretic therapy and as needed bronchodilators. Continue to wean supplemental oxygen as tolerated. Encourage incentive spirometer use and mobilize patient as tolerated. This note was generated with [employer] dictation software. It may contain incorrect words, spelling, and punctuation that were not noted in checking the note before signing. Subjective Subjective The patient was seen and examined at the bedside this morning. Events from the last 24 hours have been reviewed. The patient has had some low-grade fevers overnight but remains hemodynamically stable on 2 L/min via nasal cannula. The patient is currently documented to be overall net +4.3 L for the hospital ad mission. Potassium is low this morning at 3.3. Creatinine remains stable. No issues overnight were identified by the nursing staff. Objective Data Objective Data The patient's most recent lab work, culture data and imaging studies have all been personally reviewed. Surface echocardiogram revealed normal LV size with an ejection fraction of 55%. Both urine and blood cultures were positive for gram-negative rods. Vital Signs: Vital Signs Temp Pulse Resp BP Pulse Ox 100.1 F H 106 H 25 H 101/64 99 07/17/21 04:00 08/29/20 05:00 08/29/20 05:00 08/29/20 05:00 08/29/20 05:00 Oxygen Flow Rate (L/min) 2 Oxygen Delivery Method Nasal Cannula Weight: 85.1 kg Body Mass Index (BMI) 34.0 Intake & Output: Intake and Output for Last 24 Hours 08/27/20 08/28/20 08/29/20 23:59 23:59 23:59 Intake Total 6481.25 / 6481.25 808.63 / 928.63 240 / 240 Output Total 950 / 950 3000 / 3250 250 / 250 Balance 5531.25 / 5531.25 -2191.37 / -2321.37 -10 / -10 Lab / Micro Data Attestation: I reviewed the patient's lab results. Result Diagrams: 08/29/20 04:30 08/29/20 04:30 Labs: Laboratory Results - last 24 hr 08/28/20 03:15: Troponin I High Sens 79.7 H* 08/28/20 03:15: B-Natriuretic Peptide 199.2 H 08/29/20 04:30: WBC 13.3 H, RBC 3.22 L, Hgb 8.8 L, Hct 28.8 L, MCV 89.4, MCH 27.3, MCHC 30.6 L, RDW Std Deviation 60.3 H, RDW Coeff of Meka 18.3 H, Plt Count 273, MPV 9.5, Immature Gran % (Auto) 3.800 H, Neut % (Auto) 82.7 H, Lymph % (Auto) 5.9 L, [place] % (Auto) 6.0, Eos % (Auto) 1.3, Baso % (Auto) 0.3, Absolute Neuts (auto) 11.0 H, Absolute Lymphs (auto) 0.78 L, Nucleated RBC % 0, Retic Count 0.54, Immature Retic Fraction 14.10, Retic Hgb Equivalent 22.4 L 08/29/20 04:30: Sodium 139, Potassium 3.3 L, Chloride 109 H, Carbon Dioxide 23.0, Anion Gap 7, BUN 25 H, Creatinine 1.27 H, Estim Creat Clear Calc 31.99, Est GFR (MDRD) Af Amer 54 L, Est GFR (MDRD) Non-Af 44 L, BUN/Creatinine Ratio 19.7, Glucose 97, Calcium 8.2 L, Iron 15 L, TIBC 178 L, Iron Saturation 8.4 L, Ferritin 348 H Micro: Microbiology 08/26/20 22:05 Urine, Catheterized Urine Culture - Final Klebsiella pneumoniae sp pneum 08/26/20 21:50 Blood Culture (Wb) - Anticubital Left Blood Culture - Preliminary 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 No evidence for diastolic dysfunction. Ordering Physician: Martin Sanchez Referring Physician: MD Javier Gary Performed By: Denver Javed RCS Rhythm Strip Rhythm Strip: Sinus Rhythm Rate: 131 Ectopy: None Physical Exam Const alert and no apparent distress General Appearance: cooperative Nutritional Appearance: obese HEENT normocephalic, head/scalp atraumatic and moist oral mucous membranes Eyes PERRL and EOMs intact bilaterally Neck supple General: trachea midline Resp normal respiratory effort Effort and Inspection: tachypneic Auscultation: Negative for rales, rhonchi or wheezes Cardio S1 normal heart sound and S2 normal heart sound Rate: tachycardic GI normal to inspection, nondistended, normoactive bowel sounds Extremity no clubbing, cyanosis or edema Skin no rashes or lesions noted Neuro CN's II-XII intact bilaterally, moves all extremities and no focal motor deficits Psych cooperative and affect normal Charges/Coding Visit Charges Inpatient E&M: 76085 Subs Hosp L3
[2020-08-29] MEDS: Aspirin 81 MG TAB.CHEW PO (07:33)
[2020-08-29] MEDS: Potassium Chloride 10mEq/100mL 10 MEQ/100 ML IV.SOLN. 100 MEQ IV BOLUS (07:33)
--- NOTE | 2020-08-29 08:41 | PN_ITS ---
Subjective Subjective Henrietta is awake, alert and able to speak. She is doing well and much improved. She is being transferred to the PCU today. Objective Data Objective Data Vital Signs: Vital Signs Temp Pulse Resp BP Pulse Ox 99.8 F H 96 26 H 116/70 97 08/29/20 08:00 08/29/20 08:00 08/29/20 08:00 08/29/20 08:00 08/29/20 08:00 Oxygen Flow Rate (L/min) 2 Oxygen Delivery Method Room Air Weight: 85.8 kg Body Mass Index (BMI) 34.0 Intake & Output: Intake and Output for Last 24 Hours 08/27/20 08/28/20 08/29/20 23:59 23:59 23:59 Intake Total 6481.25 / 6481.25 808.63 / 928.63 360 / 360 Output Total 950 / 950 3000 / 3250 650 / 650 Balance 5531.25 / 5531.25 -2191.37 / -2321.37 -290 / -290 Lab / Micro Data Result Diagrams: 08/29/20 04:30 08/29/20 04:30 Labs: Laboratory Results - last 24 hr 08/29/20 04:30: WBC 13.3 H, RBC 3.22 L, Hgb 8.8 L, Hct 28.8 L, MCV 89.4, MCH 27.3, MCHC 30.6 L, RDW Std Deviation 60.3 H, RDW Coeff of Meka 18.3 H, Plt Count 273, MPV 9.5, Immature Gran % (Auto) 3.800 H, Neut % (Auto) 82.7 H, Lymph % (Auto) 5.9 L, [place] % (Auto) 6.0, Eos % (Auto) 1.3, Baso % (Auto) 0.3, Absolute Neuts (auto) 11.0 H, Absolute Lymphs (auto) 0.78 L, Nucleated RBC % 0, Retic Count 0.54, Immature Retic Fraction 14.10, Retic Hgb Equivalent 22.4 L 08/29/20 04:30: Sodium 139, Potassium 3.3 L, Chloride 109 H, Carbon Dioxide 23.0, Anion Gap 7, BUN 25 H, Creatinine 1.27 H, Estim Creat Clear Calc 31.99, Est GFR (MDRD) Af Amer 54 L, Est GFR (MDRD) Non-Af 44 L, BUN/Creatinine Ratio 19.7, Glucose 97, Calcium 8.2 L, Iron 15 L, TIBC 178 L, Iron Saturation 8.4 L, Ferritin 348 H Micro: Microbiology 08/26/20 21:50 Blood Culture (Wb) - Anticubital Left Blood Culture - Preliminary Klebsiella pneumoniae sp pneum 08/26/20 22:05 Urine, Catheterized Urine Culture - Final Klebsiella pneumoniae sp pneum 08/26/20 22:14 Mucosa - Nose SARS-CoV-2 Antigen (Rapid) - Final Radiography Diagnostic Testing: Radiology Impression Echocardiogram 08/28/20 06:25 Interpretation Summary The estimated ejection fraction is 55 %. No evidence for diastolic dysfunction. Ordering Physician: Martin Sanchez Referring Physician: MD Javier Gary Performed By: Denver Javed RCS Rhythm Strip Rhythm Strip: Sinus Rhythm Rate: 131 Ectopy: None Physical Exam Narrative Alert and oriented x3. Comfortable in no acute distress. Chest is moving symmetrically without extra respiratory effort. Abdomen is soft nontender nondistended. Kaur catheter is draining clear yellow urine. She is moving all extremities. Assessment & Plan Assessment/Plan (1) Cystocele, midline: (2) Severe sepsis: PLAN: My office will reach out to her Surendra for scheduling of an appointment after discharge. I spoke with the patient. Our plan will be to make arrangements for cystoscopy, ureteroscopy and ureteral stent change after complete antibiotic administration and stable medical status. This will be scheduled for at minimum 2-3 weeks after discharge. Please call if further urologic evaluation or intervention is needed, I will follow peripherally. (3) Hydronephrosis: QUALIFIERS: Hydronephrosis type: unspecified Qualified Code(s): N13.30 - Unspecified hydronephrosis (4) Acute UTI:
[2020-08-29] MEDS: Potassium Chloride Oral Tablet 20 MEQ 40 MEQ PO (11:00)
[2020-08-29] MEDS: Enoxaparin 40 MG/0.4 ML Syringe SC (11:19)
[2020-08-29] MEDS: Sertraline 50 MG Tablet 25 MG PO (11:19)
--- NOTE | 2020-08-29 14:26 | PN.HOSP_ITS ---
Subjective Subjective Patient states she is feeling much better today. She still feels very worn out but no further rigors. Her T-max in the last 24 hours has been 100.9. Her tachycardia is improved and her blood pressure has stabilized. Objective Data Objective Data Vital Signs: Vital Signs Temp Pulse Resp BP Pulse Ox 99 F 96 20 H 133/68 H 95 08/29/20 12:00 08/29/20 12:00 08/29/20 12:00 08/29/20 12:00 08/29/20 12:00 Oxygen Flow Rate (L/min) 2 Oxygen Delivery Method Room Air Weight: 85.8 kg Body Mass Index (BMI) 34.0 Intake & Output: Intake and Output for Last 24 Hours 08/27/20 08/28/20 08/29/20 23:59 23:59 23:59 Intake Total 6481.25 / 6481.25 808.63 / 928.63 910 / 910 Output Total 950 / 950 3000 / 3250 950 / 950 Balance 5531.25 / 5531.25 -2191.37 / -2321.37 -40 / -40 Lab / Micro Data Result Diagrams: 08/29/20 04:30 08/29/20 04:30 Labs: Laboratory Results - last 24 hr 08/29/20 04:30: WBC 13.3 H, RBC 3.22 L, Hgb 8.8 L, Hct 28.8 L, MCV 89.4, MCH 27.3, MCHC 30.6 L, RDW Std Deviation 60.3 H, RDW Coeff of Meka 18.3 H, Plt Count 273, MPV 9.5, Immature Gran % (Auto) 3.800 H, Neut % (Auto) 82.7 H, Lymph % (Auto) 5.9 L, [place] % (Auto) 6.0, Eos % (Auto) 1.3, Baso % (Auto) 0.3, Absolute Neuts (auto) 11.0 H, Absolute Lymphs (auto) 0.78 L, Nucleated RBC % 0, Retic Count 0.54, Immature Retic Fraction 14.10, Retic Hgb Equivalent 22.4 L 08/29/20 04:30: Sodium 139, Potassium 3.3 L, Chloride 109 H, Carbon Dioxide 23.0, Anion Gap 7, BUN 25 H, Creatinine 1.27 H, Estim Creat Clear Calc 31.99, Est GFR (MDRD) Af Amer 54 L, Est GFR (MDRD) Non-Af 44 L, BUN/Creatinine Ratio 19.7, Glucose 97, Calcium 8.2 L, Iron 15 L, TIBC 178 L, Iron Saturation 8.4 L, Ferritin 348 H Micro: Microbiology 08/26/20 21:50 Blood Culture (Wb) - Anticubital Left Blood Culture - Prelim inary Klebsiella pneumoniae sp pneum 08/26/20 22:05 Urine, Catheterized Urine Culture - Final Klebsiella pneumoniae sp pneum 08/26/20 22:14 Mucosa - Nose SARS-CoV-2 Antigen (Rapid) - Final Radiography Diagnostic Testing: Radiology Impression Echocardiogram 08/28/20 06:25 Interpretation Summary The estimated ejection fraction is 55 %. No evidence for diastolic dysfunction. Ordering Physician: Martin Sanchez Referring Physician: MD Javier Gary Performed By: Denver Javed RCS Rhythm Strip Rhythm Strip: Sinus Rhythm Rate: 131 Ectopy: None Physical Exam Const alert and oriented x3 Constitutional Narrative: Obese upper middle-aged white female lying in bed now on 2 L nasal cannula, appears fatigued but comfortable, very pleasant much less toxic appearing General Appearance: cooperative Orientation / Consciousness: lethargic Exam Limitations: no limitations HEENT normocephalic, head/scalp atraumatic and hearing grossly normal bilaterally Head and Scalp: normocephalic Eyes no scleral icterus Neck full ROM Neck Narrative: Mild JVD General: trachea midline Chest inspection of chest normal Resp normal respiratory effort, no retractions, no use of accessory muscles and clear to auscultation bilaterally Resp Narrative: tachypneic Effort and Inspection: symmetric chest movement and tachypneic Auscultation: wheezes upper bilaterally and anterior Cardio regular rate, regular rhythm, S1 normal heart sound, S2 normal heart sound, no murmurs, no rub, no gallops, no clicks and peripheral pulses 2+ throughout Rate: tachycardic Rhythm: regular rhythm GI normal to inspection, nondistended, normoactive bowel sounds, soft to palpation, non-tender and non-distended Extremity normal to inspection, full ROM, normal capillary refill and no clubbing, cyanosis or edema Skin no rashes or lesions noted, no wounds and skin turgor normal Neuro oriented x3, moves all extremities and no focal motor deficits Sensorium / Orientation: awake and alert Psych mental status grossly normal, thought process normal and cooperative Assessment & Plan Assessment/Plan (1) Hydronephrosis: QUALIFIERS: Hydronephrosis type: unspecified Qualified Code(s): N13.30 - Unspecified hydronephrosis (2) Severe sepsis: (3) Acute respiratory failure with hypoxia: PLAN: Severe sepsis secondary to Klebsiella bacteremia and UTI with hydronephrosis -Sepsis resolved -Continue IV antibiotics--> narrow to ceftriaxone with resulting sensitivities -Blood cultures positive for Klebsiella -Urine culture with Klebsiella -Patient never required pressors and we were able to stabilize her blood pressure with fluid resuscitation -Stent placed by urology on 08/27/2020 -Plan from urology is for cystoscopy, ureteroscopy and ureteral stent change after antibiotic courses is completed -Will schedule for 2 to 3 weeks after discharge -Transfer to PCU Acute hypoxic respiratory failure -Resolved -Patient now on 2 L nasal cannula and weaning -Suspect patient will be able to be weaned to room air today Troponin elevation -Mild elevation -Suspect stress-induced ischemia related to sepsis and hypotension -Echo shows no wall motion abnormality and EF is 65% Hydronephrosis -Stent placed 08/27/2020 -Appreciate urology input--> urology note reviewed from today and will need 2 to 3-week follow-up Acute on chronic anemia-normocytic -Suspect related to sepsis -Iron saturation and serum ferritin are low -TIBC is also low indicating more chronic disease -Would recommend repeat studies after sepsis syndrome is resolved if hemoglobin remains low -Hemoglobin is relatively stable in the last 24 hours -Baseline hemoglobin appears to be 11-12 ELÍAS -Baseline serum creatinine 0.5-1 -Resolving--> serum creatinine down to 1.27 today -Discontinued IV fluids last evening with respiratory distress Hypokalemia -Back down to 3.3 today with Lasix yesterday -40 mEq of p.o. potassium given -Repeat BMP Depression -Continue Zoloft Obesity -Complicates treatment, prognosis, and outcomes -Recommend weight loss DVT prophylaxis Continue enoxaparin CODE STATUS -Full code
--- NOTE | 2020-08-29 22:09 | CM.ED ---
NORMA Note Referral Source: [facility] Referral Reason: Possible SNF Placement SW was advised that patient had walked 20-25 feet by PT. May need SNF. SW provided patient with [place] SN[place] in [place]. Patient has [place] insurance and Medicare Part A. Patient reports she is walking well. SW remains available if needs arise. Plan: To be determined Crystal DAILEY
[2020-08-30] MEDS: Acetaminophen 325 MG Tablet 650 MG PO ×2 (00:13→09:23)
[2020-08-30 03:00] VITALS: PULSE 81
[2020-08-30 03:33] VITALS: BP 121/74; PULSE 94; RESP 18; TEMP 37.1; O2SAT 95
[2020-08-30 05:48] LABS: Absolute Lymphocyte Count 1.19 X10^3/uL (0.83-4.51); Absolute Neutrophil Count 7.7 X10^3/uL (2.0-7.7); Basophil# 0.03 X10^3/uL; Basophil% 0.3 % (0-1); Eosinophil# 0.15 X10^3/uL; Eosinophils% 1.5 % (0-5); Hematocrit 27.9 % (37-47); Hemoglobin 8.5 g/dL (12.0-15.0); Lymphocyte # 1.19 X10^3/ul (0.83-4.51); Lymphocyte % 11.8 % (19-41); Mean Corp Hgb Conc 30.5 g/dL (32-36); Mean Corpuscular Hgb 27.2 pg (27.0-32.0); Mean Corpuscular Volume 89.1 fL (81-99); Mean Platelet Vol. 9.5 fl (6.2-12.0); Monocyte# 0.79 X10^3/uL; Monocyte% 7.9 % (0-10); NRBC Flagged by Analyzer 0 % (0-5); Neutrophil # 7.71 X10^3/uL (2.7-7.7); Neutrophil % 76.6 % (47-70); Platelet Count 287 K/mm3 (150-450); RBC Distribution Width CV 18.5 % (11.6-14.6); RBC Distribution Width SD 59.5 fl (35.1-43.9); Red Blood Count 3.13 M/mm3 (4.2-5.4); White Blood Count 10.1 K/mm3 (4.4-11.0)
[2020-08-30 06:05] LABS: Anion Gap 7 (5-15); BUN 22 mg/dL (7-18); BUN/Creat Ratio 20.6 RATIO (10-20); Calcium,Total 8.3 mg/dL (8.5-10.1); Chloride 109 mmol/L (98-107); Creatinine, Serum 1.07 mg/dL (0.55-1.02); EST Glomerular Filtration Rate 54 mL/min (>60); Est Glom Filt Rate - Afr Amer 66 mL/min (>60); Estimated Creatinine Clearance 37.97 ml/min; Glucose 103 mg/dL (74-106); Potassium 3.3 mmol/L (3.5-5.1); Sodium Level 139 mmol/L (136-145)
[2020-08-30 07:00] VITALS: PULSE 85
[2020-08-30 07:35] VITALS: O2SAT 93
--- NOTE | 2020-08-30 08:05 | PCM.PN.INT ---
Assessment & Plan Assessment/Plan (1) Severe sepsis: PLAN: RECOMMENDATIONS: 1. Wean supplemental oxygen to maintain saturations at or above 90%. 2. Continue as needed bronchodilator therapy. 3. Continue antimicrobials as ordered. 4. Potassium repletion. 5. Encourage incentive spirometer use and mobilize patient as tolerated. 6. Hemodynamically stable on room air. Will sign off from a critical care perspective IMPRESSIONS: 1. Klebsiella severe sepsis secondary to UTI Appears to be secondary to gram-negative urinary tract source of infection with associated hydronephrosis with secondary hematogenous spread. The patient has been adequately volume resuscitated and remains hemodynamically stable. Patient currently hemodynamically stable on room air. Pansensitive Klebsiella noted in blood culture. Will sign off from a critical care perspective 2. Acute kidney injury Improved. Likely prerenal in etiology in the setting of #1. Creatinine has improved with volume expansion. We will continue to monitor urine output for now. No current indication for renal replacement therapy. 3. Hypokalemia Electrolyte repletion as ordered. Recheck levels in the morning. 4. Acute hypoxemic respiratory failure Resolved. Likely related to hypervolemia. The patient did respond to the transient use of BiPAP along with IV diuretic therapy and as needed bronchodilators. Continue to wean supplemental oxygen as tolerated. Encourage incentive spirometer use and mobilize patient as tolerated. This note was generated with [employer] dictation software. It may contain incorrect words, spelling, and punctuation that were not noted in checking the note before signing. Subjective Subjective Patient did well overnight. No acute issues were reported. Patient has remained hemodynamically stable on room air per nursing. Patient feels subjectively improved compared to previous, but not quite back to baseline. Patient is not reporting any dysuria or back pain. Objective Data Objective Data Vital Signs: Vital Signs Temp Pulse Resp BP Pulse Ox 37.1 C 85 18 121/74 H 95 08/30/20 03:33 08/30/20 07:00 08/30/20 03:33 08/30/20 03:33 08/30/20 03:33 Oxygen Flow Rate (L/min) 2 Oxygen Delivery Method Room Air Weight: 82.6 kg Body Mass Index (BMI) 34.0 Intake & Output: Intake and Output for Last 24 Hours 08/28/20 08/29/20 08/30/20 23:59 23:59 23:59 Intake Total 808.63 / 928.63 1550 / 1550 240 / 240 Output Total 3000 / 3250 1500 / 1500 Balance -2191.37 / -2321.37 50 / 50 240 / 240 Lab / Micro Data Result Diagrams: 08/30/20 05:12 08/30/20 05:12 Labs: Laboratory Results - last 24 hr 08/30/20 05:12: WBC 10.1, RBC 3.13 L, Hgb 8.5 L, Hct 27.9 L, MCV 89.1, MCH 27.2, MCHC 30.5 L, RDW Std Deviation 59.5 H, RDW Coeff of Meka 18.5 H, Plt Count 287, MPV 9.5, Immature Gran % (Auto) 1.900 H, Neut % (Auto) 76.6 H, Lymph % (Auto) 11.8 L, [place] % (Auto) 7.9, Eos % (Auto) 1.5, Baso % (Auto) 0.3, Absolute Neuts (auto) 7.7, Absolute Lymphs (auto) 1.19, Nucleated RBC % 0 08/30/20 05:12: Sodium 139, Potassium 3.3 L, Chloride 109 H, Carbon Dioxide 23.0, Anion Gap 7, BUN 22 H, Creatinine 1.07 H, Estim Creat Clear Calc 37.97, Est GFR (MDRD) Af Amer 66, Est GFR (MDRD) Non-Af 54 L, BUN/Creatinine Ratio 20.6 H, Glucose 103, Calcium 8.3 L Micro: Microbiology 08/26/20 21:50 Blood Culture (Wb) - Anticubital Left Blood Culture - Preliminary Klebsiella pneumoniae sp pneum 08/26/20 22:05 Urine, Catheterized Urine Culture - Final Klebsiella pneumoniae sp pneum 08/26/20 22:14 Mucosa - Nose SARS-CoV-2 Antigen (Rapid) - Final Rhythm Strip Rhythm Strip: Sinus Rhythm Rate: 131 Ectopy: None Physical Exam Const alert, oriented x3 and no apparent distress Nutritional Appearance: obese HEENT normocephalic and head/scalp atraumatic Head and Scalp: normal to inspection Eyes conjunctivae normal Neck full ROM and No nuchal rigidity Lymph Lymphatic: no lymphadenopathy noted Resp normal respiratory effort and no use of accessory muscles Auscultation: Negative for rales, rhonchi or wheezes Cardio regular rate, regular rhythm, S1 normal heart sound, S2 normal heart sound, no murmurs, no rub and no gallops Back/Spine no CVA tenderness Extremity normal to inspection, full ROM, normal capillary refill and no clubbing, cyanosis or edema Skin no rashes or lesions noted Neuro oriented x3, CN's II-XII intact bilaterally and no focal motor deficits Psych mental status grossly normal and thought process normal Charges/Coding Visit Charges Inpatient E&M: 71428 Subs Hosp L2
[2020-08-30] MEDS: Potassium Chloride Oral Tablet 20 MEQ 60 MEQ PO (09:23)
[2020-08-30] MEDS: Sertraline 50 MG Tablet 25 MG PO (09:23)
[2020-08-30] MEDS: Enoxaparin 40 MG/0.4 ML Syringe SC (09:23)
[2020-08-30] MEDS: Aspirin 81 MG TAB.CHEW PO (09:23)
[2020-08-30 09:33] VITALS: BP 111/66; PULSE 100; RESP 20; TEMP 37.3; O2SAT 97
[2020-08-30] MEDS: Caffeine 200 MG Tablet PO (12:19)
--- NOTE | 2020-08-30 12:52 | DS.PCM_ITS ---
Providers Date of Admission: 08/27/20 Primary Care Physician: Dr. Gary Herrera MD Consultations 08/27/20 10:40 Consult: Urology Routine Consulting Provider: Tiesha Gandhi Reason for Consult: Severe Sepsis with Left hydroureteronephrosis EMERGENT Consult: No MD Notified: Yes Date Notified: 08/27/20 Time Notified: 10:40 Method of Notification: Page Reason For Visit: SEPSIS DUE TO UTI Diagnosis Discharge Diagnosis (1) Severe sepsis: Status: Acute Code(s): A41.9 - Sepsis, unspecified organism; R65.20 - Severe sepsis without septic shock Medications at Discharge Home Medications meloxicam 15 mg PO DAILY 01/22/15 aspirin 81 mg PO DAILY 08/26/20 ergocalciferol (vitamin D2) 50,000 unit PO QWEEK 08/26/20 sertraline 25 mg PO DAILY 08/26/20 cefdinir 300 mg PO Q12H #20 cap 08/30/20 Hospital Course Operations - (Cystoscopy and left ureteral stent placement) Procedures 2-D Echocardiogram Summary of Care Provided Minutes Spent on Discharge: 46 Hospital Course: Mrs. Campos is a 70-year-old female who presented to the emergency department [facility] on 08/27/2020 with a chief c omplaint of altered mental status and general malaise. The patient reported that she not been feeling great for approximately a week but her symptoms really got worse 1 to 2 days prior to presentation. She complained of fever, abdominal pain and general malaise at home. She indicated she had not been eating or drinking well. In the emergency department she had a fever of 102. On admission her blood pressure was 157/96, she had a heart rate of 126, and her respiratory rate was 31. Oxygen saturation was 94% on room air. Her CBC showed an elevated white count. Her serum creatinine was 1.82 on admission. She had a lactic that was within normal limits. A CT scan was done in the emergency department and showed left hydroureteronephrosis with wall thickening of the bladder but no stones. Her UA was consistent with a urinary tract infection. She was admitted to the PCU and started on IV antibiotics. On the a.m. of 08/28/2020 she developed hypotension. Fluid boluses were initiated and the patient was transferred to the ICU. She was maintained on IV antibiotics. Dr. Gandhi from urology took the patient to the operating room that day and placed a stent in the left ureter. She had some mild troponin elevation which was thought to be related to her sepsis. An echocardiogram was performed and showed an EF of 55% with no signs of diastolic dysfunction or valve abnormalities. She was maintained in the ICU and developed some respiratory distress on the morning of 08/28/2020 for which she was placed on BiPAP. A one-time dose of Lasix was given and she responded favorably to this with BiPAP being able to wean to be weaned to nasal cannula 2 L by the end of the day. She was able to be completely weaned off oxygen on 08/29/2020 and was transferred out of the ICU that day as well. Antibiotics were narrowed to ceftriaxone after sensitivities were resulted. Culture showed Klebsiella pneumoniae in both her urine and blood. She was seen by physical therapy and had some weakness and continued physical therapy was recommended. The patient desired to go home. I discussed the case with infectious disease and they recommended continued antibiotics with oral coverage for 10 days after discharge. She was given a prescription for outpatient physical therapy. Omnicef 300 mg twice daily for 10 days was faxed to her pharmacy. She complained of a headache prior to discharge for which she was given a dose of Excedrin. She states that she gets headaches like this with weather changes and she felt that it was related to the weather changes we have had recently with rain. She is to follow-up with her primary care physician [address] Gandhi in 2 to 3 weeks. Discharge diagnoses: Severe sepsis Klebsiella bacteremia Klebsiella UTI Left hydroureteronephrosis Troponin elevation Acute hypoxic respiratory failure-resolved ELÍAS-resolved Hypokalemia Depression Obesity Anemia Physical Exam Const alert and oriented x3 Constitutional Narrative: Obese upper middle-aged white female sitting up in a chair at the bedside, appears tired but states she feels much better, patient on room air General Appearance: cooperative, comfortable, well kempt and well developed Exam Limitations: no limitations HEENT normocephalic, head/scalp atraumatic and hearing grossly normal bilaterally Eyes PERRL, EOMs intact bilaterally and no scleral icterus Neck full ROM and supple Neck Narrative: Trachea midline General: trachea midline Chest inspection of chest normal Resp normal respiratory effort, no retractions, no use of accessory muscles and clear to auscultation bilaterally Resp Narrative: tachypneic Effort and Inspection: symmetric chest movement and tachypneic Auscultation: wheezes upper bilaterally and anterior Cardio regular rate, regular rhythm, S1 normal heart sound, S2 normal heart sound, no murmurs, no rub, no gallops, no clicks and peripheral pulses 2+ throughout Rate: tachycardic Rhythm: regular rhythm GI normal to inspection, nondistended, normoactive bowel sounds, soft to palpation, non-tender and non-distended Extremity normal to inspection, full ROM, normal capillary refill and no clubbing, cyanosis or edema Skin no rashes or lesions noted, no wounds and skin turgor normal Neuro oriented x3, CN's II-XII intact bilaterally, moves all extremities and no focal motor deficits Neuro Narrative: Generalized weakness but no focal deficit Sensorium / Orientation: awake and alert Speech: speech normal Psych mental status grossly normal, thought process normal, cooperative and affect normal Psych Narrative: Calm and very pleasant Weight / BMI Weight Weight: 82.6 kg Body Mass Index (BMI) 34.0 ABG / Lab / Microbiology Data Result Diagrams: 08/30/20 05:12 08/30/20 05:12 Laboratory: Laboratory Results - last 24 hr 08/30/20 05:12: WBC 10.1, RBC 3.13 L, Hgb 8.5 L, Hct 27.9 L, MCV 89.1, MCH 27.2, MCHC 30.5 L, RDW Std Deviation 59.5 H, RDW Coeff of Meka 18.5 H, Plt Count 287, MPV 9.5, Immature Gran % (Auto) 1.900 H, Neut % (Auto) 76.6 H, Lymph % (Auto) 11.8 L, Mckean % (Auto) 7.9, Eos % (Auto) 1.5, Baso % (Auto) 0.3, Absolute Neuts (auto) 7.7, Absolute Lymphs (auto) 1.19, Nucleated RBC % 0 08/30/20 05:12: Sodium 139, Potassium 3.3 L, Chloride 109 H, Carbon Dioxide 23.0, Anion Gap 7, BUN 22 H, Creatinine 1.07 H, Estim Creat Clear Calc 37.97, Est GFR (MDRD) Af Amer 66, Est GFR (MDRD) Non-Af 54 L, BUN/Creatinine Ratio 20.6 H, Glucose 103, Calcium 8.3 L Microbiology: Microbiology 08/27/20 10:05 Blood Culture (Wb) - Anticubital Left Blood Culture - Preliminary No growth in 48 hours. 08/26/20 21:58 Blood Culture (Wb) - Anticubital Left Blood Culture - Preliminary No growth in 48 hours. 08/26/20 21:50 Blood Culture (Wb) - Anticubital Left Blood Culture - Preliminary Klebsiella pneumoniae sp pneum 08/26/20 22:05 Urine, Catheterized Urine Culture - Final Klebsiella pneumoniae sp pneum 08/26/20 22:14 Mucosa - Nose SARS-CoV-2 Antigen (Rapid) - Final D/C Instructions Discharge Diet: Low fat / Low cholesterol Discharge Activity: Return to Normal Activity Meaningful Use Info Meaningful Use Diagnoses (Choose all that apply): None applicable Discharge Plan Admission Admit Date/Time: 08/27/20 00:01 Primary Reason for Your Visit: Severe sepsis Attending Provider: Vilma Hernandez Primary Care Provider: Gary Herrera Consulting Providers: Tiesha Gandhi Discharge Orders/Prescriptions Prescriptions: New cefdinir 300 mg capsule 300 mg PO Q12H Qty: 20 RF: 0 Continued sertraline 25 mg tablet 25 mg PO DAILY RF: 0 ergocalciferol (vitamin D2) 1,250 mcg (50,000 unit) capsule 50,000 unit PO QWEEK RF: 0 aspirin 81 mg Tablet 81 mg PO DAILY RF: 0 Held meloxicam 15 MG tablet 15 mg PO DAILY RF: 0 Hold Instructions: Hold until after you have seen Dr. Gandhi Referrals / Follow Up: Tiesha Gandhi MD [STAFF PHYSICIAN] - Within 2 Weeks Gary Herrera MD [Primary Care Provider] - Within 1 Week Disposition Disposition (needs filled in before D/C Order can be placed): Home, Self Care Charges/Coding Visit Charges Inpatient E&M: 58607 Disch Hosp
== END 2020-08-30 14:40 | disposition home or self-care (01) | DRG 853 ==
LOC: ED 23:07 → PCU 08-27 00:08 → ICU 08-27 09:31 → PCU 08-29 17:20
PROVIDERS: Internal Medicine Critical Care Medicine; Urology; Admitting Provider Student in an Organized Health Care Education/Training Program; Emergency Provider Emergency Medicine; PCP Family Medicine; Visit Provider Internal Medicine
PROC: 0T778DZ Dilation of Left Ureter with Intraluminal Device, Via Natural or Artificial Opening Endoscopic (ICD-10-PCS; CPT 52332; principal; 2020-08-27 12:20)
DX: A41.59 Other Gram-negative sepsis (principal); R65.21 Severe sepsis with septic shock; J96.01 Acute respiratory failure with hypoxia; N13.6 Pyonephrosis; N17.9 Acute kidney failure, unspecified; B96.1 Klebsiella pneumoniae [K. pneumoniae] as the cause of diseases classified elsewhere; N81.11 Cystocele, midline; E87.6 Hypokalemia; E78.5 Hyperlipidemia, unspecified; F32.9 Major depressive disorder, single episode, unspecified; Z96.659 Presence of unspecified artificial knee joint; D64.9 Anemia, unspecified; E66.9 Obesity, unspecified; Z68.34 Body mass index [BMI] 34.0-34.9, adult
CPT/HCPCS: 36415; 71045; 74177; 76000; 80048; 80053; 81001; 82728; 83540; 83550; 83605; 83735; 83880; 84100; 84484; 85025; 85045; 85610; 85730; 87040; 87077; 87086; 87088; 87186; 87426; 93005; 93306; 94002; 94640; 97162; 97166; 97530; 97535; 99251; 99285; J2185; J7030; J7050; Q9957; Q9967; A4216; C2625; C8929; G0463; J0696; J1940; J3490

== ENCOUNTER → 2020-09-18 16:14 | Outpatient (CLI) | payer BC, SELFPAY ==
[2020-08-27 12:41] VITALS: BMI 34.0
[2020-09-18 17:44] LABS: Hematocrit 30.5 % (37-47); Mean Corp Hgb Conc 29.5 g/dL (32-36); Mean Corpuscular Hgb 26.9 pg (27.0-32.0); Mean Corpuscular Volume 91.3 fL (81-99); Mean Platelet Vol. 8.5 fl (6.2-12.0); Platelet Count 422 K/mm3 (150-450); RBC Distribution Width CV 16.9 % (11.6-14.6); RBC Distribution Width SD 56.8 fl (35.1-43.9); Red Blood Count 3.34 M/mm3 (4.2-5.4); White Blood Count 7.6 K/mm3 (4.4-11.0)
[2020-09-18 18:10] LABS: Anion Gap 7 (5-15); BUN 18 mg/dL (7-18); BUN/Creat Ratio 14.9 RATIO (10-20); Calcium,Total 9.1 mg/dL (8.5-10.1); Chloride 101 mmol/L (98-107); Creatinine, Serum 1.21 mg/dL (0.55-1.02); EST Glomerular Filtration Rate 47 mL/min (>60); Est Glom Filt Rate - Afr Amer 57 mL/min (>60); Glucose 119 mg/dL (74-106); Potassium 4.1 mmol/L (3.5-5.1); Sodium Level 136 mmol/L (136-145)
== END ==
PROVIDERS: PCP Family Medicine; Referring Provider Urology; Visit Provider Urology
DX: N13.2 Hydronephrosis with renal and ureteral calculous obstruction (principal); N39.0 Urinary tract infection, site not specified
CPT/HCPCS: 36415; 80048; 85027

== ENCOUNTER 2020-10-26 05:49 | Day surgery (SDC) | payer BC, SELFPAY ==
[2020-10-23 17:28] LABS: Hematocrit 32.5 % (37-47); Hemoglobin 9.4 g/dL (12.0-15.0); Mean Corp Hgb Conc 28.9 g/dL (32-36); Mean Corpuscular Hgb 27.6 pg (27.0-32.0); Mean Corpuscular Volume 95.3 fL (81-99); Mean Platelet Vol. 8.7 fl (6.2-12.0); Platelet Count 464 K/mm3 (150-450); RBC Distribution Width CV 17.9 % (11.6-14.6); RBC Distribution Width SD 63.2 fl (35.1-43.9); Red Blood Count 3.41 M/mm3 (4.2-5.4)
[2020-10-23 17:54] LABS: Anion Gap 7 (5-15); BUN 19 mg/dL (7-18); BUN/Creat Ratio 18.4 RATIO (10-20); Calcium,Total 9.2 mg/dL (8.5-10.1); Chloride 104 mmol/L (98-107); Creatinine, Serum 1.03 mg/dL (0.55-1.02); EST Glomerular Filtration Rate 57 mL/min (>60); Est Glom Filt Rate - Afr Amer 69 mL/min (>60); Glucose 120 mg/dL (74-106); Potassium 3.9 mmol/L (3.5-5.1); Sodium Level 139 mmol/L (136-145)
[2020-10-26] VITALS (7 sets, daily range): BP systolic 119–148; BP diastolic 72–85; PULSE 80–93; RESP 18; TEMP 36.6–36.8; O2SAT 96–100; BMI 35.4
[2020-10-26] MEDS: Lactated Ringers 1,000 ML 100 ML IV (06:38)
[2020-10-26] MEDS: Cefazolin 2 GM in 0.9% Normal Saline 100 ML IV (07:27)
[2020-10-26] MEDS: Lubricating Jelly 60 GM Tube 30 GM TOPICAL (07:43)
--- NOTE | 2020-10-26 08:05 | PCM.OPRPT ---
Problems Associated Problem List Diagnoses (1) Cystocele, midline: (2) Hydronephrosis: Report of Operation Date of Procedure: 10/26/20 Pre-Operative Diagnosis: Hydronephrosis Of the left kidney Post-Operative Diagnosis: Same Surgery/Procedure Performed:: Cystoscopy, left ureteroscopy, left ureteral stent removal Surgeon: Tiesha Gandhi Type of Anesthesia: General Description of Procedure: The patient is a 70-year-old female evaluation who presents for the left hydronephrosis that was previously stented. of Informed consent was obtained. Once anesthesia was appropriately administered the patient was placed into dorsal lithotomy position was prepped and draped in usual sterile fashion. The patient was taken to the operating room and placed on the operating room table. Anesthesia monitored the head, neck, airway, IV access and vital signs throughout the case. At this time the cystoscope was inserted through the urethra into the urinary bladder under direct visualization. Surveillance of the bladder revealed no evidence of mass or foreign body. There was erythema secondary to the indwelling stent. Due to the pessary that the patient now has, the cystocele was more reduced then the previous procedure, making the ureteral orifice much more appropriate and positioning. A 0.038 Glidewire was inserted alongside the stent. The stent was then grasped with graspers and pulled to the urethral meatus. A 0.025 Glidewire was then inserted through the stent which was removed. At this time the flexible ureteroscope was placed over the 0.025 Glidewire and easily advanced all the way to the renal pelvis. Every calyx was directly visualized and there were no stones, masses, erythema or abnormality identified. Direct visualization was performed of the entire length of the ureter. Once again no abnormalities were identified including areas of narrowing or stricture. Due to the nature of the findings, the decision was made to leave the patient without a ureteral stent. The safety wire was removed. The patient's bladder was emptied. She was awakened and taken to the recovery room in good condition. There were no complications during this procedure. Grafts/Implants Used: none Complications none Admit VTE Documentation VTE Present on Admission: Yes VTE Mechan Device Prophylaxis: SCD's VTE Pharm Prophylaxis ordered?: No Reason prophylaxis not ordered:: Treatment Not Indicated
--- NOTE | 2020-10-26 08:09 | PCM.DC ---
Discharge Instructions Diet Discharge Diet: No restrictions Activity Discharge Activity: Return to Normal Activity May resume sexual activity in: 1 week Dressing / Incision Call your doctor if you observe: Fever of 101 or Higher, Inability to urinate and Inability to have a bowel movement Follow Up Care Please Follow Up With: Tiesha Gandhi MD When: in the office for urodynamics Test Results: Test results from this visit will be discussed in further detail at your follow-up appointment, if applicable. Discharge Plan Admission Attending Provider: Tiesha Gandhi Primary Care Provider: Gary Herrera Discharge Orders/Prescriptions Prescriptions: Continued meloxicam 15 MG tablet 15 mg PO DAILY RF: 0 Hold Instructions: Hold until after you have seen Dr. Gandhi ergocalciferol (vitamin D2) 1,250 mcg (50,000 unit) capsule 50,000 unit PO QWEEK RF: 0 aspirin 81 mg Tablet 81 mg PO DAILY RF: 0 Referrals / Follow Up: Gary Herrera MD [Primary Care Provider] - Disposition Disposition (needs filled in before D/C Order can be placed): Home, Self Care
== END 2020-10-26 09:33 | disposition home or self-care (01) ==
LOC: SDC 05:50 → AC 05:51
PROVIDERS: PCP Family Medicine; Referring Provider Urology; Visit Provider Urology
PROC: 0TJ98ZZ Inspection of Ureter, Via Natural or Artificial Opening Endoscopic (ICD-10-PCS; CPT 52352; principal; 2020-10-26 07:20)
DX: N13.30 Unspecified hydronephrosis (principal); N81.11 Cystocele, midline; N39.0 Urinary tract infection, site not specified; N95.2 Postmenopausal atrophic vaginitis
CPT/HCPCS: 00910; 52332; 52351; 36415; 76000; 80048; 85027; J7120; C1769; J2405

== ENCOUNTER → 2020-11-06 15:40 | Outpatient (CLI) | payer BC, SELFPAY ==
[2020-11-06 16:20] LABS: Mucous, Urine 0 SEEN /hpf (<or=2+)
[2020-11-06 16:52] LABS: Absolute Lymphocyte Count 0.44 X10^3/uL (0.83-4.51); Absolute Neutrophil Count 6.4 X10^3/uL (2.0-7.7); Basophil# 0.02 X10^3/uL; Basophil% 0.3 % (0-1); Eosinophil# 0.54 X10^3/uL; Eosinophils% 6.8 % (0-5); Hematocrit 34.7 % (37-47); Hemoglobin 10.3 g/dL (12.0-15.0); Lymphocyte # 0.44 X10^3/ul (0.83-4.51); Lymphocyte % 5.5 % (19-41); Mean Corp Hgb Conc 29.7 g/dL (32-36); Mean Corpuscular Hgb 27.9 pg (27.0-32.0); Mean Platelet Vol. 8.7 fl (6.2-12.0); Monocyte# 0.42 X10^3/uL; Monocyte% 5.3 % (0-10); NRBC Flagged by Analyzer 0 % (0-5); Neutrophil # 6.43 X10^3/uL (2.7-7.7); POSITIVE DIFFERENTIAL YES; Platelet Count 390 K/mm3 (150-450); RBC Distribution Width CV 17.3 % (11.6-14.6); RBC Distribution Width SD 60.7 fl (35.1-43.9); Red Blood Count 3.69 M/mm3 (4.2-5.4); White Blood Count 7.9 K/mm3 (4.4-11.0)
[2020-11-06 17:06] LABS: Color, Urine Yellow (Yellow); Glucose, Dipstick 50 mg/dl (Normal); Ketone-Dipstick Negative (Negative); Leukocyte Esterase-Dipstick 500 /ul (Negative); Nitrite-Dipstick Negative (Negative); Occult Blood-Urine 250 /ul (Negative); Protein-Dipstick 100 mg/dl (Negative); Urine Bilirubin Dipstick Negative (Negative); Urine Clarity Cloudy (Clear); Urine Urobilinogen Normal (Normal); Urine pH 6.5 (5.0 - 8.0)
[2020-11-06 17:07] LABS: Differential Indicated SCAN CRITERIA MET
[2020-11-06 17:08] LABS: ALB/GLOB Ratio 0.6 RATIO (0.9-2.4); AST(SGOT) 15 U/L (15-37); Alanine Aminotransfer ALT/SGPT 14 U/L (13-56); Albumin, Serum 3.2 g/dL (3.2-5.0); Alkaline Phosphatase 110 U/L (45-117); Anion Gap 8 (5-15); BUN 11 mg/dL (7-18); BUN/Creat Ratio 8.3 RATIO (10-20); Calcium,Total 8.9 mg/dL (8.5-10.1); Chloride 104 mmol/L (98-107); Creatinine, Serum 1.33 mg/dL (0.55-1.02); EST Glomerular Filtration Rate 42 mL/min (>60); Est Glom Filt Rate - Afr Amer 51 mL/min (>60); Ferritin 44 ng/mL (8-252); Glucose 114 mg/dL (74-106); Iron 26 ug/dL (50-170); Iron Binding Capacity,Total 347 ug/dL (250-450); Protein, Total 8.2 g/dL (6.4-8.2); Sodium Level 137 mmol/L (136-145)
[2020-11-06 17:13] LABS: Bacteria RARE /hpf (None Seen); Red Blood Cells-Urine 50-100 SEEN /hpf (0-5); Squamous Epithelial Cells - UA 0-5 SEEN /hpf (5-10); White Blood Cells >100 SEEN /hpf (0-5)
[2020-11-06 17:40] LABS: Platelet Estimate ADEQUATE (ADEQ); Red Cell Morphology NORM C+C NORMAL (NORM C&C)
== END ==
PROVIDERS: PCP Internal Medicine; Referring Provider Internal Medicine; Visit Provider Internal Medicine
DX: N39.0 Urinary tract infection, site not specified (principal); D64.9 Anemia, unspecified; K21.9 Gastro-esophageal reflux disease without esophagitis; N81.11 Cystocele, midline
CPT/HCPCS: 36415; 80053; 81001; 82728; 83540; 83550; 85025; 87086; 87088

== ENCOUNTER → 2020-11-19 13:51 | Outpatient (CLI) | payer BC, SELFPAY ==
--- NOTE | 2020-11-19 13:52 | US_ITS ---
STUDY: RENAL ULTRASOUND - COMPLETE REASON FOR EXAM: Female, 70 years old. HYDRONEPHROSIS,LEFT TECHNIQUE: Ultrasound evaluation of the kidneys was performed with real-time and static condon-scale imaging. COMPARISON: None. FINDINGS: RIGHT KIDNEY: Normal location of the right kidney, which is normal in size. The right kidney measures 11 x 5.3 x 4.1 cm. There is a normal cortex of the right kidney. The renal cortex measures 1.3 cm. There is no right renal mass or cyst. There are no right renal calculi. There is no right hydronephrosis. DISTAL RIGHT URETER: There is non-visualization of the distal right ureter. There is no demonstrated right ureterovesical junction calculus. There is no demonstrated right ureteral jet. LEFT KIDNEY: Normal location of the left kidney, which is normal in size. The left kidney measures 10 x 5 x 4.4 cm. There is a normal cortex of the left kidney. The renal cortex measures 1.1 cm. There is no left renal mass or cyst. There are no left renal calculi. There is no left hydronephrosis. DISTAL LEFT URETER: There is non-visualization of the distal left ureter. There is no demonstrated left ureterovesical junction calculus. There is a visualized left ureteral jet. AORTA: There is no demonstrated aneurysm.. I.V.C.: The IVC is patent. BLADDER: The distended urinary bladder has a volume of 62 ml. There is a normal wall thickness of the distended urinary bladder. There is no demonstrated mass within the urinary bladder. There are no demonstrated bladder calculi. US/Kidney and Bladder IMPRESSION: Normal ultrasound of the kidneys and urinary bladder. Electronically Signed: Adelfo Avendaño MD at 3:31 EDT Tel , Service support ,
== END ==
PROVIDERS: PCP Internal Medicine; Referring Provider Urology; Visit Provider Urology
DX: N13.39 Other hydronephrosis (principal)
CPT/HCPCS: 76770

== ENCOUNTER 2020-12-29 05:32 | Day surgery (SDC) | payer BC, SELFPAY ==
[2020-12-22 17:47] LABS: Absolute Lymphocyte Count 1.44 X10^3/uL (0.83-4.51); Absolute Neutrophil Count 4.2 X10^3/uL (2.0-7.7); Basophil# 0.03 X10^3/uL; Basophil% 0.5 % (0-1); Eosinophil# 0.37 X10^3/uL; Eosinophils% 5.6 % (0-5); Hematocrit 31.7 % (37-47); Hemoglobin 9.7 g/dL (12.0-15.0); Lymphocyte # 1.44 X10^3/ul (0.83-4.51); Lymphocyte % 21.9 % (19-41); Mean Corp Hgb Conc 30.6 g/dL (32-36); Mean Corpuscular Hgb 28.7 pg (27.0-32.0); Mean Corpuscular Volume 93.8 fL (81-99); Mean Platelet Vol. 8.7 fl (6.2-12.0); Monocyte# 0.53 X10^3/uL; Monocyte% 8.1 % (0-10); NRBC Flagged by Analyzer 0 % (0-5); Neutrophil # 4.16 X10^3/uL (2.7-7.7); Neutrophil % 63.3 % (47-70); Platelet Count 391 K/mm3 (150-450); RBC Distribution Width CV 15.1 % (11.6-14.6); RBC Distribution Width SD 52.2 fl (35.1-43.9); Red Blood Count 3.38 M/mm3 (4.2-5.4); White Blood Count 6.6 K/mm3 (4.4-11.0)
[2020-12-22 17:58] LABS: Magnesium 2.1 mg/dL (1.6-2.6)
[2020-12-22 18:03] LABS: ALB/GLOB Ratio 0.7 RATIO (0.9-2.4); AST(SGOT) 10 U/L (15-37); Alanine Aminotransfer ALT/SGPT 13 U/L (13-56); Albumin, Serum 3.1 g/dL (3.2-5.0); Alkaline Phosphatase 110 U/L (45-117); Anion Gap 7 (5-15); BUN 15 mg/dL (7-18); BUN/Creat Ratio 12.7 RATIO (10-20); Chloride 106 mmol/L (98-107); Creatinine, Serum 1.18 mg/dL (0.55-1.02); EST Glomerular Filtration Rate 48 mL/min (>60); Est Glom Filt Rate - Afr Amer 59 mL/min (>60); Globulin 4.7 g/dL (2.2-4.2); Glucose 104 mg/dL (74-106); Potassium 3.7 mmol/L (3.5-5.1); Protein, Total 7.8 g/dL (6.4-8.2); Sodium Level 139 mmol/L (136-145)
--- NOTE | 2020-12-25 13:52 | EKG12_ITS ---
Test Reason : PRE OP Blood Pressure : / mmHG Vent. Rate : 092 BPM Atrial Rate : 092 BPM P-R Int : 156 ms QRS Dur : 086 ms QT Int : 346 ms P-R-T Axes : 051 045 048 degrees QTc Int : 427 ms Normal sinus rhythm Normal ECG Confirmed by JOSHUA OLMEDO, RICO ([id number]), brands editor PIETER BROWN ([id number]) on 12/28/2020 10:38:43 AM Referred By: Mary Muniz Confirmed By:RICO LEIWS MD
--- NOTE | 2020-12-28 17:12 | PCM.HP.BLA ---
History and Physical Date of Admission: 12/29/20 [facility] [id number] [place] [address] [phone] OFFICE VISITDate of Service: 12/14/20 MR#:[id number]:[id number]: INESSA SARAH [facility] #:[id number]:1950 Provider:Dr. Mary Muniz, MDAge/Sex: 70/F [facility] Vital Signs 12/14/20 09:09 Height 5 ft 4 in BP 122/64 H Intake Visit Reasons: TV BSO Oksana churcho Chief Complaint: pre op, [facility] bso oksana churcho Double Needle Stitcher Required: No Is patient in pain?: No Allergies wool Allergy (Verified 12/14/20 09:09) Hives Medications meloxicam 15 mg PO DAILY 01/22/15 [History Confirmed 12/14/20] aspirin 81 mg PO DAILY 08/26/20 [History Confirmed 12/14/20] ergocalciferol (vitamin D2) 50,000 unit PO QWEEK 08/26/20 [History Confirmed 12/14/20] ferrous sulfate 325 mg (65 mg iron) tablet 325 mg PO DAILY #90 tab 11/06/20 [Rx Confirmed 12/14/20] omeprazole 40 mg capsule,delayed release 40 mg PO DAILY #90 cap 11/06/20 [Rx Confirmed 12/14/20] Is last menstrual period known: No Post menopausal: No Patient : No : [facility] Abdominal pain Ambulates with cane Anemia Cataract Cystocele, midline Elevated blood pressure reading FH: total knee replacement Heartburn History of echocardiogram History of edema Hydronephrosis Non-smoker Shortness of breath on exertion UTI (urinary tract infection) Surgical History History of cataract surgery History of cystoscopy Knee joint replacement status S/P hip replacement Family History Father Heart disease Grandmother Heart disease Mother Heart disease Grandfather Heart disease Social History Smoking Status: Never smoker alcohol intake: never substance use type: does not use caffeine: Yes seatbelt use: always do you feel safe at home: Yes additional social history: patient is retired HPI TVH BSO Oksana combo Details: INESSA SARAH is a 70 year old who presents for prolapse and planning TVH BSO with Dr Gandhi. Pregancy History 1 Elective abortions Hx Para 1 Spontaneous abortions Hx # Term Pregnancies Ectopic pregnancies Hx # Pregnancies Multiple births # of living children Past Pregnancies Del. Date Name GA/Weeks Outcome Route Bth Weight Infant Gen Labor Lgth Anesthesia Del Locatn Provider FOB Unknown 1984 Gamaliel live - full term ROS Const Constitutional: Reports lethargy; Denies chills or headache(s) Eyes Eyes: Denies system reviewed and no additional complaints, except as documented, as per HPI, blurry vision, change in vision, diplopia, dry eyes, irritation, loss of peripheral vision, photophobia, spots in vision or other ENT ENT: Reports system reviewed and no additional complaints, except as documented Cardio Card: Denies chest pain Resp Resp: Denies cough or dyspnea GI GI: Reports abdominal pain; Denies bloating, change in stool character, constipation, fecal incontinence, nausea or vomiting : Reports pelvic pain, prolapse symptoms, sexual dysfunction, urinary frequency, urinary incontinence, urinary urgency and vaginal dryness; Denies vaginal discharge, vaginal odor or vaginal pruritus Musc Musc: Reports arthralgias, back pain and muscle weakness Skin Skin/Breast: Denies system reviewed and no additional complaints, except as documented, as per HPI, acne, alopecia, change in hair, nail changes, change in pigmentation, changing lesions, dry skin, hirsutism, jaundice, lesions, new lesions, pruritus, rash, sores, breast mass, breast pain, breast skin changes or other Neuro Neuro: Reports system reviewed and no additional complaints, except as documented Psych Psych: Reports anxiety; Denies depression Endo Endo: Denies cold intolerance, excessive sweating, heat intolerance or polydipsia Foreign/Lymph Hematologic/Lymphatic: Denies system reviewed and no additional complaints, except as documented, Denies as per HPI, Denies easy bleeding, Denies easy bruising, Denies lymphadenopathy and Denies other Exam Const General: cooperative, healthy appearing, comfortable, no acute distress and well developed Orientation: alert [facility] Head: normal to inspection, normocephalic and atraumatic Ears: hearing grossly normal bilaterally and external ears normal Nose: external nose normal and nares normal Face and sinus: normal facial exam Neck Neck: normal visual inspection, full ROM, no lymphadenopathy and trachea midline Thyroid: thyroid normal Chest Chest palpation & inspection: normal inspection of the chest Breast inspection: normal inspection of the breasts, normal inspection of the axillae, abnormal inspection of the axilla and abnormal inspection of the breast Resp Effort & Inspection: normal respiratory effort Auscultation: clear to auscultation bilaterally Cardio Rate: regular rate Rhythm: regular rhythm Heart Sounds: S1 normal and S2 normal GI Inspection: normal to inspection and non-distended Palpation: soft, no hepatosplenomegaly, no hepatomegaly, not rigid and nontender Pelvic Support: other (Declined pelvic exam at this time) Musc Other: gross motor intact no deficits, full bilateral strength Skin General: no rashes or lesions noted and atrophy Neuro General: patient alert, patient awake, moves all extremities and no focal motor deficits Motor: muscle tone normal throughout Extrem General: normal to inspection and no pedal edema Psych Appearance: grossly normal Mental Status: mental status grossly normal Affect: normal affect Speech and Movement: speech and movement normal Coding Level of Care Code No Charge Diagnoses Cystocele, midline N81.11 Assessment and Plan Assessment and Plan (1) Cystocele, midline: Status: Acute Comment: pessary, plan combo case with urogyn. [facility] BSO Plan - Dr. Mary Muniz MD: After discussing the patient's diagnosis and treatment plan options, patient wishes to proceed with surgical management. I have discussed with the patient the risks, benefits, and alternatives of the procedure which include but are not limited to risks of anesthesia, bleeding, infection, possible damage to bowel, bladder, or surrounding vasculature which could lead to additional surgery to evaluate any complications. Patient agrees to procedure and wishes to proceed. ACOG/uptodate references given for additional information regarding procedure. UPDATE- I have seen the patient and performed any clinically relevant updates to the history and physical exam. Mary Muniz MD
[2020-12-29] VITALS (16 sets, daily range): BP systolic 110–138; BP diastolic 56–79; PULSE 75–95; RESP 12–18; TEMP 36.3–36.9; O2SAT 91–100; BMI 35.2; BMI 35.4
--- NOTE | 2020-12-29 | HYST_PTH ---
PATIENT: INESSA SARAH LOC: [facility] [place] U#:[id number] AGE/SX: 70/F ROOM: RE12/29/[address]: Dr. Mary Muniz MD : 1950 BED: DIS: 12/30/2020 SPEC #: [id number] RECD: 12/29/20 13:31 STATUS: SHAINA SHAISTA #: [id number] POLLO: 12/29/20 00:[address]: Mary Muniz DEPT: SURGICAL PATHOLOGY RECD BY: Marcio Millan ENTERED: 12/29/20 13:31 SP TYPE: HYSTERECT OTHR DR: MD Dr. Tiesha Biggs MD Tissues: Uterus, NOS Procedures: Surgery Specimen Level V HEADER OPERATION: ERAS, vaginal hysterectomy, salpingo-oophorectomy PRE-OP DIAGNOSIS: Midline cystocele TISSUE SUBMITTED: Uterus, cervix, bilateral fallopian tubes and ovaries MICROSCOPIC DIAGNOSIS Uterus, hysterectomy: Cervix ? nabothian cysts, squamous metaplasia and chronic inflammation. Endometrium ? weakly proliferative to inactive endometrium with focal cystic change. Myometrium ? adenomyosis. Right and left ovaries ? benign epithelial inclusion cysts. Right and left fallopian tubes ? no pathologic change. AM:ron 12/30/2020 MICROSCOPIC DESCRIPTION Slides are reviewed. GROSS DESCRIPTION Received in fixative is one container labeled with the patient's name and designated uterus, cervix, bilateral fallopian tubes and bilateral ovaries. The specimen consists of a hysterectomy specimen consisting of uterus with cervix and detached bilateral fallopian tubes. The uterus with cervix weighs 37 gm and measures 7.5 x 3.5 x 2.5 cm. The serosal surface is kyle, glistening. The ectocervical mucosa is unremarkable. The external os is circular in contour. The endocervical canal measures 2.5 cm in length and the endocervical mucosa is kyle, glistening and unremarkable. The triangular endometrial cavity measures 4 cm in length and 1.8 cm in width. The endometrium is kyle, glistening without any mass lesion and measures <0.1 cm in thickness. Sections of the uterine wall reveal a small nodular mass measuring 0.2 cm in greatest dimension. The uterine wall measures up to 1.3 cm in thickness. The fallopian tubes and ovaries are not identified as right or left. One of the fallopian tubes measure 3.5 cm in length and 0.5 cm in diameter. The fimbrial end is identified. Sections reveal unremarkable cut surfaces. No tubo-ovarian adhesions are noted. The adjacent ovary measures 1.5 x 1 x 0.5 cm. Sections reveal unremarkable cut surfaces. The second fallopian tube has similar appearance to first one and measures 3.5 cm in length and 0.6 cm in diameter. The adjacent second ovary measures 2 x 1 x 0.5 cm. Sections reveal unremarkable cut surfaces. Box Builder sections are submitted in eight cassettes as follows: 1??anterior cervix, 2 - posterior cervix, 3 & 4 - anterior uterine wall, 5 & 6 - posterior uterine wall, small nodular mass, 7 - one fallopian tube and adjacent ovary, 8 - second fallopian tube and adjacent ovary. / SJ:rg 12/29/20 TC:5 CPT: 44958
[2020-12-29 06:26] LABS: Bedside Glucose 175 mg/dL (70-110)
[2020-12-29] MEDS: Lactated Ringers 1,000 ML 40 ML IV ×2 (06:31→08:30)
[2020-12-29] MEDS: dexAMETHasone 10 MG/ML Vial 8 MG IV (06:33)
[2020-12-29] MEDS: Enoxaparin 40 MG/0.4 ML Syringe SC (06:34)
[2020-12-29] MEDS: Acetaminophen 500 MG Tablet 1000 MG PO ×3 (06:36→18:31)
[2020-12-29] MEDS: Gabapentin 600 MG Tablet PO (06:36)
[2020-12-29] MEDS: Celecoxib 200 MG Capsule 400 MG PO (06:36)
[2020-12-29] MEDS: Scopolamine 1mg/72hr Patch 1 PATCH TD (06:37)
[2020-12-29] MEDS: Cefazolin 2 GM in 0.9% Normal Saline 100 ML IV (07:26)
--- NOTE | 2020-12-29 07:29 | PCM.OPRPT ---
Problems Associated Problem List Diagnoses (1) Cystocele, midline: Report of Operation Date of Procedure: 12/29/20 Pre-Operative Diagnosis: see PL Post-Operative Diagnosis: same Surgery/Procedure Performed:: TVH BSO Description of Surgical Findings:: nl uterus tubes ovaries Type of Anesthesia: General Specimen's removed: uterus, tubes, ovaries Drains: thorpe Fluids Replaced: crystalloid Description of Procedure: Patient was taken to the operating room and was placed under general anesthesia was prepped and draped in normal sterile fashion in the dorsal lithotomy position. Preoperative antibiotics and SCDs and Thorpe catheter was placed inside the bladder. Weighted speculum was placed in the vagina and the anterior and posterior lip of the cervix was grasped with 2 Jimena clamps and circumferentially injected with dilute vasopressin. A circumferential incision was made with a scalpel and the posterior cul-de-sac was entered into sharply and a longneck speculum was placed. The anterior cul-de-sac was also dissected down and entered into sharply and the uterosacral ligaments were clamped cut and suture ligated bilaterally followed by the cardinal ligaments which were Clamped cut and suture ligated bilaterally with 0 Monocryl. The uterus serially descended and progressive bites were taken bilaterally up to the level of the utero-ovarian ligament bilaterally which was clamped transected and double ligated with 0 Monocryl suture and 0 Vicryl free tie. Bilateral fallopian tubes and ovaries were well visualized and noted be within normal limits and the IP ligament was transected across the base with a chica clamp, then ovaries and tubes removed and the pedicle double ligated with O monocryl. the left ovarian pedice suture broke while tying down, so a chica clamp was placed across the base and this was double ligated for Excellent hemostasis. The vagina was closed with [id number] 0 Vicryl pop offs including the posterior and anterior peritoneum in the reapproximation. Excellent hemostasis was noted. Then Dr. Gandhi began her portion of the procedure. Grafts/Implants Used: none Complications none Admit VTE Documentation VTE Present on Admission: No VTE Mechan Device Prophylaxis: SCD's VTE Pharm Prophylaxis ordered?: Yes Multi Select Codes Urinary/Genital Urinary/Genital CPT Codes: 24859 TVH+BS/O <250gr uterus
--- NOTE | 2020-12-29 07:33 | PCM.DC ---
Discharge Instructions Diet Discharge Diet: No restrictions Activity Discharge Activity: Return to Normal Activity, May Not Drive (while taking narcotic pain medications.) and May Shower May resume sexual activity in: 6-8 weeks Dressing / Incision Call your doctor if your incision/area has: Continuous Slow Oozing, Sudden Increased Bleeding, Increased Pain/ Swelling, Increased Redness and Foul Smelling Discharge Call your doctor if you observe: Fever of 101 or Higher, Inability to urinate, Inability to have a bowel movement and Using more than 1 pad per hour Follow Up Care Please Follow Up With: Mary Muniz MD Test Results: Test results from this visit will be discussed in further detail at your follow-up appointment, if applicable. Discharge Plan Admission Primary Reason for Your Visit: hysterectomy and pelvic floor repair Attending Provider: Mary Muniz Primary Care Provider: Gemini Rodriguez Consulting Providers: Tiesha Gandhi Discharge Orders/Prescriptions Prescriptions: New oxycodone-acetaminophen [Percocet] 5-325 mg tablet 1 tab PO Q6H PRN (Reason: pain) 7 Days Qty: 20 RF: 0 Continued omeprazole 40 mg capsule,delayed release(DR/EC) 40 mg PO DAILY Qty: 90 RF: 1 ferrous sulfate 325 mg (65 mg iron) tablet 325 mg PO DAILY Qty: 90 RF: 2 meloxicam 15 MG tablet 15 mg PO DAILY RF: 0 Hold Instructions: Hold until after you have seen Dr. Gandhi ergocalciferol (vitamin D2) 1,250 mcg (50,000 unit) capsule 50,000 unit PO QWEEK RF: 0 aspirin 81 mg Tablet 81 mg PO DAILY RF: 0 Referrals / Follow Up: Gemini Rodriguez MD [Primary Care Provider] - Disposition Disposition (needs filled in before D/C Order can be placed): Home, Self Care
[2020-12-29] MEDS: Lubricating Jelly 60 GM Tube 30 GM (08:00)
--- NOTE | 2020-12-29 08:27 | PCM.OPRPT ---
Problems Associated Problem List Diagnoses (1) Cystocele, midline: (2) Stress bladder incontinence, female: Report of Operation Date of Procedure: 12/29/20 Pre-Operative Diagnosis: cystocele, stress urinary incontinence Post-Operative Diagnosis: same Surgery/Procedure Performed:: anterior repair with dermis, bilateral sacrospinous ligament fixation, cystoscopy with ureteral catheterization, midurethral sling insertion Surgeon: Tiesha Gandhi Type of Anesthesia: General Estimated Blood Loss (mL): 25 cc Description of Procedure: The patient is a 70-year-old female with significant anterior prolapse now presenting for definitive surgical intervention with anterior repair, bilateral sacrospinous ligament fixation and mid urethral sling insertion. Informed consent was obtained. Patient was taken to the operating room placed on the operating room table. Anesthesia monitored the head, neck, airway, IV access and vital signs throughout the case. Once anesthesia was appropriate ministered the patient was placed into dorsal lithotomy and Trendelenburg position and was prepped and draped in usual sterile fashion. A Kaur catheter was inserted to straight drain and the bladder was emptied. Dr. Muniz proceeded with her portion of the case, closing the cuff at the end. At this time I deflated the Kaur balloon removing it, placed the cystoscope through the urethra into the urinary bladder for evaluation of the left ureter as it was close to the area of the left ovary. There were no areas of injury or abnormality to the urinary bladder. The left ureteral orifice was identified and easily intubated with a whistle-tip catheter extended to 20 cm. Upon removal there was no blood on the whistle-tip. At this time the cystoscope was removed and the Kaur catheter was replaced. The anterior vaginal wall was isolated and injected submucosally with vasopressin for hydrostatic dissection and hemostatic control. A midline vertical incision approximately 2 cm in length was then made. Bilateral dissection was performed in full-thickness fashion of the main mucosa until the ischial spines were palpable and freed from surrounding tissues. Her actual pelvis was very narrow in size. Ethibond sutures were passed on each side through the sacrospinous ligament with care being taken to avoid any involvement with the ureter. The sutures were brought through the dermis which was trimmed to length and width. The dermis was then tied to the spines and brought through the vaginal mucosa at the apex. In the midline at the apex, the dermis was sutured to the vaginal mucosa in full-thickness fashion. The dermis was then positioned and sutured medially at the bladder neck area and laterally as close to the white line as possible though not really visible. At this time the vaginal mucosa was closed over the dermis with running interlocking 2-0 Vicryl. The Ethibond sutures were then tied into position. At this time the mid urethra was injected submucosally and a midline incision was made. Sharp and blunt dissection was performed on either side of the urethra for placement of the mid urethral sling. Her tissues here were very thin and tore very easily so extra care was taken. The Altis mid urethral sling was then inserted into the obturator complexes bilaterally using the given trochars. The mesh was tightened against the urethra and lay flat in nature. The tensioning suture was cut and the mucosa was closed in running interlocking fashion over the mesh. At this time the Kaur catheter was once again removed. The cystoscope was inserted through the urethra under direct visualization into the urinary bladder revealing no evidence of injury to the urinary bladder or the urethra. Bilateral ureteral orifices were located in correct anatomic position and the cystocele was no longer evident. At this time the whistle-tip catheter was used to gently cannulate the right ureteral orifice and it was extended easily to 20 cm. This process was then repeated on the left side which is also done without difficulty or evidence of ureteral injury. At this time the cystoscope and whistle-tip catheter were removed and the Kaur catheter was replaced. The vagina was packed with vaginal cream and plain packing. The patient was awakened and taken to the recovery room in good condition. There were no complications during this procedure. Grafts/Implants Used: Dermis, Altis midurethral sling Complications None Admit VTE Documentation VTE Present on Admission: Yes VTE Mechan Device Prophylaxis: SCD's VTE Pharm Prophylaxis ordered?: Yes
--- NOTE | 2020-12-29 08:31 | PCM.DC ---
Discharge Instructions Diet Discharge Diet: No restrictions Activity Discharge Activity: May Shower May resume sexual activity in: 8 weeks Lifting Restrictions: 5 pounds. Additional Activity Instructions:: no exercise, no strenuous activity. no sexual activity. no hot tubs, swimming or tub bathing. continue vaginal estrogen cream Dressing / Incision Call your doctor if your incision/area has: Continuous Slow Oozing, Sudden Increased Bleeding, Increased Pain/ Swelling, Increased Redness and Foul Smelling Discharge Call your doctor if you observe: Fever of 101 or Higher, Inability to urinate, Inability to have a bowel movement, Using more than 1 pad per hour and Uncontrolled pain Follow Up Care Please Follow Up With: Mary Muniz MD When: and Dr. Gandhi Test Results: Test results from this visit will be discussed in further detail at your follow-up appointment, if applicable. Discharge Plan Admission Primary Reason for Your Visit: hysterectomy and pelvic floor repair Attending Provider: Mary Muniz Primary Care Provider: Gemini Rodriguez Consulting Providers: Tiesha Gandhi Discharge Orders/Prescriptions Prescriptions: New oxycodone-acetaminophen [Percocet] 5-325 mg tablet 1 tab PO Q6H PRN (Reason: pain) 7 Days Qty: 20 RF: 0 Continued omeprazole 40 mg capsule,delayed release(DR/EC) 40 mg PO DAILY Qty: 90 RF: 1 ferrous sulfate 325 mg (65 mg iron) tablet 325 mg PO DAILY Qty: 90 RF: 2 meloxicam 15 MG tablet 15 mg PO DAILY RF: 0 Hold Instructions: Hold until after you have seen Dr. Gandhi ergocalciferol (vitamin D2) 1,250 mcg (50,000 unit) capsule 50,000 unit PO QWEEK RF: 0 aspirin 81 mg Tablet 81 mg PO DAILY RF: 0 Referrals / Follow Up: Gemini Rodriguez MD [Primary Care Provider] - Disposition Disposition (needs filled in before D/C Order can be placed): Home, Self Care
[2020-12-29] MEDS: Vasopressin 20 UNITS/ML Vial (09:30)
[2020-12-29] MEDS: Estrogens,Conj. 1 Tube 1 DOSE (10:00)
[2020-12-29] MEDS: Lactated Ringers 1,000 ML 70 ML IV ×2 (10:30→13:52)
--- NOTE | 2020-12-29 13:12 | PCS.PANDOC ---
PANDEMIC DOCUMENTATION INITIATED: Date: 09/28/2020 Time: 190
[2020-12-29 13:37] LABS: Absolute Lymphocyte Count 0.63 X10^3/uL (0.83-4.51); Absolute Neutrophil Count 8.9 X10^3/uL (2.0-7.7); Basophil# 0.01 X10^3/uL; Basophil% 0.1 % (0-1); Eosinophil# 0.02 X10^3/uL; Eosinophils% 0.2 % (0-5); Hematocrit 29.4 % (37-47); Hemoglobin 8.7 g/dL (12.0-15.0); Lymphocyte # 0.63 X10^3/ul (0.83-4.51); Lymphocyte % 6.4 % (19-41); Mean Corp Hgb Conc 29.6 g/dL (32-36); Mean Corpuscular Hgb 27.6 pg (27.0-32.0); Mean Corpuscular Volume 93.3 fL (81-99); Mean Platelet Vol. 8.4 fl (6.2-12.0); Monocyte# 0.15 X10^3/uL; Monocyte% 1.5 % (0-10); NRBC Flagged by Analyzer 0 % (0-5); Neutrophil # 8.92 X10^3/uL (2.7-7.7); Neutrophil % 91.2 % (47-70); Platelet Count 333 K/mm3 (150-450); RBC Distribution Width CV 14.9 % (11.6-14.6); RBC Distribution Width SD 51.1 fl (35.1-43.9); Red Blood Count 3.15 M/mm3 (4.2-5.4); White Blood Count 9.8 K/mm3 (4.4-11.0)
[2020-12-29] MEDS: Ketorolac 30 MG/ML Syringe 15 MG IV ×2 (13:56→18:31)
[2020-12-29] MEDS: Pantoprazole Sodium 40 MG Tablet PO (14:53)
[2020-12-29] MEDS: Ciprofloxacin 500 MG Tablet PO ×2 (14:53→21:48)
[2020-12-29] MEDS: Docusate Sodium 100 MG Capsule PO ×2 (14:53→21:48)
[2020-12-30] VITALS (7 sets, daily range): BP systolic 115–133; BP diastolic 58–76; PULSE 65–89; RESP 14–20; TEMP 36.2–36.8; O2SAT 98–99
[2020-12-30] MEDS: Acetaminophen 500 MG Tablet 1000 MG PO ×2 (01:29→06:02)
[2020-12-30] MEDS: Lactated Ringers 1,000 ML 70 ML IV (01:30)
[2020-12-30] MEDS: Ketorolac 30 MG/ML Syringe 15 MG IV ×3 (01:33→11:19)
--- NOTE | 2020-12-30 03:30 | RAD_ITS ---
STUDY: X-RAY CHEST REASON FOR EXAM: Female, 70 years old patient with cough and rhonchi. TECHNIQUE: Single AP portable view of the chest. COMPARISON: Chest radiograph dated 08/28/2020. FINDINGS: The lungs are expanded. There are prominent bronchovascular markings in both lungs. There is no demonstrated pleural abnormality. There is borderline cardiomegaly. Normal mediastinum and dalton. Normal visualized pulmonary arteries. There is atherosclerotic tortuosity of the aortic arch and descending thoracic aorta. There are diffuse degenerative changes of the visualized thoracic spine. There are degenerative changes of both shoulders. There is no demonstrated abnormality of the visualized soft tissue structures of the upper abdomen. RAD/Chest 1 View (Portable) IMPRESSION: Borderline cardiomegaly and mild pulmonary vascular congestion. Electronically Signed: Catherine Hammonds MD at 4:31 EST , Service support ,
--- NOTE | 2020-12-30 03:36 | NURSING ---
PT HAVING A HARSH MOIST PRODUCTIVE COUGH, LUNGS W CRACKLES TO THE BASES AND RHONCHI. PT STATED HER LUNGS HAVE NEVER FELT THIS BAD. CALL PLACED TO DR BROOKS, IVF STOPPED, ALBUTEROL ORDERED, STAT CHEST XRAY AND TO HAVE RESP COME SEE THE PT.
[2020-12-30] MEDS: Albuterol 2.5 MG/3 ML VIAL.NEB. INHALATION ×3 (04:47→11:36)
[2020-12-30] MEDS: Furosemide 20 MG/2 ML VIAL IV (06:04)
--- NOTE | 2020-12-30 07:18 | PN_ITS ---
Subjective Subjective Patient sitting up in bed without complaints this morning. Pain is controlled except when she coughs. No nausea or vomiting. Objective Data Objective Data Vital Signs: Vital Signs Temp Pulse Resp BP Pulse Ox 98.2 F 74 16 115/76 98 12/30/20 01:00 12/30/20 04:49 12/30/20 04:49 12/30/20 01:00 12/30/20 01:00 Oxygen Flow Rate (L/min) 2 Oxygen Delivery Method Nasal Cannula Weight: 81.7 kg Body Mass Index (BMI) 35.4 Intake & Output: Intake and Output for Last 24 Hours 12/28/20 12/29/20 12/30/20 23:59 23:59 23:59 Intake Total 2615 / 2715 1914.33 / 1914.33 Output Total 1050 / 1450 400 / 400 Balance 1565 / 1265 1514.33 / 1514.33 Lab / Micro Data Result Diagrams: 12/29/20 13:30 12/22/20 15:51 Labs: Laboratory Results - last 24 hr 12/29/20 13:30: WBC 9.8, RBC 3.15 L, Hgb 8.7 L, Hct 29.4 L, MCV 93.3, MCH 27.6, MCHC 29.6 L, RDW Std Deviation 51.1 H, RDW Coeff of Meka 14.9 H, Plt Count 333, MPV 8.4, Immature Gran % (Auto) 0.600, Neut % (Auto) 91.2 H, Lymph % (Auto) 6.4 L, [place] % (Auto) 1.5, Eos % (Auto) 0.2, Baso % (Auto) 0.1, Absolute Neuts (auto) 8.9 H, Absolute Lymphs (auto) 0.63 L, Nucleated RBC % 0 Radiography Diagnostic Testing: Radiology Impression Chest X-Ray 12/30/20 03:30 IMPRESSION: Borderline cardiomegaly and mild pulmonary vascular congestion. Electronically Signed: Catherine Hammonds MD at 4:31 EST , Service support , Physical Exam Narrative Alert and oriented x3. Respiratory effort is normal. Getting a respiratory treatment momentarily. Abdomen soft nontender nondistended.Urine is clear in th e Kaur. Packing and catheter were removed without difficulty. SCDs in place. Assessment & Plan Assessment/Plan (1) Stress bladder incontinence, female: (2) S/P vaginal hysterectomy: (3) Cystocele, midline: PLAN: Continue supportive care. Respiratory toilet. Ambulation and trial of void.
[2020-12-30 07:26] LABS: Hematocrit 27.8 % (37-47); Hemoglobin 8.2 g/dL (12.0-15.0); Mean Corp Hgb Conc 29.5 g/dL (32-36); Mean Corpuscular Hgb 27.8 pg (27.0-32.0); Mean Corpuscular Volume 94.2 fL (81-99); Mean Platelet Vol. 8.9 fl (6.2-12.0); Platelet Count 328 K/mm3 (150-450); RBC Distribution Width CV 14.6 % (11.6-14.6); RBC Distribution Width SD 50.4 fl (35.1-43.9); Red Blood Count 2.95 M/mm3 (4.2-5.4); White Blood Count 8.8 K/mm3 (4.4-11.0)
--- NOTE | 2020-12-30 07:54 | PCM.PN.OB ---
Subjective Subjective patient recovering well, denies CP, SOB, N, or V. patient is ambulating, tolerating adequate po, and pain is controlled with oral medications. Kaur cath just removed and had not voided yet. Recent lasix given. Objective Data Objective Data Vital Signs: Vital Signs Temp Pulse Resp BP Pulse Ox 98.2 F 69 16 115/76 99 12/30/20 01:00 12/30/20 07:19 12/30/20 07:19 12/30/20 01:00 12/30/20 07:19 Oxygen Flow Rate (L/min) 2 Oxygen Delivery Method Nasal Cannula Weight: 180 lb 1.883 oz Body Mass Index (BMI) 35.4 Intake & Output: Intake and Output for Last 24 Hours 12/28/20 12/29/20 12/30/20 23:59 23:59 23:59 Intake Total 2615 / 2715 1914.33 / 1914.33 Output Total 1050 / 1450 400 / 400 Balance 1565 / 1265 1514.33 / 1514.33 Lab / Micro Data Result Diagrams: 12/30/20 06:44 12/22/20 15:51 Labs: Laboratory Results - last 24 hr 12/29/20 13:30: WBC 9.8, RBC 3.15 L, Hgb 8.7 L, Hct 29.4 L, MCV 93.3, MCH 27.6, MCHC 29.6 L, RDW Std Deviation 51.1 H, RDW Coeff of Meka 14.9 H, Plt Count 333, MPV 8.4, Immature Gran % (Auto) 0.600, Neut % (Auto) 91.2 H, Lymph % (Auto) 6.4 L, [place] % (Auto) 1.5, Eos % (Auto) 0.2, Baso % (Auto) 0.1, Absolute Neuts (auto) 8.9 H, Absolute Lymphs (auto) 0.63 L, Nucleated RBC % 0 12/30/20 06:44: WBC 8.8, RBC 2.95 L, Hgb 8.2 L, Hct 27.8 L, MCV 94.2, MCH 27.8, MCHC 29.5 L, RDW Std Deviation 50.4 H, RDW Coeff of Meka 14.6, Plt Count 328, MPV 8.9 Radiography Diagnostic Testing: Radiology Impression Chest X-Ray 12/30/20 03:30 IMPRESSION: Borderline cardiomegaly and mild pulmonary vascular congestion. Electronically Signed: Catherine Hammonds MD at 4:31 EST , Service support , Physical Exam Const alert, oriented x3 and no apparent distress GI soft to palpation Assessment & Plan (1) S/P vaginal hysterectomy: COMMENT: TVHBSO SM prolapse with combo case with arnie PLAN: patient is s/p TVH BSO POD 1 1. routine ERAS protocol postop care- increase ambulation, encourage oral intake and oral control of pain. lovenox and scds for dvt prophylaxis. Repeat CBC in [address] Gandhi note and orders for further care.
[2020-12-30 09:10] LABS: Absolute Lymphocyte Count 1.11 X10^3/uL (0.83-4.51); Absolute Neutrophil Count 7.1 X10^3/uL (2.0-7.7); Basophil# 0.02 X10^3/uL; Basophil% 0.2 % (0-1); Eosinophil# 0.01 X10^3/uL; Eosinophils% 0.1 % (0-5); Hematocrit 30.2 % (37-47); Hemoglobin 9.2 g/dL (12.0-15.0); Lymphocyte # 1.11 X10^3/ul (0.83-4.51); Lymphocyte % 12.4 % (19-41); Mean Corp Hgb Conc 30.5 g/dL (32-36); Mean Corpuscular Hgb 28.6 pg (27.0-32.0); Mean Corpuscular Volume 93.8 fL (81-99); Mean Platelet Vol. 8.4 fl (6.2-12.0); Monocyte# 0.67 X10^3/uL; Monocyte% 7.5 % (0-10); NRBC Flagged by Analyzer 0 % (0-5); Neutrophil # 7.11 X10^3/uL (2.7-7.7); Neutrophil % 79.2 % (47-70); Platelet Count 351 K/mm3 (150-450); RBC Distribution Width CV 14.8 % (11.6-14.6); Red Blood Count 3.22 M/mm3 (4.2-5.4)
[2020-12-30] MEDS: Docusate Sodium 100 MG Capsule PO (09:17)
[2020-12-30] MEDS: Pantoprazole Sodium 40 MG Tablet PO (09:17)
[2020-12-30] MEDS: Ciprofloxacin 500 MG Tablet PO (09:17)
[2020-12-30] MEDS: Enoxaparin 40 MG/0.4 ML Syringe SC (09:17)
[2020-12-30] MEDS: oxyCODONE 5 MG Tablet PO (09:20)
--- NOTE | 2020-12-30 14:54 | CHAPLAIN ---
Type of Pastoral Visit _x__ Initial Visit ___ Follow-up Visit ___ On-call Visit ___ General Patient Visit ___ Spiritual Assessment ___ Family Conference ___ Bereavement ___ Rapid Response ___ Code Blue ___ Other (describe below) Pastoral Care Referral From _x__ Patient ___ Family ___ Nurse ___ Physician ___ Tripe Washer ___ Program Review Director ___ Other (describe below) Sacrament/Intervention _x__ Active listening ___ Anointing ___ Orthodoxy ___ Bereavement ___ Communion ___ Billie exploration ___ ___ Life review _x__ Prayer ___ Reconciliation ___ Sacrament of Sick ___ Supportive presence ___ Wedding ___ Other (describe below) Pastoral Comments spouse is with patient; prayer requested
== END 2020-12-30 15:04 | disposition home or self-care (01) ==
LOC: SDC 05:32 → AC 05:32 → MS2 12-30 09:09
PROVIDERS: Anesthesiology; Nurse Practitioner Women's Health; Urology; PCP Internal Medicine; Referring Provider Obstetrics & Gynecology; Visit Provider Obstetrics & Gynecology
PROC: (CPT 58260; principal; 2020-12-29 07:10)
PROC: (CPT 57260; 2020-12-29 07:10)
DX: N81.11 Cystocele, midline (principal); N39.3 Stress incontinence (female) (male); I51.7 Cardiomegaly; Z79.1 Long term (current) use of non-steroidal anti-inflammatories (NSAID); Z79.82 Long term (current) use of aspirin; Z82.49 Family history of ischemic heart disease and other diseases of the circulatory system
CPT/HCPCS: 57240; 57282; 57288; 58262; 36415; 71045; 80053; 82962; 83735; 85025; 85027; 86850; 86900; 86901; 88307; 93005; 94640; 94762; 99251; J7120; C1758; G0463; J1940; J2405

== ENCOUNTER 2021-05-10 10:08 | Outpatient (CLI) | payer BC, SELFPAY ==
[2021-05-10 12:25] LABS: Absolute Lymphocyte Count 1.26 X10^3/uL (0.83-4.51); Absolute Neutrophil Count 3.6 X10^3/uL (2.0-7.7); Basophil# 0.03 X10^3/uL; Basophil% 0.5 % (0-1); Eosinophils% 5.3 % (0-5); Hematocrit 35.6 % (37-47); Hemoglobin 11.4 g/dL (12.0-15.0); Lymphocyte # 1.26 X10^3/ul (0.83-4.51); Lymphocyte % 22.1 % (19-41); Mean Corpuscular Hgb 29.1 pg (27.0-32.0); Mean Corpuscular Volume 90.8 fL (81-99); Mean Platelet Vol. 8.7 fl (6.2-12.0); Monocyte# 0.46 X10^3/uL; Monocyte% 8.1 % (0-10); NRBC Flagged by Analyzer 0 % (0-5); Neutrophil # 3.61 X10^3/uL (2.7-7.7); Neutrophil % 63.5 % (47-70); Platelet Count 374 K/mm3 (150-450); RBC Distribution Width CV 14.1 % (11.6-14.6); RBC Distribution Width SD 47.2 fl (35.1-43.9); Red Blood Count 3.92 M/mm3 (4.2-5.4); White Blood Count 5.7 K/mm3 (4.4-11.0)
[2021-05-10 12:51] LABS: ALB/GLOB Ratio 0.8 RATIO (0.9-2.4); AST(SGOT) 16 U/L (15-37); Alanine Aminotransfer ALT/SGPT 15 U/L (13-56); Albumin, Serum 3.5 g/dL (3.2-5.0); Alkaline Phosphatase 119 U/L (45-117); Anion Gap 5 (5-15); BUN 17 mg/dL (7-18); BUN/Creat Ratio 17.2 RATIO (10-20); Calcium,Total 8.9 mg/dL (8.5-10.1); Chloride 102 mmol/L (98-107); Cholesterol 281 mg/dL (200); Creatinine, Serum 0.99 mg/dL (0.55-1.02); EST Glomerular Filtration Rate 59 mL/min (>60); Est Glom Filt Rate - Afr Amer 72 mL/min (>60); Globulin 4.5 g/dL (2.2-4.2); Glucose 101 mg/dL (74-106); High Density Lipoprotein 45 mg/dL; Potassium 3.9 mmol/L (3.5-5.1); Sodium Level 136 mmol/L (136-145); Triglycerides 363 mg/dL; Very Low Density Lipoprotein 73 mg/dL (5-40)
== END 2021-05-10 23:59 | disposition home or self-care (01) ==
LOC: MTLAB 10:09
PROVIDERS: PCP Internal Medicine; Referring Provider Internal Medicine; Visit Provider Internal Medicine
DX: I12.9 Hypertensive chronic kidney disease with stage 1 through stage 4 chronic kidney disease, or unspecified chronic kidney disease (principal); N18.30 Chronic kidney disease, stage 3 unspecified
CPT/HCPCS: 36415; 80053; 80061; 85025

== ENCOUNTER 2021-05-27 15:28 | Outpatient (CLI) | payer OTHER, SELFPAY ==
--- NOTE | 2021-05-27 15:32 | BI_ITS ---
MAMMOGRAPHY - BILATERAL SCREENING REASON FOR EXAM: Female, 70 years old. Routine annual screening examination. PERTINENT HISTORY: Non-contributory. TECHNIQUE: Digital bilateral breast isis (3D mammographic acquisition) in the CC and MLO projections. 2-D mediolateral oblique (MLO) and craniocaudad (CC) views of both breasts were obtained. CAD: Full Field Digital Mammography with Computer Added Detection was performed. COMPARISON: No comparison mammograms available at this time. If any prior films become available, an addendum to this report can be generated. FINDINGS: Breast Composition: There are scattered areas of fibroglandular density. There are no dominant masses or suspicious calcifications. There is a 4.6 mm well-defined nodule in the inferior medial aspect of the right breast. A similar appearing nodule measuring 3 mm is seen in the superior anterior aspect of the right breast. Correlation with ultrasound is recommended. Benign-appearing lymph nodes. No other significant abnormalities are identified. BI/SCRN MAMM (CAD)W/ISIS BILAT IMPRESSION: 4.6 mm well-defined nodule in the inferior medial aspect of the right breast as well as a 3 mm nodule in the superior anterior aspect of the right breast. Correlation with ultrasound is recommended. ASSESSMENT CATEGORY: BIRADS Category 0: Incomplete. Need additional imaging evaluation. A letter regarding these results will be sent to the patient by the facility within 30 days. Approximately 10% of breast cancers are not detected by mammography. A normal mammogram should not delay biopsy of a clinically suspicious abnormality. [id number] Electronically Signed: Beau Campos MD at 7:53 EDT ,
--- NOTE | 2021-05-27 15:34 | BD_ITS ---
STUDY: DUAL ENERGY X-RAY ABSORPTIOMETRY / DXA REASON FOR EXAM: Female, 70 years old. Post menopausal TECHNIQUE: Bone Mineral Density (BMD) measurements of lumbar spine and left hip were obtained. COMPARISON: None. FINDINGS: Lumbar Spine (L1-L4): g/cm2 (1.194) / T-score (1.5) / Z-score (3.5) Findings are suggestive of normal bone density with a low fracture risk. Left Femur Total: g/cm2 (0.700) / T-score (-2.0) / Z-score (-0.5) Left Femoral Neck: g/cm2 (0.414) / T-score (-3.9) / Z-score (-2.2) BD/Dexa Bone Density Study IMPRESSION: The patient is considered osteoporotic as outlined below according to World Godwin Organization (WHO) criteria with a high fracture risk. Reference Information: The T-score is the number of standard deviations above or below the standard which is normal for young adults at their peak bone mineral density. The World Health Organization (WHO) interprets the T-scores as follows: Above -1 Normal bone density Between -1 and -2.5 Osteopenia Equal to / or below -2.5 Osteoporosis As a practical clinical guideline, osteopenia may be graded as follows: Mild -1 through -1.5 Moderate -1.6 through -2.0 Severe -2.1 through -2.4 The Z-score is the number of standard deviations above or below age-matched controls. A Z-score of less than -1.5 would be considered abnormal. References: 1. NIH Osteoporosis and Related Bone Diseases www osteo.org 2. International Society for Clinical Densitometry www iscd.org 3. National Osteoporosis Foundation www nof.org Electronically Signed: Beau Campos MD at 14:44 EDT ,
== END 2021-05-27 23:59 | disposition home or self-care (01) ==
LOC: OPBI 15:29
PROVIDERS: PCP Internal Medicine; Visit Provider Internal Medicine
DX: Z12.31 Encounter for screening mammogram for malignant neoplasm of breast (principal); Z78.0 Asymptomatic menopausal state
CPT/HCPCS: 77063; 77067; 77080

== ENCOUNTER → 2021-06-02 | Outpatient (CLI) | payer OTHER, SELFPAY ==
--- NOTE | 2021-06-02 14:29 | US_ITS ---
STUDY: ULTRASOUND BREAST - RIGHT REASON FOR EXAM: Female, 70 years old. Abnormal screening mammogram. TECHNIQUE: Axial and longitudinal images of the RIGHT breast were performed with a high resolution ultrasound transducer. # OF IMAGES: 87 COMPARISON: 05/27/2021 FINDINGS: RIGHT Breast: Heterogeneous background echotexture. At 12 o''clock, 2 cm from nipple, ultrasound confirms a 3 mm oval parallel circumscribed anechoic mass with no posterior features which may represent a small cyst or intramammary lymph node. At 4 o''clock, 3 cm from nipple, ultrasound confirms a 5 mm oval parallel microlobulated hypoechoic mass with central increased echogenicity consistent with an intramammary lymph node. At 10 o''clock, 6 cm nipple, ultrasound confirms an 8 mm oval parallel circumscribed hypoechoic mass with central increased echogenicity consistent with an intramammary lymph node.: US/Breast Limited Unilateral IMPRESSION: Benign breast ultrasound with small cysts and intramammary lymph nodes. ASSESSMENT CATEGORY: BIRADS Category 2: Benign. A letter regarding these results will be sent to the patient by the facility within 30 days. Electronically Signed: Wilfredo Moore MD at 15:44 EDT ,
== END | disposition home or self-care (01) ==
LOC: OPUS 14:28
PROVIDERS: PCP Internal Medicine; Visit Provider Physician Assistant
DX: N63.10 Unspecified lump in the right breast, unspecified quadrant (principal); R92.8 Other abnormal and inconclusive findings on diagnostic imaging of breast
CPT/HCPCS: 76642

== ENCOUNTER → 2021-11-02 | Outpatient (CLI) | payer OTHER, SELFPAY ==
[2021-11-02 15:15] LABS: Absolute Neutrophil Count 3.4 X10^3/uL (2.0-7.7); Basophil# 0.03 X10^3/uL; Basophil% 0.5 % (0-1); Eosinophil# 0.56 X10^3/uL; Eosinophils% 9.9 % (0-5); Hematocrit 35.3 % (37-47); Hemoglobin 10.8 g/dL (12.0-15.0); Lymphocyte % 19.4 % (19-41); Mean Corp Hgb Conc 30.6 g/dL (32-36); Mean Corpuscular Hgb 28.7 pg (27.0-32.0); Mean Corpuscular Volume 93.9 fL (81-99); Mean Platelet Vol. 8.9 fl (6.2-12.0); Monocyte# 0.57 X10^3/uL; Monocyte% 10.1 % (0-10); NRBC Flagged by Analyzer 0 % (0-5); Neutrophil # 3.37 X10^3/uL (2.7-7.7); Neutrophil % 59.4 % (47-70); Platelet Count 334 K/mm3 (150-450); RBC Distribution Width CV 15.1 % (11.6-14.6); RBC Distribution Width SD 52.7 fl (35.1-43.9); Red Blood Count 3.76 M/mm3 (4.2-5.4); White Blood Count 5.7 K/mm3 (4.4-11.0)
[2021-11-02 15:38] LABS: Anion Gap 8 (5-15); BUN 15 mg/dL (7-18); BUN/Creat Ratio 15.6 RATIO (10-20); Calcium,Total 9.1 mg/dL (8.5-10.1); Chloride 107 mmol/L (98-107); Creatinine, Serum 0.96 mg/dL (0.55-1.02); EST Glomerular Filtration Rate 61 mL/min (>60); Est Glom Filt Rate - Afr Amer 74 mL/min (>60); Glucose 98 mg/dL (74-106); Potassium 3.8 mmol/L (3.5-5.1); Sodium Level 141 mmol/L (136-145)
== END | disposition home or self-care (01) ==
LOC: MTRAD 13:10 → MTLAB 13:11
PROVIDERS: PCP Internal Medicine; Referring Provider Internal Medicine; Visit Provider Internal Medicine
DX: K21.9 Gastro-esophageal reflux disease without esophagitis (principal); N18.30 Chronic kidney disease, stage 3 unspecified
CPT/HCPCS: 36415; 80048; 85025

== ENCOUNTER → 2022-02-22 | Outpatient (CLI) | payer MEDICARE, SELFPAY ==
--- NOTE | 2022-02-22 12:44 | CT_ITS ---
EXAM: CT LEFT LOWER EXTREMITY WITHOUT INTRAVENOUS CONTRAST CLINICAL INDICATION: PRIMARY OSTEOARTHRITIS. PRE-OP FOR SANDRA REPLACEMENT TECHNIQUE: Helically acquired images were obtained of the left lower extremity without intravenous contrast. 2-D reformats were performed by the technologist. CTDIvol = ( 18.54 ) mGy, DLP = ( 1291.03 ) mGycm This CT exam was performed using one or more of the following dose reduction techniques: automated exposure control, adjustment of the mA and/or kV according to patient size, and/or use of iterative reconstruction technique. This report was created using [employer] report [employer] technology. COMPARISON: None. FINDINGS: BONES/JOINTS: Chronic osteochondral lesion measuring approximately 5 mm at the lateral talar dome. 3.5 x 0.9 cm cystic lesion along the medial collateral ligament is concerning for bursitis. Severe tricompartmental osteoarthrosis involving the knee with mild lateral subluxation of the tibia relative to the femur. Moderate osteoarthrosis involving the left hip and left ankle. Mild to moderate degenerative changes involving the left SI joint. No acute or healing fracture or malalignment. No unusual lytic or sclerotic lesions of bone. SOFT TISSUES: See above. Moderate suprapatellar joint effusion. Diffuse subcutaneous edema about the ankle/distal lower extremity. Severe atrophy involving the left gluteus minimus and medius muscles. OTHER FINDINGS: No soft tissue lung masses. Incidental finding of the distal colonic diverticulosis without acute diverticulitis. Decompressed appearance of the bladder. Multiple phleboliths in the pelvis. CT/Extremity Lower without Contra IMPRESSION: 1. Preoperative planning study with demonstration of severe tricompartmental osteoarthrosis involving the left knee. 2. Moderate suprapatellar joint effusion with 3.5 x 0.9 cm cystic lesion along the medial collateral ligament is concerning for bursitis. Electronically Signed: Michael Mix MD at 22:38 EST ,
== END | disposition home or self-care (01) ==
LOC: CT 12:38
PROVIDERS: PCP Internal Medicine; Visit Provider Orthopaedic Surgery
DX: M17.12 Unilateral primary osteoarthritis, left knee (principal)
CPT/HCPCS: 73700

== ENCOUNTER 2022-03-07 21:06 | Observation (INO) | payer MEDICARE, SELFPAY ==
--- NOTE | 2022-02-22 12:36 | EKG12_ITS ---
Test Reason : PREOP Blood Pressure : / mmHG Vent. Rate : 096 BPM Atrial Rate : 096 BPM P-R Int : 146 ms QRS Dur : 084 ms QT Int : 332 ms P-R-T Axes : 039 038 036 degrees QTc Int : 419 ms Normal sinus rhythm Normal ECG Confirmed by JOSHUA OLMEDO, RICO ([id number]), film editor PIETER BROWN ([id number]) on 02/23/2022 10:32:31 AM Referred By: BRNET Confirmed By:RICO LEWIS MD
[2022-02-22 13:39] LABS: Absolute Lymphocyte Count 1.41 X10^3/uL (0.83-4.51); Absolute Neutrophil Count 4.3 X10^3/uL (2.0-7.7); Basophil# 0.03 X10^3/uL; Basophil% 0.5 % (0-1); Eosinophil# 0.24 X10^3/uL; Eosinophils% 3.8 % (0-5); Hematocrit 37.4 % (37-47); Hemoglobin 11.2 g/dL (12.0-15.0); Lymphocyte # 1.41 X10^3/ul (0.83-4.51); Lymphocyte % 22.2 % (19-41); Mean Corp Hgb Conc 29.9 g/dL (32-36); Mean Corpuscular Hgb 28.2 pg (27.0-32.0); Mean Corpuscular Volume 94.2 fL (81-99); Mean Platelet Vol. 8.6 fl (6.2-12.0); Monocyte# 0.37 X10^3/uL; Monocyte% 5.8 % (0-10); NRBC Flagged by Analyzer 0 % (0-5); Neutrophil # 4.25 X10^3/uL (2.7-7.7); Neutrophil % 66.8 % (47-70); Platelet Count 359 K/mm3 (150-450); RBC Distribution Width CV 14.9 % (11.6-14.6); RBC Distribution Width SD 52.1 fl (35.1-43.9); Red Blood Count 3.97 M/mm3 (4.2-5.4); White Blood Count 6.4 K/mm3 (4.4-11.0)
[2022-02-22 13:47] LABS: Hemoglobin A1c 6.2 % (3.8-5.6)
[2022-02-22 13:56] LABS: Magnesium 2.1 mg/dL (1.6-2.6)
[2022-02-22 14:02] LABS: Albumin, Serum 3.4 g/dL (3.2-5.0); Anion Gap 9 (5-15); BUN 19 mg/dL (7-18); BUN/Creat Ratio 19.3 RATIO (10-20); Calcium,Total 9.2 mg/dL (8.5-10.1); Chloride 103 mmol/L (98-107); Creatinine, Serum 0.98 mg/dL (0.55-1.02); EST Glomerular Filtration Rate 59 mL/min (>60); Est Glom Filt Rate - Afr Amer 72 mL/min (>60); Glucose 144 mg/dL (74-106); Potassium 3.8 mmol/L (3.5-5.1); Sodium Level 139 mmol/L (136-145)
[2022-03-07] VITALS (15 sets, daily range): BP systolic 87–138; BP diastolic 47–80; PULSE 75–118; RESP 16–17; TEMP 36.4–37; O2SAT 93–100; BMI 36.9; BMI 37.0
--- NOTE | 2022-03-07 | KNEE_PTH ---
PATIENT: INESSA SARAH LOC: MS3 U#:[id number] AGE/SX: 71/F ROOM: [facility] [place]03[place]07/[address]: Dr. Omari Gamez DO : 1950 BED: 1 DIS: 03/08/2022 SPEC #: [id number] RECD: 03/07/22 16:41 STATUS: SHAINA REEmily #: [id number] POLLO: 03/07/22 00:[address]: Omari Gamez DEPT: SURGICAL PATHOLOGY RECD BY: Marcio Millan ENTERED: 03/08/22 11:13 SP TYPE: TOTAL KNEE OTHR DR: Dr. Gemini Rodriguez MD Tissues: Knee, NOS Procedures: Decalcification bone/plaque Surgery Specimen Level IV HEADER OPERATION: ERAS, total knee replacement robotic arm assist PRE-OP DIAGNOSIS: Varus deformity left knee, osteoarthritis TISSUE SUBMITTED: Bone and soft tissue left knee MICROSCOPIC DIAGNOSIS Bone and tissue of left knee, total knee resection: Severe degenerative joint disease. AM:ron 03/11/2022 MICROSCOPIC DESCRIPTION Slides are reviewed. GROSS DESCRIPTION Received is one container designated bone and soft tissue left knee. The specimen consists of multiple fragments of kyle-yellow bone measuring in aggregate 10 x 9 x 3 cm. No soft tissue is identified. A number of bony fragments contain articular surfaces consistent with tibial plateau and femoral condyle and displaying prominent osteophyte formation, eburnation, and bone erosion. Dye Reel Operator Helper sections are submitted in one cassette after decalcification. / SJ:ron 03/08/2022 TC:5 CPT: 75589, 73714
--- NOTE | 2022-03-07 10:55 | RAD_ITS ---
INDICATION: post op EXAMINATION/TECHNIQUE: X-RAY - LEFT XR Knee 1 or 2 Views 2 VIEWS COMPARISON: None. FINDINGS: SOFT TISSUES: Anterior knee swelling with gas density in the joint space deep to the patella. Skin winter over the knee anteriorly. Knee prosthesis in expected alignment. BONES/JOINTS: No acute fracture. . No sclerotic or destructive changes observed. RAD/Knee 1 or 2 Views IMPRESSION: Status post left knee replacement. Electronically Signed: Josue Perez MD at 19:46 EST ,
[2022-03-07] MEDS: Lactated Ringers 1,000 ML 15 ML IV (11:05)
[2022-03-07] MEDS: Acetaminophen 500 MG Tablet 1000 MG PO ×3 (11:38→22:37)
[2022-03-07] MEDS: Gabapentin 600 MG Tablet PO (11:38)
[2022-03-07 11:40] LABS: Bedside Glucose 114 mg/dL (74-106)
[2022-03-07] MEDS: Cefazolin 2 GM in 0.9% Normal Saline 100 ML IV (13:37)
[2022-03-07] MEDS: TXA 1000mg in NS100 100ml (IVPB at Incision) 660 MG IV (13:47)
[2022-03-07] MEDS: Lactated Ringers 1,000 ML 999 ML IV (14:21)
[2022-03-07] MEDS: TXA 1000mg in NS100 100ml (IVPB at Closure) 660 MG IV (14:58)
--- NOTE | 2022-03-07 15:01 | PCM.OPRPT ---
Report of Operation Date of Procedure: 03/07/22 Pre-Operative Diagnosis: OA left knee Post-Operative Diagnosis: same Surgery/Procedure Performed:: Left TKR Description of Surgical Findings:: Report of Operation Date of Procedure: 03/07/2022 Preoperative Diagnosis: [Left ] knee primary osteoarthritis Postoperative Diagnosis: [Left ] knee primary osteoarthritis Operation: Robotic Assisted Knee Total Arthroplasty, [ Left ] knee Surgeon: Dr Omari Gamez DO Sql Engineer: Ronnie Monte PA-C Anesthesia: spinal Anesthesiologist: Andrew Hobson M.D. Findings: Stable knee with good patella tracking Specimen(s): Bony cuts Complications: No intraoperative complications Estimated Blood Loss: 20 cc IV Fluids: 1000 cc crystalloid Implants Used: 1. [employer] press fit CR size 3 femur 2. [employer] size 3 tibia 3. 29 mm patella 4. 10 mm CS polyethylene Brief History Operative Indications: [ (71 y/o female) ] with history of [ left ] knee osteoarthrosis with radiographic findings with loss of joint space, osteophyte formation and subchondral sclerosis. Failed conservative measures as mentioned in the H&P. Discussion of total knee arthroplasty as well as risk and benefits were discussed with the patient including but not limited to blood loss, DVTs, PEs, neurovascular damage, general risk of anesthesia including loss of life, and stiffness or instability were also discussed with the patient. Patient demonstrated understanding and was able to sign informed consent. Procedure: On the date of procedure, patient's [ left ] lower extremity was marked in the preoperative area. The patient was then taken back to the operating room where that patient was placed on the table in the supine position. All bony prominences were identified and well-padded. Anesthesia assumed control of the C-spine and airway throughout the remainder of the procedure. A tourniquet was placed on the [ left ] upper thigh and the leg was prepped in a sterile fashion. The surgeon then scrubbed at this time. Upon reentering the room, the [left ] lower extremity was draped in a standard orthopedic fashion. A timeout was then called and everyone agreed upon the side, the site, the procedure to be performed, patient's identity and antibiotics given. Esmarch bandage was used to exsanguinate the extremity and the tourniquet was placed up to 250 mmHg with the knee in flexion. A midline skin incision was made and a sharp dissection was taken down through skin, subcutaneous tissue and fat. The standard medial parapatellar incision was made and the patella was subluxed laterally. An appropriate deep MCL release was done and the fat pad was resected. Our attention was then directed to the patella. The patella was everted and a flat resection was made. The knee was then flexed up and 2 femoral pins were placed inside the incision and 2 tibial pins were placed outside the incision in the medial tibia bicortically. Once this was completed, the 2 checkpoints in the femur and tibia were placed. Knee was then flexed up and the bony landmarks were registered. Once the was completed, the knee taken through range of motion and manually stressed allowing us to plan for an appropriate tibial cut. The robotic arm was brought into the field sterilely and checkpoint and saw were registered. Based on the patient's deformity, the tibial cut was made in [ 2 degrees varus ]. At this time, the tensioner was then placed in the joint and ligament tension was checked at 90 degrees and full extension. Based on the patient's ligamentous tension, appropriate adjustments were made to the operative plan and ligament releases were done. Once we were happy with our operative plan with balanced flexion and extension gaps, our attention was directed to the femur. The robot was brought into the field sterilely and registered. Posterior condylar cuts, anterior chamfer cuts and anterior cuts were appropriately made for a [size 3 ] femur. When these were completed, the saws were switched out in the distal femoral and posterior chamfer cuts were made. Protecting the soft tissue throughout this time. A [size 3] base plate was selected. The knee was flexed to 90 degrees and soft tissues and posterior osteophytes were removed from the joint. 40 cc of the periarticular injection was injected into the posterior medial corner of the joint. The appropriate trials were then placed on the femur and tibia. A trial polyethylene was trialed to ensure proper balancing and stability of the knee. The appropriate tibial internal rotation was then marked with a bovie. Our attention was then directed to the patella. The lug holes were drilled and the patella trial was placed. Patellar tracking was checked and deemed appropriate. Once we were happy, lug holes were drilled for the femur and trial components were removed. The tibia was subluxed and pinned into place and the keel was punched and drilled appropriately. Final components were verified and opened. The wound was copiously irrigated with normal saline. The components were impacted into place with the tibia, femur and finally the patella. The trial poly component was placed and the knee was placed in full extension. The tracking, alignment and balance were verified and a [10 mm CS ] polyethylene component was placed. Once the final components were placed an Irrisept lavage was performed and the wound was copiously irrigated with normal saline solution and the periarticular injection was given. the wound was closed in a layer-buchanan fashion using #1 vicryl interrupted sutures for the arthrotomy, 2-0 interrupted vicryl suture for the subcuticular layer and winter for final skin closure. A sterile compressive dressing was then placed. The patient was then awakened from anesthesia, transferred to the rligonier and transferred to the PACU for recovery. My physician staff physical therapy assistant was a vital part of this case. He was important in appropriate retraction during the case, and protection of soft tissues during bony cuts. His intimate knowledge of the case and my steps aided in safe and expedient completion of the procedure as well as appropriate position of the leg during the case. He was also vital in assisting with closure under my direct supervision. Due to the complexity of this case, robotic arm was used to assist in the surgery to improve accuracy and clinical outcomes. Post-op Plan: DVT ppx; ASA 81 mg BID, thigh high compression stockings Follow up: in office in 2 weeks for wound check PT: to start POD #0 at hospital, outpatient PT should be arranged. Preoperative antibiotic: Ancef 2 grams IV Omari Gamez DO Surgeon: Omari Gamez building code administrator: Ronnie Monte Type of Anesthesia: Spinal Anesthesiologist: Andrew Hobson Specimen's removed: bone Drains: none Estimated Blood Loss (mL): 20 cc Fluids Replaced: 1000 cc crystalloid Admit VTE Documentation VTE Present on Admission: No VTE Mechan Device Prophylaxis: SCD's and Thigh High WANDA Hose VTE Pharm Prophylaxis ordered?: Yes
--- NOTE | 2022-03-07 20:59 | SUR.PHASEII ---
AT APPROXIMATELY 1900, SAT PATIENT AT SIDE OF BED TO DANGLE LEGS. PATIENT IS DROWSY. ASSISTED TO STAND AT SIDE OF BED WITH HELP OF 2 RNs AND USE OF WALKER. PATIENT IS UNSTEADY ON HER FEET. ASSISTED BACK TO BED. PHYSICAL THERAPIST CALLED AND ASKED TO COME EVALUATE PATIENT FOR ABILITY TO GO HOME. ASKING ABOUT HOME GOING PRESCRIPTIONS. NO PRESCRIPTIONS ORDERED BY DR KENNEDY. DR KENNEDY CALLED.
--- NOTE | 2022-03-07 21:04 | SUR.PHASEII ---
AT APPROXIMATELY 1920, THE PHYSICAL THERAPIST ATTEMPTED TO AMBULATE THE PATIENT WITH THE ASSISTANCE OF A WALKER. PATIENT WAS VERY DROWSY AND WEAK. PATIENT WAS UNABLE TO PERFORM EXERCISES. PHYSICAL THERAPIST RECOMMENDED PATIENT STAY OVERNIGHT. DR. KENNEDY CALLED AND ORDERS RECEIVED FOR PATIENT TO SPEND THE NIGHT.
[2022-03-07] MEDS: Cefazolin 1 GM/50 ML BAG IV (22:19)
[2022-03-07] MEDS: 0.9% Normal Saline 1,000 ML 100 ML IV (22:20)
--- NOTE | 2022-03-07 22:35 | NURSING ---
Patient ambulated with walker to bathroom
[2022-03-08 01:42] VITALS: BP 116/61; PULSE 75; RESP 15; TEMP 36.4; O2SAT 96
[2022-03-08 05:56] VITALS: BP 137/65; PULSE 87; RESP 17; TEMP 36.4; O2SAT 93
[2022-03-08] MEDS: Cefazolin 1 GM/50 ML BAG IV (06:02)
[2022-03-08] MEDS: Acetaminophen 500 MG Tablet 1000 MG PO ×2 (06:02→13:28)
--- NOTE | 2022-03-08 07:51 | PCM.PN.ORT ---
Subjective Subjective Patient lying in bed. States pain has been well managed. Denies chest pain, shortness of breath, calf pain, nausea vomiting. No other complaints. Ready for discharge home. Objective Data Objective Data Vital Signs: Vital Signs Temp Pulse Resp BP Pulse Ox O2 Del Method O2 Flow Rate 97.6 F L 87 17 137/65 H 93 Room Air 4 03/08/22 05:56 03/08/22 05:56 03/08/22 05:56 03/08/22 05:56 03/08/22 05:56 03/08/22 05:56 03/07/22 17:30 Oxygen Flow Rate (L/min) 4 Oxygen Delivery Method Room Air Weight: 86.1 kg Body Mass Index (BMI) 37.0 Intake & Output: Intake and Output for Last 24 Hours 03/06/22 03/07/22 03/08/22 23:59 23:59 23:59 Intake Total 2482 / 2632 150 / 150 Balance 2482 / 2632 150 / 150 Lab / Micro Data Result Diagrams: 02/22/22 13:08 02/22/22 13:08 Labs: Laboratory Results - last 24 hr 03/07/22 11:09: POC Glucose 114 H Micro: Microbiology 02/22/22 13:08 Swab (Method) Nasal Screen MRSA/MSSA - Final Radiography Diagnostic Testing: Radiology Impression Knee X-Ray 03/07/22 10:55 IMPRESSION: Status post left knee replacement. Electronically Signed: Josue Perez MD at 19:46 EST , Physical Exam Narrative Exam patient is laying in bed. Alert oriented. No respiratory distress, speaking in full sentences. Moving upper extremities with no limitations good muscle tone and strength. Exam of the left knee dressing was clean dry intact. No calf tenderness. Neurologically intact. Const alert and oriented x3 General Appearance: cooperative and well developed HEENT normocephalic Eyes PERRL Resp normal respiratory effort Effort and Inspection: able to speak in complete sentences Extremity normal capillary refill Skin no rashes or lesions noted Neuro CN's II-XII intact bilaterally Speech: speech abnormal Psych mental status grossly normal and affect normal Assessment & Plan Assessment/Plan (1) Status post total left knee replacement not using cement: PLAN: 1. Continue all pain medications as prescribed 2. Aspirin 81 mg 1 p.o. every 12 hours x30 days for postop DVT prophylaxis 3. Encourage incentive spirometry 4. Discharge home after a.m. therapy 5. Patient will continue outpatient physical therapy at [facility] [place]. 6. Follow-up as scheduled
--- NOTE | 2022-03-08 07:55 | DCINST_ITS ---
Discharge Instructions Diet Discharge Diet: No restrictions Activity Discharge Activity: May Not Drive, May Shower and Use Walker May shower in (days): 3 May resume sexual activity in: No Restrictions Ice area for (Minutes): 30 Weight Bearing Status: Weight bearing as tolerated Keep extremity elevated above heart level: Operative Extremity Dressing / Incision Call your doctor if your incision/area has: Continuous Slow Oozing, Sudden Increased Bleeding, Increased Pain/ Swelling and Increased Redness Call your doctor if you observe: Fever of 101 or Higher Change Dressing in: leave in place till F/U Remove Dressing in: leave in place till F/U Follow Up Care Please Follow Up With: Omari Gamez DO When: As scheduled Test Results: Test results from this visit will be discussed in further detail at your follow- up appointment, if applicable. Discharge Plan Admission Admit Date/Time: 03/07/22 21:06 Primary Reason for Your Visit: Left total knee arthroplasty Attending Provider: Omari Gamez Primary Care Provider: Gemini Rodriguez Discharge Orders/Prescriptions Prescriptions: New acetaminophen 500 mg Tablet 1,000 mg PO Q8 30 Days Qty: 180 0RF oxycodone 5 mg Tablet 5 - 10 mg PO Q6H PRN PRN (Reason: Pain Score 4-10) 7 Days Qty: 60 0RF Continued ferrous sulfate 325 mg (65 mg iron) tablet 325 mg PO DAILY Qty: 90 2RF calcium carbonate [Calcium 600] 600 mg calcium (1,500 mg) tablet 600 mg PO BID cholecalciferol (vitamin D3) 50 mcg (2,000 unit) capsule 50 mcg PO DAILY meloxicam 15 mg tablet 15 mg PO DAILY PRN (Reason: pain) Qty: 60 1RF Hold Instructions: Hold until after you have seen Dr. Gandhi Rx Instructions: take 1-2x monthly for pain. oxybutynin chloride 5 mg tablet extended release 24hr 5 mg PO QHS omeprazole 40 mg capsule,delayed release(DR/EC) 40 mg PO DAILY Qty: 90 1RF Discontinued acetaminophen [Tylenol] 325 mg Tablet 650 mg PO Q4H PRN (Reason: Pain) acetaminophen [Tylenol Arthritis] 650 mg Tablet Extended Release 650 mg PO Q12H PRN (Reason: Pain) Referrals / Follow Up: Gemini Rodriguez MD [Primary Care Provider] - Disposition Disposition (needs filled in before D/C Order can be placed): Home, Self Care
[2022-03-08 08:23] VITALS: BP 132/83; PULSE 80; RESP 18; TEMP 36.8; O2SAT 100
[2022-03-08] MEDS: Aspirin 81 MG TAB.CHEW PO (08:33)
--- NOTE | 2022-03-08 10:45 | CASEMGMT ---
SHAWNA MOBLEY Assessment: Face to Face with pt for initial transition planning/care coordination assessment. SHAWNA MOBLEY introduced self and role at [facility], pt voices understanding and consents to assessment. Pt is A/O x4 and answers all questions appropriately at this time. Pt sitting up in chair, just finished therapy. Care providers, pharmacy, and demographics verified/updated. Admitting Dx: Left total knee arthroplasty PCP:Jennifer Specialists:deanna Gamez; taye Gandhi; Flavio, FOUNDRY METALLURGIST Preferred Pharmacy: [facility] Retail, to brick picker meds Insurance: [employer] Dx [facility] Prescription Benefit: yes LNOK: Surendra Campos, Living Arrangements: Pt lives with in a two story home with 3-4 steps to enter with a rail on both sides. Pt reports she was I in ADL's prior to surgery. Pt denies concerns at home. Transportation: Pt drives self and denies concerns with transportation. Pt will transport pt until she can drive again. DME/HHC/SNF: Pt has a cane and FWW at home. Pt was using the cane prior to surgery d/t knee buckling. Pt denies hx of HHC or SNF stays. Pt states no concerns with going home at time of dc. She has outpt therapy set up at [facility] to start tomorrow. Pt states no further concerns/needs. CM to follow. Advised pt to ask CM if any further question/concerns/needs arise, voices understanding. Pt Goal: Home with outpt therapy set up Plan: Home with outpt therapy set up
[2022-03-08 13:24] VITALS: BP 131/60; PULSE 100; RESP 18; TEMP 36.9; O2SAT 100
== END 2022-03-08 13:40 | disposition home or self-care (01) ==
PROVIDERS: Anesthesiology; Admitting Provider Orthopaedic Surgery; PCP Internal Medicine; Referring Provider Orthopaedic Surgery; Visit Provider Orthopaedic Surgery
PROC: 0SRD0JZ Replacement of Left Knee Joint with Synthetic Substitute, Open Approach (ICD-10-PCS; CPT 27447; principal; 2022-03-07 13:00)
DX: M17.12 Unilateral primary osteoarthritis, left knee (principal); N18.30 Chronic kidney disease, stage 3 unspecified; R53.83 Other fatigue; D64.9 Anemia, unspecified; N39.3 Stress incontinence (female) (male); I12.9 Hypertensive chronic kidney disease with stage 1 through stage 4 chronic kidney disease, or unspecified chronic kidney disease; Z79.899 Other long term (current) drug therapy; K21.9 Gastro-esophageal reflux disease without esophagitis; E78.00 Pure hypercholesterolemia, unspecified; M21.162 Varus deformity, not elsewhere classified, left knee
CPT/HCPCS: 27447; S2900; 01402; 64447; 36415; 73560; 80048; 82040; 82962; 83036; 83735; 85025; 87081; 88305; 88311; 93005; 94668; 96361; 96365; 96366; 97110; 97116; 97162; 97530; 99252; C1776; J7030; J7120; G0463; J2405; J3475

== ENCOUNTER → 2022-04-20 | Outpatient (CLI) | payer MEDICARE, SELFPAY ==
--- NOTE | 2022-04-20 12:13 | US_ITS ---
STUDY: RENAL ULTRASOUND - COMPLETE REASON FOR EXAM: Female, 71 years old. UTI. TECHNIQUE: Ultrasound evaluation of the kidneys was performed with real-time and static condon-scale imaging. COMPARISON: Renal ultrasound, November 19, 2020. FINDINGS: RIGHT KIDNEY: Normal location of the right kidney, which is normal in size. The right kidney measures 10.6 cm. There is a normal cortex of the right kidney. The renal cortex measures 1.1 cm. There is no right renal mass or cyst. There are no right renal calculi. There is no right hydronephrosis. DISTAL RIGHT URETER: There is non-visualization of the distal right ureter. There is no demonstrated right ureterovesical junction calculus. There is no demonstrated right ureteral jet. LEFT KIDNEY: Normal location of the left kidney, which is normal in size. The left kidney measures 10.5 cm. There is a normal cortex of the left kidney. The renal cortex measures 1.3 cm. There is a 1.7 x 1.2 by 2.0 cm upper pole parapelvic renal cyst. There are no left renal calculi. There is no left hydronephrosis. DISTAL LEFT URETER: There is non-visualization of the distal left ureter. There is no demonstrated left ureterovesical junction calculus. There is no demonstrated left ureteral jet. BLADDER: The distended urinary bladder has a volume of 97 ml. There is a normal wall thickness of the distended urinary bladder. There is no demonstrated mass within the urinary bladder. There are no demonstrated bladder calculi. US/Kidney and Bladder IMPRESSION: 1. Left upper pole parapelvic renal cyst. This was not seen on previous study. Possibly dilated calyx cannot be entirely ruled out. 2. Normal right kidney urinary bladder. Electronically Signed: Steve Bradford DO at 20:38 EST Reading Location ID and State: [address] [place] [address] Tel [phone], Service support ,
== END | disposition home or self-care (01) ==
LOC: US 12:09
PROVIDERS: PCP Internal Medicine; Visit Provider Urology
DX: N39.0 Urinary tract infection, site not specified (principal)
CPT/HCPCS: 76770

== ENCOUNTER → 2022-04-21 | Outpatient (CLI) | payer MEDICARE, SELFPAY ==
[2022-04-21 15:24] LABS: ALB/GLOB Ratio 0.8 RATIO (0.9-2.4); AST(SGOT) 15 U/L (15-37); Alanine Aminotransfer ALT/SGPT 13 U/L (13-56); Albumin, Serum 3.5 g/dL (3.2-5.0); Alkaline Phosphatase 126 U/L (45-117); Anion Gap 7 (5-15); BUN 15 mg/dL (7-18); BUN/Creat Ratio 16.5 RATIO (10-20); Calcium,Total 9.2 mg/dL (8.5-10.1); Chloride 105 mmol/L (98-107); Cholesterol 263 mg/dL (200); Creatinine, Serum 0.91 mg/dL (0.55-1.02); EST Glomerular Filtration Rate 65 mL/min (>60); Est Glom Filt Rate - Afr Amer 79 mL/min (>60); Globulin 4.4 g/dL (2.2-4.2); Glucose 88 mg/dL (74-106); High Density Lipoprotein 42 mg/dL; Potassium 4.1 mmol/L (3.5-5.1); Protein, Total 7.9 g/dL (6.4-8.2); Sodium Level 139 mmol/L (136-145); Triglycerides 351 mg/dL; Very Low Density Lipoprotein 70 mg/dL (5-40)
[2022-04-21 16:20] LABS: Hemoglobin A1c 5.9 % (3.8-5.6)
[2022-04-21 20:17] LABS: Vitamin D,25 Hydroxy 29.6 ng/mL
== END | disposition home or self-care (01) ==
LOC: BIMLAB 13:56
PROVIDERS: PCP Internal Medicine; Referring Provider Internal Medicine; Visit Provider Internal Medicine
DX: I10 Essential (primary) hypertension (principal); E78.5 Hyperlipidemia, unspecified; R73.03 Prediabetes; M81.0 Age-related osteoporosis without current pathological fracture
CPT/HCPCS: 36415; 80053; 80061; 82306; 83036

== ENCOUNTER → 2022-05-11 | Outpatient (CLI) | payer MEDICARE, SELFPAY ==
--- NOTE | 2022-05-11 15:39 | SP.MBSS_ITS ---
Modified Barium Swallow - Patient Information Study Date: 05/11/22 Study Time: 13:00 Direct Billable Minutes: 120 Total Minutes procedure & reportin Diagnosis: K21. 9 Gastro-oesophageal reflux disease without oesophagitis. Referring Physician: Gemini Rodriguez Reason for Referral: Objectively assess swallow function, assess risk for aspiration, and determine recommendations for least restrictive diet textures and compensatory strategies to improve safety of swallow. Medical History: Henrietta Campos is a 71-year-old female with a history of anemia, bladder disease, borderline type 2 diabetes mellitus, CKD (chronic kidney disease), stage III, Colon cancer screening, heartburn, and HTN. See patient chart for full report. During an appointment with Dr. Rodriguez, on 04/21/22, patient reported concerns for an ongoing cough, which has been happening for months. See internal medicine visit note from 04/21/22 for full report. She reported coughing with food and liquids but does not bring up any food or liquids while coughing. No difficulty or pain on swallowing. Chronic history of reflux which for the most part is stable on omeprazole; although patient reported she did not take her medication prior to MBSS on 05/11/22. Patient reported she has postnasal drip, and sinus drainage throughout the day. Patient reports no past hx of PNA. Patient recommended for an MBSS to assess risk/presence of aspiration. Dentition: WNL Mental Status: WNL Respiratory Status: Oxygenating on Room Air - Penetration-Aspiration Scale Penetration-Aspiration Scale: OBJECTIVE ASSESSMENT OF SWALLOW FUNCTION (QUANTITATIVE ? PER TRIAL): PENETRATION / ASPIRATION SCALE (FLORES): 1 = does not enter airway 2 = enters airway/above vocal folds/ejected 3 = enters airway/above vocal folds/not ejected 4 = enters airway/contacts vocal folds/ejected 5 = enters airway/contacts vocal folds/not ejected 6 = enters airway/below vocal folds/ejected 7 = enters airway/below vocal folds/not ejected despite effort 8 = enters airway/below vocal folds/no effort VIDEOFLOROSCOPIC SCALE SCORE (FLORES): Grade I = aspiration of material that has penetrated into the laryngeal vestibule, intact cough reflex Grade II = aspiration < 10 % of the bolus, intact cough reflex Grade III = aspiration of < 10 % of the bolus, reduced cough reflex or aspiration of > 10 % of the bolus, intact cough reflex Grade IV = aspiration of > 10 % of the bolus, reduced cough reflex - Penetration-Aspiration Scale Score Thin Liquid via teaspoon Result: 1= does not enter airway Thin Liquid via teaspoon Trial 2 Result: 1= does not enter airway Thin Liquid via small single sip from cup Result: 1= does not enter airway [place] Thick Liquid via small single sip from cup Result: 1= does not enter airway Pudding via teaspoon w/esophageal screen Result: 1= does not enter airway 1/2 Cookie Result: 1= does not enter airway Thin Liquid via sequential sips from straw Result: 2= enter airway/above vocal folds/ejected Barium Tablet Result: 1= does not enter airway Thin Liquid via sequential sips from cup Result: 1= does not enter airway - Oral Phase Labial Seal: No Labial Escape Tongue Control During Bolus Hold: Posterior escape of greater than half of bolus Bolus Preparation/Mastication: Timely and efficient chewing and mashing Bolus Transport/Lingual Motion: Brisk tongue motion Oral Residue: Residue collection on oral structures - Pharyngeal Phase Initiation of Pharyngeal Swallow: Bolus head in pyriforms Soft Palate Elevation: Trace column of contrast/air between soft palate and pharyngeal wall Laryngeal Elevation: Partial superior movement thyroid cart/partial apprx aryt- epig petiole Anterior Hyoid Excursion: Partial anterior movement Epiglottic Movement: Complete inversion Laryngeal Vestibule Closure at Height of Swallow: Incomplete; narrow column of air/contrast in laryngeal vestibule Pharyngeal Stripping Wave: Present - complete Pharyngoesophageal Segment Opening: Complete distension and complete duration; no obstruction of flow Tongue Base Retraction: Narrow column of contrast between tongue base & post. pharyngeal wall Pharyngeal Residue: Trace residue within or on pharyngeal structures - Esophageal Phase Esophageal Clearance: Esophageal retention w/ retrograde flow below pharyngoesophageal seg. - Diagnosis/Impression Diagnosis: Mild Oropharyngeal Dysphagia (R13.12) Impression: The oral phase is primarily marked by...? -Decreased bolus control with >1/2 of the bolus spilling posteriorly to the pyriforms prior to swallow onset observed especially with large sequential sips. ? ? The pharyngeal phase is primarily marked by...? -Partial anterior hyoid excursion and decreased laryngeal elevation.? -Post prandial penetration, and delayed swallow onset, observed especially with sequential sips by straw and cup, place patient at risk for aspiration. ? The esophageal phase is primarily marked by...? -Esophageal retention of pudding in mid esophagus with retrograde flow remaining well below UES. This esophageal retention had minimally improved clearance when provided thin liquid wash.? -Osteophyte present at the level of C-5/C-6, which did not appear to impact b olus clearance through the UES. - Recommendations Diet: Regular Textures, Thin Liquids Comment: Dysphagia therapy not warranted at this time. Will recommend the patient to continue current diet with use of strategies. Recommended strategies include taking small bites/sips and to discontinue use of straws. ALTERATION TAILOR APPRENTICE educated patient on recommended strategies, and patient verbalized understanding.?ALTERATION TAILOR APPRENTICE requested the patient call to request swallowing treatment if concerns for worsening dysphagia or increased. Patient agreeable. Additionally, patient recommended to continue to follow with gas system operator to manage GERD.? Compensatory Strategies: Small Bites, Small Sips, No Straws, Slow Rate, Remain sitting upright for 30 minutes after PO intake Recommend Repeat Modified Barium Swallow: TBD Need for Skilled Speech Therapy Services: No Education Completed: 1. Described result of evaluation., 2. Pt understands evaluation & agrees with goals and treatment plan., 6. Family/caregivers demonstrate recommended strategies. - Status Active ST Patient: Active - Contact Information [facility] Speech Therapy:: Loren Silva Speech-Language Pathologist [facility] [address] [place] [address] [email or web address] [phone] 05/11/22 15:56
== END | disposition home or self-care (01) ==
LOC: RAD 13:08
PROVIDERS: PCP Internal Medicine; Referring Provider Internal Medicine; Visit Provider Internal Medicine
DX: T17.908A Unspecified foreign body in respiratory tract, part unspecified causing other injury, initial encounter (principal)
CPT/HCPCS: 74230; 92611

== ENCOUNTER → 2022-07-25 | Outpatient (CLI) | payer MEDICARE, SELFPAY ==
[2022-07-25 15:27] LABS: Absolute Lymphocyte Count 1.12 X10^3/uL (0.83-4.51); Absolute Neutrophil Count 3.3 X10^3/uL (2.0-7.7); Basophil# 0.03 X10^3/uL; Basophil% 0.6 % (0-1); Eosinophils% 5.8 % (0-5); Hemoglobin 10.6 g/dL (12.0-15.0); Lymphocyte # 1.12 X10^3/ul (0.83-4.51); Lymphocyte % 21.6 % (19-41); Mean Corp Hgb Conc 29.4 g/dL (32-36); Mean Corpuscular Hgb 26.7 pg (27.0-32.0); Mean Corpuscular Volume 90.7 fL (81-99); Mean Platelet Vol. 8.7 fl (6.2-12.0); Monocyte# 0.45 X10^3/uL; Monocyte% 8.7 % (0-10); NRBC Flagged by Analyzer 0 % (0-5); Neutrophil # 3.26 X10^3/uL (2.7-7.7); Neutrophil % 62.7 % (47-70); Platelet Count 361 K/mm3 (150-450); RBC Distribution Width CV 16.1 % (11.6-14.6); RBC Distribution Width SD 54.2 fl (35.1-43.9); Red Blood Count 3.97 M/mm3 (4.2-5.4); White Blood Count 5.2 K/mm3 (4.4-11.0)
[2022-07-25 15:38] LABS: Hemoglobin A1c 6.5 % (3.8-5.6)
[2022-07-25 15:48] LABS: Vitamin D,25 Hydroxy 32.3 ng/mL
[2022-07-25 16:08] LABS: ALB/GLOB Ratio 0.8 RATIO (0.9-2.4); AST(SGOT) 11 U/L (15-37); Alanine Aminotransfer ALT/SGPT 16 U/L (13-56); Albumin, Serum 3.3 g/dL (3.2-5.0); Alkaline Phosphatase 130 U/L (45-117); Anion Gap 7 (5-15); BUN 18 mg/dL (7-18); BUN/Creat Ratio 21.4 RATIO (10-20); Calcium,Total 8.9 mg/dL (8.5-10.1); Chloride 106 mmol/L (98-107); Cholesterol 248 mg/dL (200); Creatinine, Serum 0.84 mg/dL (0.55-1.02); EST Glomerular Filtration Rate 71 mL/min (>60); Est Glom Filt Rate - Afr Amer 86 mL/min (>60); Globulin 4.2 g/dL (2.2-4.2); Glucose 94 mg/dL (74-106); High Density Lipoprotein 43 mg/dL; Potassium 3.9 mmol/L (3.5-5.1); Protein, Total 7.5 g/dL (6.4-8.2); Sodium Level 139 mmol/L (136-145); Triglycerides 409 mg/dL
[2022-07-26 10:33] LABS: Ferritin 21 ng/mL (8-252); Iron 65 ug/dL (50-170); Iron Binding Capacity,Total 391 ug/dL (250-450)
== END | disposition home or self-care (01) ==
LOC: BIMLAB 14:18
PROVIDERS: PCP Internal Medicine; Visit Provider Internal Medicine
DX: I12.9 Hypertensive chronic kidney disease with stage 1 through stage 4 chronic kidney disease, or unspecified chronic kidney disease (principal); N18.30 Chronic kidney disease, stage 3 unspecified; K21.9 Gastro-esophageal reflux disease without esophagitis; E78.5 Hyperlipidemia, unspecified; M81.0 Age-related osteoporosis without current pathological fracture; D64.9 Anemia, unspecified; R73.03 Prediabetes
CPT/HCPCS: 36415; 80053; 80061; 82306; 82728; 83036; 83540; 83550; 85025

== ENCOUNTER → 2022-12-22 | Outpatient (CLI) | payer MEDICARE, SELFPAY ==
[2022-12-22 10:11] LABS: Cholesterol 176 mg/dL (200); High Density Lipoprotein 53 mg/dL; Triglycerides 159 mg/dL; Very Low Density Lipoprotein 32 mg/dL (5-40)
[2022-12-22 10:57] LABS: Hemoglobin A1c 6.5 % (3.8-5.6)
== END | disposition home or self-care (01) ==
PROVIDERS: PCP Internal Medicine; Visit Provider Internal Medicine
DX: E11.9 Type 2 diabetes mellitus without complications (principal)
CPT/HCPCS: 36415; 80061; 83036

== ENCOUNTER → 2023-01-25 | Outpatient (CLI) | payer MEDICARE, SELFPAY ==
[2023-01-25 15:37] LABS: Absolute Lymphocyte Count 1.07 X10^3/uL (0.83-4.51); Absolute Neutrophil Count 3.3 X10^3/uL (2.0-7.7); Basophil# 0.03 X10^3/uL; Basophil% 0.6 % (0-1); Eosinophil# 0.32 X10^3/uL; Eosinophils% 6.2 % (0-5); Hemoglobin 10.8 g/dL (12.0-15.0); Lymphocyte # 1.07 X10^3/ul (0.83-4.51); Lymphocyte % 20.8 % (19-41); Mean Corp Hgb Conc 29.2 g/dL (32-36); Mean Corpuscular Hgb 27.3 pg (27.0-32.0); Mean Corpuscular Volume 93.4 fL (81-99); Mean Platelet Vol. 8.9 fl (6.2-12.0); Monocyte# 0.42 X10^3/uL; Monocyte% 8.2 % (0-10); NRBC Flagged by Analyzer 0 % (0-5); Neutrophil # 3.28 X10^3/uL (2.7-7.7); Neutrophil % 63.8 % (47-70); Platelet Count 359 K/mm3 (150-450); RBC Distribution Width CV 15.4 % (11.6-14.6); Red Blood Count 3.96 M/mm3 (4.2-5.4); White Blood Count 5.1 K/mm3 (4.4-11.0)
[2023-01-25 16:11] LABS: ALB/GLOB Ratio 0.8 RATIO (0.9-2.4); AST(SGOT) 15 U/L (15-37); Alanine Aminotransfer ALT/SGPT 17 U/L (13-56); Albumin, Serum 3.4 g/dL (3.2-5.0); Alkaline Phosphatase 115 U/L (45-117); Anion Gap 6 (5-15); BUN 13 mg/dL (7-18); BUN/Creat Ratio 15.3 RATIO (10-20); Calcium,Total 8.7 mg/dL (8.5-10.1); Chloride 110 mmol/L (98-107); Creatinine, Serum 0.85 mg/dL (0.55-1.02); EST Glomerular Filtration Rate 70 mL/min (>60); Est Glom Filt Rate - Afr Amer 85 mL/min (>60); Globulin 4.1 g/dL (2.2-4.2); Glucose 105 mg/dL (74-106); Potassium 3.9 mmol/L (3.5-5.1); Protein, Total 7.5 g/dL (6.4-8.2); Sodium Level 142 mmol/L (136-145)
== END | disposition home or self-care (01) ==
LOC: BIMLAB 13:34
PROVIDERS: PCP Internal Medicine; Referring Provider Internal Medicine; Visit Provider Internal Medicine
DX: K21.9 Gastro-esophageal reflux disease without esophagitis (principal); E11.9 Type 2 diabetes mellitus without complications
CPT/HCPCS: 36415; 80053; 85025

== ENCOUNTER → 2023-05-22 | Outpatient (CLI) | payer MEDICARE, SELFPAY ==
--- NOTE | 2023-05-22 15:05 | RAD_ITS ---
STUDY: X-RAY - ABDOMEN/PELVIS REASON FOR EXAM: Female, 72 years old. History of bacteriuria. History of stones. TECHNIQUE: Two AP supine views of the abdomen and pelvis. COMPARISON: None. FINDINGS: Normal visualized lung bases. Normal bowel gas pattern with air seen to the rectum. Moderate amount of feces in the colon. The visualized liver, spleen and kidneys are grossly normal in size and morphology. Phleboliths. Right total hip arthroplasty and moderate lower lumbosacral spondylosis. Mild arthrosis of the left hip. RAD/Abdomen Single View IMPRESSION: Moderate amount of feces in the colon. No acute abnormality. Electronically Signed: Ronnie Bello MD at 15:55 EDT ,
== END | disposition home or self-care (01) ==
PROVIDERS: PCP Internal Medicine; Referring Provider Urology; Visit Provider Urology
DX: Z87.442 Personal history of urinary calculi (principal); R82.71 Bacteriuria
CPT/HCPCS: 74018

== ENCOUNTER → 2023-07-28 | Outpatient (CLI) | payer MEDICARE, SELFPAY ==
[2023-07-28 15:43] LABS: Absolute Lymphocyte Count 1.09 X10^3/uL (0.83-4.51); Absolute Neutrophil Count 3.4 X10^3/uL (2.0-7.7); Basophil# 0.03 X10^3/uL; Basophil% 0.6 % (0-1); Eosinophil# 0.22 X10^3/uL; Eosinophils% 4.3 % (0-5); Hematocrit 36.4 % (37-47); Hemoglobin 10.8 g/dL (12.0-15.0); Lymphocyte # 1.09 X10^3/ul (0.83-4.51); Lymphocyte % 21.2 % (19-41); Mean Corp Hgb Conc 29.7 g/dL (32-36); Mean Corpuscular Hgb 27.1 pg (27.0-32.0); Mean Corpuscular Volume 91.5 fL (81-99); Mean Platelet Vol. 9.1 fl (6.2-12.0); Monocyte# 0.33 X10^3/uL; Monocyte% 6.4 % (0-10); NRBC Flagged by Analyzer 0 % (0-5); Neutrophil # 3.44 X10^3/uL (2.7-7.7); Neutrophil % 66.9 % (47-70); Platelet Count 355 K/mm3 (150-450); RBC Distribution Width CV 15.9 % (11.6-14.6); RBC Distribution Width SD 53.6 fl (35.1-43.9); Red Blood Count 3.98 M/mm3 (4.2-5.4); White Blood Count 5.1 K/mm3 (4.4-11.0)
[2023-07-28 16:05] LABS: Anion Gap 9 (5-15); BUN 16 mg/dL (7-18); BUN/Creat Ratio 18.1 RATIO (10-20); Calcium,Total 9.1 mg/dL (8.5-10.1); Chloride 105 mmol/L (98-107); Creatinine, Serum 0.88 mg/dL (0.55-1.02); EST Glomerular Filtration Rate 67 mL/min (>60); Est Glom Filt Rate - Afr Amer 81 mL/min (>60); Glucose 136 mg/dL (74-106); Potassium 3.9 mmol/L (3.5-5.1); Sodium Level 139 mmol/L (136-145)
[2023-07-28 16:14] LABS: Vitamin D,25 Hydroxy 29.7 ng/mL
== END | disposition home or self-care (01) ==
LOC: BIMLAB 13:58
PROVIDERS: PCP Internal Medicine; Visit Provider Internal Medicine
DX: E11.9 Type 2 diabetes mellitus without complications (principal); I10 Essential (primary) hypertension; M81.0 Age-related osteoporosis without current pathological fracture
CPT/HCPCS: 36415; 80048; 82306; 85025

== ENCOUNTER → 2024-02-05 | Outpatient (CLI) | payer MEDICARE, SELFPAY ==
[2024-02-05 12:13] LABS: Absolute Lymphocyte Count 1.21 X10^3/uL (0.83-4.51); Absolute Neutrophil Count 2.9 X10^3/uL (2.0-7.7); Basophil# 0.02 X10^3/uL; Basophil% 0.4 % (0-1); Eosinophil# 0.27 X10^3/uL; Eosinophils% 5.5 % (0-5); Hematocrit 36.9 % (37-47); Hemoglobin 11.1 g/dL (12.0-15.0); Lymphocyte # 1.21 X10^3/ul (0.83-4.51); Lymphocyte % 24.6 % (19-41); Mean Corp Hgb Conc 30.1 g/dL (32-36); Mean Corpuscular Hgb 28.2 pg (27.0-32.0); Mean Corpuscular Volume 93.7 fL (81-99); Monocyte# 0.48 X10^3/uL; Monocyte% 9.8 % (0-10); NRBC Flagged by Analyzer 0 % (0-5); Neutrophil # 2.91 X10^3/uL (2.7-7.7); Neutrophil % 59.1 % (47-70); Platelet Count 347 K/mm3 (150-450); RBC Distribution Width CV 15.3 % (11.6-14.6); RBC Distribution Width SD 53.1 fl (35.1-43.9); Red Blood Count 3.94 M/mm3 (4.2-5.4); White Blood Count 4.9 K/mm3 (4.4-11.0)
[2024-02-05 12:59] LABS: Hemoglobin A1c 6.6 % (3.8-5.6)
[2024-02-05 15:36] LABS: ALB/GLOB Ratio 0.9 RATIO (0.9-2.4); AST(SGOT) 15 U/L (15-37); Alanine Aminotransfer ALT/SGPT 18 U/L (13-56); Albumin, Serum 3.5 g/dL (3.2-5.0); Alkaline Phosphatase 140 U/L (45-117); Anion Gap 4 (5-15); BUN 16 mg/dL (7-18); BUN/Creat Ratio 18.9 RATIO (10-20); Calcium,Total 9.1 mg/dL (8.5-10.1); Chloride 106 mmol/L (98-107); Cholesterol 160 mg/dL (200); Creatinine, Serum 0.85 mg/dL (0.55-1.02); EST Glomerular Filtration Rate 70 mL/min (>60); Est Glom Filt Rate - Afr Amer 85 mL/min (>60); Glucose 98 mg/dL (74-106); High Density Lipoprotein 45 mg/dL; Protein, Total 7.5 g/dL (6.4-8.2); Sodium Level 138 mmol/L (136-145); Triglycerides 205 mg/dL; Very Low Density Lipoprotein 41 mg/dL (5-40)
[2024-02-05 15:38] LABS: Vitamin D,25 Hydroxy 33.6 ng/mL
== END | disposition home or self-care (01) ==
LOC: BIMLAB 11:05
PROVIDERS: PCP Internal Medicine; Referring Provider Internal Medicine; Visit Provider Internal Medicine
DX: E11.9 Type 2 diabetes mellitus without complications (principal); M81.0 Age-related osteoporosis without current pathological fracture; K21.9 Gastro-esophageal reflux disease without esophagitis; I10 Essential (primary) hypertension
CPT/HCPCS: 36415; 80053; 80061; 82306; 83036; 85025

== ENCOUNTER → 2024-05-16 | Outpatient (CLI) | payer MEDICARE, SELFPAY ==
--- NOTE | 2024-05-16 14:57 | BD_ITS ---
PROCEDURE: DEXA BONE DENSITY STUDY 05/16/2024 REASON FOR EXAM: OSTEOPOROSIS F, age 73 y/o . Postmenopausal. TECHNIQUE: DXA scan of the lumbar spine and left hip, using make and model. REFERENCE LINKS: [facility]CD Adult Positions COMPARISON: Comparison is made with prior study dated May 27, 2021. FINDINGS: BMD and T-SCORES Lumbar spine: 1.214 g/cm2, T-Score 1.6 L1 through L4 Change from prior: Improved by 1.7% Left femoral neck: 0.535 g/cm2, T-Score -2.8 Femoral neck comparison data not recommended for monitoring change. Left total hip: 0.687 g/cm2, T-Score -2.1 Change from prior: Loss of 1.8% Fracture Risk Calculation: FRAX (10-year Fracture Risk) Score: FRAX scores should never be reported in a patient with osteoporosis on DEXA or for any patient that is on bone medication. The patient doesmeet the pharmacological treatment recommendations for prevention of osteoporosis BD/Dexa Bone Density Study IMPRESSION: OSTEOPOROSIS. Recommend follow-up as clinically warranted. Reading Location: [place] [id number]
== END | disposition home or self-care (01) ==
LOC: OPBD 14:55
PROVIDERS: PCP Internal Medicine; Referring Provider Internal Medicine; Visit Provider Internal Medicine
DX: M81.0 Age-related osteoporosis without current pathological fracture (principal); Z78.0 Asymptomatic menopausal state
CPT/HCPCS: 77080

== ENCOUNTER → 2024-06-19 | Outpatient (CLI) | payer MEDICARE, SELFPAY ==
--- NOTE | 2024-06-19 15:10 | RAD_ITS ---
PROCEDURE: CHEST PA AND LATERAL 06/19/2024 REASON FOR EXAM: COUGH, CHEST TIGHTNESS TECHNIQUE: Frontal and lateral views of the chest. COMPARISON: Chest x-ray dated 12/30/2020. FINDINGS: The cardiac silhouette is within normal limits. No focal infiltrate or consolidation is seen within the lungs. There is no pneumothorax. There are no acute osseous abnormalities present. Degenerative changes seen within the bilateral shoulders, [id number]. Advanced degenerate changes seen within the spine. Extensive atheromatous calcification seen within the aorta. RAD/Chest PA and Lateral IMPRESSION: No focal infiltrate or consolidation is seen within the lungs. Other findings as above. Reading Location: [facility]
== END | disposition home or self-care (01) ==
LOC: RAD 15:03
PROVIDERS: PCP Internal Medicine; Referring Provider Internal Medicine; Visit Provider Internal Medicine
DX: R05.9 Cough, unspecified (principal); R07.89 Other chest pain
CPT/HCPCS: 71046

== ENCOUNTER 2024-08-07 13:45 | Outpatient (CLI) | payer MEDICARE, SELFPAY ==
[2024-08-07 14:10] VITALS: BP 149/72; PULSE 92; RESP 16; TEMP 36.3; O2SAT 97; BMI 36.9
[2024-08-07] MEDS: 0.9% NaCl IVPB Med Flush (100mL) 15 ML IV (14:19)
[2024-08-07] MEDS: Zoledronic Acid 5 MG 100 ML 300 MG IV (14:19)
[2024-08-07] MEDS: 0.9% NaCl Peripheral Flush Adult IV (14:19)
[2024-08-07 14:50] VITALS: BP 140/76; PULSE 77; RESP 16; TEMP 35.8; O2SAT 99
== END 2024-08-07 23:59 | disposition home or self-care (01) ==
LOC: MEDOUTP 13:45
PROVIDERS: PCP Internal Medicine; Referring Provider Internal Medicine; Visit Provider Internal Medicine
DX: M81.0 Age-related osteoporosis without current pathological fracture (principal)
CPT/HCPCS: 96365; A4216; J3489

== ENCOUNTER → 2024-11-01 | Outpatient (CLI) | payer MEDICARE, SELFPAY ==
[2024-11-01 22:29] LABS: Hematocrit 36.1 % (37-47); Hemoglobin 11.0 g/dL (12.0-15.0); Immature Granulocytes Count 0.020 X10^3/uL (0.0-0.0); Mean Corp Hgb Conc 30.5 g/dL (32-36); Mean Corpuscular Volume 94.0 fL (81-99); Mean Platelet Vol. 8.9 fl (6.2-12.0); NRBC Flagged by Analyzer 0 % (0-5); Platelet Count 355 K/mm3 (150-450); RBC Distribution Width CV 15.7 % (11.6-14.6); RBC Distribution Width SD 53.6 fl (35.1-43.9); Red Blood Count 3.84 M/mm3 (4.2-5.4); White Blood Count 6.2 K/mm3 (4.4-11.0)
[2024-11-01 22:54] LABS: Creatinine, Urine (random) 220.00 mg/dL (28.00-217.00)
[2024-11-01 23:10] LABS: AST(SGOT) 17 U/L (<=31); Alanine Aminotransfer ALT/SGPT 8 U/L (<=34); Albumin, Serum 4.0 g/dL (3.4-4.8); Alkaline Phosphatase 117 U/L (35-104); Anion Gap 14 (5-15); BUN 14 mg/dL (4-19); BUN/Creat Ratio 14.1 RATIO (10-20); Calcium,Total 9.3 mg/dL (7.6-11.0); Carbon Dioxide 22.6 mmol/L (21.0-32.0); Chloride 103 mmol/L (98-108); Cholesterol 179 mg/dL (<=200); Ferritin 31 ng/mL (22-378); Globulin 3.4 g/dL (2.2-4.2); Glucose 92 mg/dL (70-99); Low Density Lipoprotein Calc. 78 mg/dL; Potassium 4.0 mmol/L (3.3-5.1); Triglycerides 295 mg/dL; Very Low Density Lipoprotein 59 mg/dL (5-40); Vitamin D,25 Hydroxy 28.3 ng/mL (30-100); cholesterol:hdl ratio screen 4.23
[2024-11-02 01:12] LABS: Iron 42 ug/dL (50-170); Iron Binding Capacity,Total 352 ug/dL (250-450); Iron Binding Capacity,Unsat 310 ug/dL (228-428)
[2024-11-02 01:20] LABS: Microalbumin,Random Urine 30.0 mg/L (<20 mg/L)
== END | disposition home or self-care (01) ==
LOC: BIMLAB 15:23
PROVIDERS: PCP Internal Medicine; Referring Provider Internal Medicine; Visit Provider Internal Medicine
DX: I10 Essential (primary) hypertension (principal); E11.9 Type 2 diabetes mellitus without complications; M81.0 Age-related osteoporosis without current pathological fracture; D64.9 Anemia, unspecified
CPT/HCPCS: 36415; 80053; 80061; 82043; 82306; 82570; 82728; 83540; 83550; 85025